=== PATIENT | female | born 1930 | race Caucasian/White ===

== ENCOUNTER 2019-05-22 10:16 | Inpatient (IN) ==
[2019-05-22] MEDS ORDERED: ASPIRIN CHEW 324 MG PO STA (10:26)
[2019-05-22 10:47] LABS: Basophils # (auto) 0.02 K/uL (0-0.2); Basophils % (auto) 0.1 %; Eosinophils # (auto) 0.05 K/uL (0-0.5); Eosinophils % (auto) 0.3 %; Hematocrit (blood only) 25.5 % (37-47); Hemoglobin 8.4 g/dL (12.0-16.0); Immature Granulocytes # (auto) 0.05 K/uL (0.00-0.02); Immature Granulocytes % (auto) 0.3 %; Lymphocytes % (auto) 5.5 %; Mean Corpuscular Hgb Conc 32.9 g/dL (32-36); Mean Corpuscular Volume 91.4 fL (80-100); Mean Platelet Volume 9.5 fL (7.4-10.4); Monocytes # (auto) 0.53 K/uL (0.11-0.59); Monocytes % (auto) 3.2 %; Neutrophils # (auto) 14.92 K/uL (1.4-6.5); Neutrophils % (auto) 90.6 %; Platelet Count 308 K/uL (130-400); RDW Coefficient of Variation 14.9 % (11.5-14.5); RDW Standard Deviation 49.6 fL (36.4-46.3); Red Blood Count 2.79 M/uL (4.2-5.4); White Blood Count 16.47 K/uL (4.8-10.8)
--- NOTE | 2019-05-22 11:05 | XRay Report ---
SINGLE VIEW CHEST CLINICAL HISTORY: Dyspnea. Left-sided chest pain. FINDINGS: An AP, portable, upright chest radiograph is obtained. No prior studies are available for c omparison at the time of dictation. The examination is degraded by portable technique and patient rot ation. The heart is enlarged and there is atherosclerotic calcification of the thoracic aorta. The p ulmonary vasculature is noncongested. Nonspecific interstitial thickening is likely chronic. No airsp [place] consolidation or large pleural effusion is identified. No pneumothorax is seen. The skeletal stru ctures are osteopenic. The bony thorax is grossly intact. Degenerative change and scoliosis are noted in the thoracic spine. Arthritic change is seen in the shoulders. IMPRESSION: Cardiomegaly with no acute cardiopulmonary abnormality. Electronically signed by: Jefe High M.D. 05/22/2019 11:04 AM
[2019-05-22 11:06] LABS: Alanine Aminotransferase 30 U/L (12-78); Albumin Level 2.7 gm/dl (3.4-5.0); Aspartate Aminotransferase 23 U/L (15-37); BUN Creatinine Ratio 31.5 (10-20); Bilirubin Direct 0.1 mg/dl (0-0.2); Blood Urea Nitrogen 23 mg/dl (7-18); Calcium 8.9 mg/dl (8.5-10.1); Carbon Dioxide 24 mmol/L (21-32); Chloride 101 mmol/L (98-107); Creatinine Clr Calc Pharmacy 39.4 ml/min; Est GFR (African American) 84.6; Glucose 121 mg/dl (70-99); Potassium 4.1 mmol/L (3.5-5.1); Sodium 134 mmol/L (136-145)
[2019-05-22 11:10] LABS: Alkaline Phosphatase 104 U/L (45-117); Bilirubin,Total 0.5 mg/dl (0.2-1); Total Protein 6.3 gm/dl (6.4-8.2); Troponin I < 0.015 ng/ml (0-0.045)
[2019-05-22 11:34] LABS: Appearance Urine Clear (Clear); Bacteria Urine Automated Negative (Negative); Bilirubin Urine Negative (Negative); Blood Urine Negative (Negative); Color Urine Dark Yellow; Epithelial Cell Urine Auto >30 /lpf (0-5); Glucose Urine UA Negative (Negative); Ketones Urine Trace (Negative); Leukocyte Esterase Urine 1+ (Negative); Nitrite Urine Negative (Negative); Protein Urine 1+ (Negative); Specific Gravity Urine 1.026 (1.000-1.030); Urobilinogen Urine Negative (Negative)
[2019-05-22] MEDS ORDERED: PANTOprazole 80 MG in DEXTROSE 5% 100 ML IV SCH (11:45)
[2019-05-22] MEDS ORDERED: PANTOprazole 40 MG in DEXTROSE 5% 100 ML IV SCH (12:00)
[2019-05-22 12:25] LABS: INR 1.1 (0.9-1.1); Partial Thromboplastin Ratio 0.9; Partial Thromboplastin Time 25.4 Seconds (21.0-31.0); Prothrombin Time 10.9 Seconds (9.0-12.0)
--- NOTE | 2019-05-22 12:34 | History & Physical Report ---
Date of Service May 22, 2019 Assessment & Plan (1) GI bleed: Undetermined source. No overt melena or hematochezia. No abdominal tenderness or dysphagia. Continue Protonix drip. Clear liquid diet. Serial hemoglobin levels. GI consultation Present on Admission?: Yes (2) Left-sided chest pain: Associated with dyspnea on exertion. No acute EKG changes. Obtain cardiac echo and cardiology consultation. Telemetry. Serial troponins Present on Admission?: Yes (3) Essential hypertension: Continue valsartan and verapamil. Hold hydrochlorothiazide. Hold antihypertensives if hypotension occurs (4) DVT prophylaxis: Avoid heparin and Lovenox. SCDs only (5) DNR (do not resuscitate): Per patient and family request History of Present Illness Chief Complaint: Dyspnea on exertion, left chest pain at rest and with exertion Primary Care Provider: [facility] 89-year-old female with 4 to 5-day history of dyspnea on exertion which resolved at rest. She also had dull left-sided chest pain at rest and with activity but seem to be more associated with exertion. She came to the ED for evaluation. She was noted to be anemic with hemoglobin 8.4 and she had Hemoccult positive stool. There was no melena or hematochezia. No dysphagia. EKG reveals no acute changes. She will need both cardiology and GI evaluation. She has requested a DNR status per advanced directives Allergies Allergy/AdvReac Type Severity Reaction Status Date / Time Sulfa (Sulfonamide AdvReac Unknown Unknown Unverified 05/22/19 11:08 Antibiotics) Home Medications Home Medications Medication Instructions Recorded Confirmed Type acetaminophen [Tylenol] 650 mg PO BID 05/11/19 05/22/19 History aspirin 325 mg PO HS 05/11/19 05/22/19 History atorvastatin 40 mg PO HS 05/11/19 05/22/19 History cetirizine [Zyrtec] 10 mg PO DAILY PRN 05/11/19 05/22/19 History multivitamin 1 tab PO QAM 05/11/19 05/22/19 History omeprazole 20 mg PO QAM 05/11/19 05/22/19 History valsartan-hydrochlorothiazide 1 tab PO QAM 05/11/19 05/22/19 History verapamil 120 mg PO HS 05/11/19 05/22/19 History Past Med/Surg History Medical History Essential hypertension (Chronic) GI bleed (Acute) Left-sided chest pain (Acute) Acute UTI (Acute) Acute hyponatremia (Acute) H/O: hysterectomy Migraines Social History Preferred Language: Togolese marital status: / Current Living Situation: Personal Care Facility current occupational status: retired Feels Safe at Home: Yes Smoking Status: Never smoker Review of Systems Review of Systems: Constitutional-no fever or chills ENT-no blurred vision, no double vision, no epistaxis, no sore throat Respiratory-no cough, no wheezing. Dyspnea on exertion as described above Cardiac-no palpitations, no syncope. Chest pain as described above GI-no nausea, vomiting, diarrhea, melena, hematochezia -no urinary retention, no urinary incontinence, no dysuria, no hematuria Musculoskeletal-no joint pain, no muscle tenderness Skin-no bruising, no rashes, no pruritus Neuro-no isolated weakness, no paresthesia, no weakness Psych-no depression, no anxiety Physical Exam Physical Exam: General-alert and oriented x3, no fevers, no chills HEENT-head atraumatic and normocephalic, TMs intact bilaterally, pupils equal and reactive to light, extraocular muscles intact Neck-no lymphadenopathy or thyromegaly, trachea midline Chest-clear to auscultation percussion. No rales wheezing or rhonchi Cardiac-regular rate and rhythm, normal S1 and S2. Aortic sclerosis/stenosis murmur Abdomen-normal bowel sounds, nontender, no hepatosplenomegaly Extremities-no cyanosis, clubbing, or edema Neuro-cranial nerves II through XII intact, motor and sensory function within normal limits, strength symmetrical 5/5, no focal deficits Psych-normal affect, normal mood Results & Data Vital Signs (Past 12 Hours) Vital Signs Temp Pulse Pulse Resp BP BP Pulse Ox 05/22/19 11:59 67 16 128/42 L 95 05/22/19 10:46 36.9 C 73 16 153/49 H 96 05/22/19 10:21 69 16 96 Laboratory Results 05/22/19 10:32 05/22/19 10:32 PG Care Time/CCT Total # of Minutes Spent Total Time Spent with Patient: Total time spent is greater than 50% in coordination of care (as documented) at patient's floor/unit and/or counseling patient:
[2019-05-22] MEDS ORDERED: CETIRIZINE HCL 10 MG TABLET PO PRN (13:30)
[2019-05-22] MEDS ORDERED: ACETAMINOPHEN 325 MG TAB PO PRN (13:30)
[2019-05-22] MEDS ORDERED: ALUMINUM/MAGNESIUM SUSP 30 ML UDC PO PRN (13:30)
[2019-05-22] MEDS ORDERED: NITROGLYCERIN SL 0.4 MG/TAB TAB SL PRN (13:30)
[2019-05-22] MEDS: SODIUM CHLORIDE 0.9% 1000ML 1,000 ML IV SCH (16:35)
--- NOTE | 2019-05-22 17:51 | Emergency Department Note ---
Entered by Therese Schmid acting as a scribe for ED Provider Note Name: Nighat Greene Age: 89, F Arrives Via: Ambulance Informant: Patient CC: Shortness of breath HPI: The patient is a 89 year old female who arrives for evaluation of her shortness of breath that started 1 hour ago. The patient states that she had had feelings of pressure in her chest intermittently for the past 5 days. The patient states that she has been shivery and shaking latterly, but feels okay now. The patient notes that she has been taking tums to try to ease the pains. Per EMS, the patient had 324mg aspirin prior to arrival. ROS: See above HPI for pertinent positives & negatives. A total of 10 systems reviewed and were otherwise negative. Past Medical History: Acute hyponatremia Past Surgical History: Hysterectomy. Family History: Family history non-contributory. Social History: Living in personal care facility, , never a smoker. Home Medications: See below. Allergies Sulfa. Physical: Vitals: BP 153/49, P 73, RR 16, Temp 36.9 C, O2 sat 96 room air. Exam: GENERAL: Patient is anxious appearing and in mild distress. EYES: No scleral icterus, unremarkable pupils. ENT: Mucous membranes moist, no nasal congestion. NECK: No masses appreciated, no meningismus, trachea is midline. RESPIRATORY: No dyspnea. Clear to auscultation and equal bilaterally. No wheeze, no rhonchi. CARDIOVASCULAR: Regular rate and rhythm. No murmurs, rubs, gallops appreciated. GASTROINTESTINAL: Abdomen soft, non-tender, no peritonitis. Bowel sounds positive. No masses appreciated. RECTAL: Normal perirectal, no tenderness, black heme positive stool. BACK: No midline tenderness, no CVA tenderness EXTREMITIES: Normal motion all extremities, no cyanosis, no edema. NEUROLOGIC: Alert and oriented, no acute motor or sensory deficits, no focal weakness, cranial nerves grossly intact. SKIN: No rash, no jaundice, no diaphoresis. ED Course: Prior Medical Record, Triage/Nursing Notes, Medications, Allergies reviewed by Me Vital Signs: reviewed and remarkable for mild HTN improved. Labs: Reviewed and remarkable for anemia, normal trop Interventions: saline lock, protonix bolus/iv Imaging: Radiology results as stated below per my review and the radiologist's interpretation: SINGLE VIEW CHEST CLINICAL HISTORY: Dyspnea. Left-sided chest pain. FINDINGS: An AP, portable, upright chest radiograph is obtained. No prior studies are available for comparison at the time of dictation. The examination is degraded by portable technique and patient rotation. The heart is enlarged and there is atherosclerotic calcification of the thoracic aorta. The pulmonary vasculature is noncongested. Nonspecific interstitial thickening is likely chronic. No airspace consolidation or large pleural effusion is identified. No pneumothorax is seen. The skeletal structures are osteopenic. The bony thorax is grossly intact. Degenerative change and scoliosis are noted in the thoracic spine. Arthritic change is seen in the shoulders. IMPRESSION: Cardiomegaly with no acute cardiopulmonary abnormality. Electronically signed by: Jefe High M.D. 05/22/2019 11:04 AM EKG: Per My Interpretation: Indication Chest Pain: NSR with PAC 74bpm qtc 412. no ischemia. No previous for comparison Course: 1022: Past medical records reviewed. The patient was evaluated in room A9. A complete history and physical exam was performed. 1132: I reevaluated the patient and she is feeling better. 1136: I spoke with pharmacy and requested IV protonics with bolus and drip. 1138: I discussed the patient's case with Dr. Richardson and he thinks that we should hold on transfusion at this time. 1140: I discussed the patient's case with Dr. Richardson- [facility]. He will evaluate the patient for further management. Blood pressure: Normal. No Referral necessary Disposition: Hospitalization Differentials: Etiologies such as shingles, musculoskeletal pain, pericarditis, myocarditis, cardiac ischemia, pericardial tamponade, pneumonia, pneumothorax, pleural effusion, hemothorax, pleurisy, aortic pathology, pulmonary embolism, intra- abdominal process, as well as others were considered. Medical Decision Makin yr old female with several days of exertional chest pain and MARTINEZ. She notes some periodic epigastric pain thus started on Tums without significant improvement. No history of stomach ulcers though is on omeprazole. Denies history of ACS as well. She is noted to have acute anemia and rectal exam with black heme positive stool. With acute anemia started on protonix gtt, but as she is currently symptom free at rest will hold on transfusion with her current HgB. Already had ASA by EMS. She is stable, breathing comfortably and agreeable to hospitalization. Impression: Upper GI bleed, blood loss anemia, left sided chest pain. The scribe's documentation has been prepared under my direction and personally reviewed by me in its entirety. I confirm that the note above accurately reflects all work, treatment, procedures, and medical decision making performed by me. 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 Beliefs That Will Affect Care: None marital status: / Current Living Situation: Personal Care Facility current occupational status: retired Feels Safe at Home: Yes Safety Concerns: Feels Safe At This Time Smoking Status: Never smoker Hx Alcohol Use: No Hx Substance Use: No Results & Data Vital Signs Vital Signs - 24 hr 05/22/19 10:21 05/22/19 10:44 05/22/19 10:46 Temperature 36.9 C Temperature Source Oral Sepsis Recent Fever Within 48 Hours No Sepsis New/Unexplained Change in Mental Status No Sepsis Action Taken by Nursing No Action Required Pulse Rate 69 73 Pulse Rate [Left] Respiratory Rate 16 16 Respiratory Effort / Characteristics Non-Labored Spontaneous Respiratory Depth Normal Respiratory Pattern Regular Blood Pressure 153/49 H Blood Pressure [Right Arm] Blood Pressure Mean 83 Blood Pressure Mean [Right Arm] Blood Pressure Position Lying Blood Pressure Position [Right Arm] Pulse Oximetry 96 96 Oxygen Delivery Method Room Air Room Air Room Air 05/22/19 11:59 Temperature Temperature Source Sepsis Recent Fever Within 48 Hours Sepsis New/Unexplained Change in Mental Status Sepsis Action Taken by Nursing Pulse Rate Pulse Rate [Left] 67 Respiratory Rate 16 Respiratory Effort / Characteristics Non-Labored Spontaneous Respiratory Depth Normal Respiratory Pattern Blood Pressure Blood Pressure [Right Arm] 128/42 L Blood Pressure Mean Blood Pressure Mean [Right Arm] 70 Blood Pressure Position Blood Pressure Position [Right Arm] Lying Pulse Oximetry 95 Oxygen Delivery Method Room Air Home Medications Current Medication List: was personally reviewed by me Laboratory Data Attestation: I reviewed the patient's lab results. Result diagrams: 05/22/19 16:12 05/22/19 10:32 Lab Results 05/22/19 05/22/19 05/22/19 Range/Units 10:30 10:32 10:32 WBC 16.47 H (4.8-10.8) K/uL RBC 2.79 L (4.2-5.4) M/uL Hgb 8.4 L (12.0-16.0) g/dL Hct 25.5 L (37-47) % MCV 91.4 (80-100) fL MCH 30.1 (25-34) pg MCHC 32.9 (32-36) g/dL RDW Std Deviation 49.6 H (36.4-46.3) fL RDW Coeff of Sean 14.9 H (11.5-14.5) % Plt Count 308 (130-400) K/uL MPV 9.5 (7.4-10.4) fL Immature Gran % (Auto) 0.3 % Neut % (Auto) 90.6 % Lymph % (Auto) 5.5 % Lassen % (Auto) 3.2 % Eos % (Auto) 0.3 % Baso % (Auto) 0.1 % Immature Gran # (Auto) 0.05 H (0.00-0.02) K/uL Neut # (Auto) 14.92 H (1.4-6.5) K/uL Lymph # (Auto) 0.90 L (1.2-3.4) K/uL [place]assen # (Auto) 0.53 (0.11-0.59) K/uL Eos # (Auto) 0.05 (0-0.5) K/uL Baso # (Auto) 0.02 (0-0.2) K/uL PT 10.9 (9.0-12.0) Seconds INR 1.1 (0.9-1.1) APTT 25.4 (21.0-31.0) Seconds PTT Ratio 0.9 Sodium 134 L (136-145) mmol/L Potassium 4.1 (3.5-5.1) mmol/L Chloride 101 (98-107) mmol/L Carbon Dioxide 24 (21-32) mmol/L Anion Gap 9.0 (3-11) BUN 23 H (7-18) mg/dl Creatinine 0.73 (0.6-1.2) mg/dl Est Cr Clr Drug Dosing 39.4 ml/min Est GFR ( Amer) 84.6 Est GFR (Non-Af Amer) 73.0 BUN/Creatinine Ratio 31.5 H (10-20) Glucose 121 H (70-99) mg/dl Calcium 8.9 (8.5-10.1) mg/dl Total Bilirubin 0.5 (0.2-1) mg/dl Direct Bilirubin 0.1 (0-0.2) mg/dl AST 23 (15-37) U/L ALT 30 (12-78) U/L Alkaline Phosphatase 104 (45-117) U/L Troponin I < 0.015 (0-0.045) ng/ml Total Protein 6.3 L (6.4-8.2) gm/dl Albumin 2.7 L (3.4-5.0) gm/dl Lipase 162 (73-393) U/L Urine Color Urine Appearance (Clear) Urine pH (4.5-7.5) Ur Specific [place] (1.000-1.030) Urine Protein (Negative) Urine Glucose (UA) (Negative) Urine Ketones (Negative) Urine Blood (Negative) Urine Nitrite (Negative) Urine Bilirubin (Negative) Urine Urobilinogen (Negative) Ur Leukocyte Esterase (Negative) Urine WBC (Auto) (0-5) /hpf Urine RBC (Auto) (0-4) /hpf U Hyaline Cast (Auto) (0-5) /lpf U Epithel Cells (Auto) (0-5) /lpf Urine Bacteria (Auto) (Negative) Blood Type Antibody Screen 05/22/19 05/22/19 Range/Units 11:17 11:55 WBC (4.8-10.8) K/uL RBC (4.2-5.4) M/uL Hgb (12.0-16.0) g/dL Hct (37-47) % MCV (80-100) fL MCH (25-34) pg MCHC (32-36) g/dL RDW Std Deviation (36.4-46.3) fL RDW Coeff of Sean (11.5-14.5) % Plt Count (130-400) K/uL MPV (7.4-10.4) fL Immature Gran % (Auto) % Neut % (Auto) % Lymph % (Auto) % Lassen % (Auto) % Eos % (Auto) % Baso % (Auto) % Immature Gran # (Auto) (0.00-0.02) K/uL Neut # (Auto) (1.4-6.5) K/uL Lymph # (Auto) (1.2-3.4) K/uL [place] # (Auto) (0.11-0.59) K/uL Eos # (Auto) (0-0.5) K/uL Baso # (Auto) (0-0.2) K/uL PT (9.0-12.0) Seconds INR (0.9-1.1) APTT (21.0-31.0) Seconds PTT Ratio Sodium (136-145) mmol/L Potassium (3.5-5.1) mmol/L Chloride (98-107) mmol/L Carbon Dioxide (21-32) mmol/L Anion Gap (3-11) BUN (7-18) mg/dl Creatinine (0.6-1.2) mg/dl Est Cr Clr Drug Dosing ml/min Est GFR ( Amer) Est GFR (Non-Af Amer) BUN/Creatinine Ratio (10-20) Glucose (70-99) mg/dl Calcium (8.5-10.1) mg/dl Total Bilirubin (0.2-1) mg/dl Direct Bilirubin (0-0.2) mg/dl AST (15-37) U/L ALT (12-78) U/L Alkaline Phosphatase (45-117) U/L Troponin I (0-0.045) ng/ml Total Protein (6.4-8.2) gm/dl Albumin (3.4-5.0) gm/dl Lipase (73-393) U/L Urine Color Dark Yellow Urine Appearance Clear (Clear) Urine pH 5.0 (4.5-7.5) Ur Specific [place] 1.026 (1.000-1.030) Urine Protein 1+ H (Negative) Urine Glucose (UA) Negative (Negative) Urine Ketones Trace H (Negative) Urine Blood Negative (Negative) Urine Nitrite Negative (Negative) Urine Bilirubin Negative (Negative) Urine Urobilinogen Negative (Negative) Ur Leukocyte Esterase 1+ H (Negative) Urine WBC (Auto) 10-30 H (0-5) /hpf Urine RBC (Auto) 5-10 H (0-4) /hpf U Hyaline Cast (Auto) 10-30 H (0-5) /lpf U Epithel Cells (Auto) >30 H (0-5) /lpf Urine Bacteria (Auto) Negative (Negative) Blood Type O Positive Antibody Screen NEGATIVE Administered Medications Sodium Chloride (Nss 1000ml) 1,000 mls @ 60 mls/hr IV .[id number] BAILEY Stop: 06/21/19 13:59 Last Admin: 05/22/19 16:35 Dose: 60 mls/hr Documented by: [id number] Discontinued Medications Aspirin (Aspirin) 324 mg PO NOW STA Stop: 05/22/19 10:27 Last Admin: 05/22/19 10:43 Dose: Not Given Documented by: [id number] Pantoprazole Sodium 80 mg/ (Dextrose) 120 mls @ 480 mls/hr IV 1145 BAILEY Stop: 05/22/19 11:59 Last Infusion: 05/22/19 12:22 Dose: 0 mls/hr Documented by: [id number] Admin: 05/22/19 12:03 Dose: 480 mls/hr Documented by: [id number] Pantoprazole Sodium 40 mg/ (Dextrose) 100 mls @ 20 mls/hr IV Q5H BAILEY Stop: 05/22/19 16:59 Last Admin: 05/22/19 12:22 Dose: 20 mls/hr Documented by: [id number] Imaging Data Radiologist's Impression: Radiology results as stated below per my review and the radiologist's interpretation: SINGLE VIEW CHEST CLINICAL HISTORY: Dyspnea. Left-sided chest pain. FINDINGS: An AP, portable, upright chest radiograph is obtained. No prior studies are available for comparison at the time of dictation. The examination is degraded by portable technique and patient rotation. The heart is enlarged and there is atherosclerotic calcification of the thoracic aorta. The pulmonary vasculature is noncongested. Nonspecific interstitial thickening is likely chronic. No airspace consolidation or large pleural effusion is identified. No pneumothorax is seen. The skeletal structures are osteopenic. The bony thorax is grossly intact. Degenerative change and scoliosis are noted in the thoracic spine. Arthritic change is seen in the shoulders. IMPRESSION: Cardiomegaly with no acute cardiopulmonary abnormality. Electronically signed by: Jefe High M.D. 05/22/2019 11:04 AM Discharge Plan Visit Data *Final* Discharge Date/Time: 05/22/19 13:00 Chief Complaint: Shortness of Breath/Dyspnea ED Provider: Avni Boston Discharge Problem: Upper gastrointestinal bleed, Blood loss anemia, Left-sided chest pain Patient Disposition: Admitted As Inpatient Discharge Instructions Interventions: ED Discharge Assessment Last Done: 05/22/19 13:00 The scribe's documentation has been prepared under my direction and personally reviewed by me in its entirety. I confirm that the note above accurately reflects all work, treatment, procedures, and medical decision making performed by me.
[2019-05-22] MEDS: ATORVASTATIN 40 MG TAB PO SCH (19:58)
[2019-05-22] MEDS: VERAPAMIL HCL 120 MG TABCR PO SCH (19:58)
[2019-05-22] MEDS: SUCRALFATE 1 GM/10 ML UDC PO SCH (22:12)
--- NOTE | 2019-05-23 01:32 | Consultation Report ---
DATE OF CONSULTATION: 05/22/2019 AGE: 89. SEX: Female. RACE: . ATTENDING PHYSICIAN: Dr. Michael Richardson. CONSULTING PHYSICIAN: Dr. Paul Joya. REASON FOR CONSULTATION: GI bleed. HISTORY OF PRESENT ILLNESS: Nighat Greene is an 89-year-old female who presented to the Department of Emergency Medicine earlier today secondary to shortness of breath and chest pressure. She stated that she had been taking Tums prior to her arrival as she had had reflux in the past. She also takes omeprazole 20 mg p.o. q.a.m. and states that she was evaluated in the hospital earlier this month for a UTI. Upon arrival to the Department of Emergency Medicine, her H and H was noted to be 11.0 and 32.1. She was noted to have black heme positive stool in the ER. EKG and troponins were normal in the ER and she did undergo an echocardiogram as well, which showed a left ventricular ejection fraction of 55-60%. Chest x-ray was unremarkable. She was subsequently started on a Protonix drip, admitted. At the time that I saw her, she was feeling slightly improved, though was still continuing to have intermittent chest pain which she described as 4-5/10 in intensity, worse following meals. She described it as a sharp, stabbing pain and does radiate into her left shoulder, though she does state that it feels like heartburn. She denies any hematemesis, melena or hematochezia. She states that she does take aspirin daily, though uses Tylenol for all other pain control. She denies any other NSAID use and denies any blood thinners or antiplatelet therapy other than the aspirin. She denies any further complaints including fevers, chills, lightheadedness, dizziness, palpitations, shortness of breath, cough, dysuria, hematuria, arthralgias, myalgias, numbness or tingling in her extremities or skin rash. PAST MEDICAL HISTORY: Significant for hypertension, GI bleeding, left-sided chest pain, GERD. PAST SURGICAL HISTORY: Includes a hysterectomy. ALLERGIES: SULFA. MEDICATIONS: Include a Protonix drip, Zyrtec 10 mg p.o. daily, Mag-Ox 15 mL p.o. q. 4 p.r.n. constipation, nitroglycerin sublingually 0.4 mg as directed p.r.n. chest pain, Zofran 4 mg IV q. 6 p.r.n., Lipitor 40 mg p.o. at bedtime, verapamil 120 mg p.o. at bedtime, Diovan 320 mg p.o. q.a.m., multivitamin 1 tab p.o. q.a.m. SOCIAL HISTORY: No tobacco, alcohol or illicit drug use. FAMILY HISTORY: Negative for GI malignancy or inflammatory bowel disease. REVIEW OF SYSTEMS: Negative x12 system review other than pertinent positives listed in the HPI. PHYSICAL EXAMINATION: VITAL SIGNS: Temp 36.6, pulse 77, respirations 18, blood pressure 135/65, pulse ox 96% on room air. GENERAL: She is awake, cooperative, no acute distress. HEAD: Normocephalic, atraumatic. EYES: Pupils equal, round. Extraocular muscles are intact. ENT: External evaluation of ears and nose are normal. Oropharynx is clear. NECK: Soft and supple. There is no JVD or lymphadenopathy. CHEST: Clear to auscultation bilaterally. CARDIOVASCULAR SYSTEM: Regular rate and rhythm. ABDOMEN: Soft, nontender, nondistended. Positive bowel sounds. There is no hepatosplenomegaly or stigmata of chronic liver disease. EXTREMITIES: No clubbing, cyanosis, or edema. SKIN: Soft, pink. Good turgor. LABORATORY STUDIES AND RADIOGRAPHIC STUDIES: Were reviewed in the HPI. IMPRESSION: An 89-year-old female presenting with shortness of breath, noted to have acute blood loss anemia with dark tarry heme positive stool in the ER. PLAN: At the present time, I would recommend that the patient receive a clear liquid diet. She will be kept n.p.o. after midnight. I would continue her on a Protonix drip at 8 mg per hour. I would recommend that she undergo transfusions to maintain her H and H above 8 and 24. I would also recommend that she undergo an upper endoscopy tomorrow for further evaluation of her symptoms. I did add Carafate therapy 1 gram p.o. q.i.d. a.c. and at bedtime to her regimen at present and I will make further recommendations following the above noted testing. Once again, thanks for allowing me to participate in the care of this patient. If you have any further questions, please do not hesitate in contacting me.
[2019-05-23] MEDS: VALSARTAN 80 MG TAB PO SCH (08:04)
[2019-05-23] MEDS: SODIUM CHLORIDE 0.9% 1000ML 1,000 ML IV SCH (08:29)
--- NOTE | 2019-05-23 08:54 | History & Physical Bridge Note ---
Date of Service May 23, 2019 History & Physical Bridge Note I have examined the patient, reviewed the History & Physical and in the interval since the performance of the History & Physical I have noted the following changes of clinical significance: no changes noted that would interfere with EGD today. Patient is NPO. Would recommend proceeding with EGD today. Would recommend resuming Protonix Drip. H/H 8.7/25.5. Supervising Physician Co-Signing Physician Notes Agree with ASHU Clifton as above Abd: Soft, NT, ND, +BS Continue current therapy EGD now
--- NOTE | 2019-05-23 08:58 | Anesthesiology Consultation ---
Date of Service May 23, 2019 Assessment & Plan (1) Encounter for pre-operative examination: Chart Review Chart Review: Acceptable Risk for Surgery and Patient NOT seen in Pre Admission Testing Consults Requested none History Surgery Operation Date: 05/23/19 10:15 Proposed Procedures p Esophagogastroduodenoscopy Dr Toan Rivera Case, DO Height/Weight Height: 5 ft 1 in Weight: 50.9 kg Allergies Allergy/AdvReac Type Severity Reaction Status Date / Time Sulfa (Sulfonamide AdvReac Unknown Unknown Unverified 05/22/19 11:08 Antibiotics) Medications Home Medications Medication Instructions Recorded Confirmed Last Taken acetaminophen [Tylenol] 650 mg PO BID 05/11/19 05/22/19 05/22/19 aspirin 325 mg PO HS 05/11/19 05/22/19 05/21/19 atorvastatin 40 mg PO HS 05/11/19 05/22/19 05/21/19 cetirizine [Zyrtec] 10 mg PO DAILY PRN 05/11/19 05/22/19 Unknown multivitamin 1 tab PO QAM 05/11/19 05/22/19 05/22/19 omeprazole 20 mg PO QAM 05/11/19 05/22/19 05/22/19 valsartan-hydrochlorothiazide 1 tab PO QAM 05/11/19 05/22/19 05/22/19 verapamil 120 mg PO HS 05/11/19 05/22/19 05/21/19 Active Medications Generic Name Dose Route Start Last Admin Trade Name Freq PRN Reason Stop Dose Admin Atorvastatin Calcium 40 mg 05/22/19 21:00 05/22/19 19:58 Lipitor PO 06/21/19 20:59 40 mg HS BAILEY Administration Sodium Chloride 1,000 mls @ 60 mls/hr 05/22/19 14:00 05/23/19 08:29 Nss 1000ml IV 06/21/19 13:59 60 mls/hr .[id number] BAILEY Administration Sucralfate 1 gm 05/22/19 21:00 05/22/19 22:12 Carafate PO 06/21/19 20:59 1 gm ACHS BAILEY Administration Valsartan 320 mg 05/23/19 09:00 05/23/19 08:04 Diovan PO 06/22/19 08:59 320 mg QAM BAILEY Administration Verapamil HCl 120 mg 05/22/19 21:00 05/22/19 19:58 Calan Sr PO 06/21/19 20:59 120 mg HS BAILEY Administration Past Medical History Medical History Essential hypertension (Chronic) GI bleed (Acute) Left-sided chest pain (Acute) Acute UTI (Acute) Acute hyponatremia (Acute) Migraines Exercise / Class Metabolic Activity III < 4 Walking/Shop/Light housework Past Family History Family History Other Family history non-contributory Past Surgical History Surgical History H/O: hysterectomy Past Anesthesia History No Hx of Anesthesia Complications and No Family Hx of Anesthesia Complications History of PONV No Hx of PONV and No Hx of Motion Sickness Social History Smoking Status: Never smoker Hx Alcohol Use: No Hx Substance Use: No Physical Exam Vital Signs Last Vital Signs Temp 36.7 C 05/23/19 07:53 Pulse 72 05/23/19 07:53 Resp 17 05/23/19 07:53 BP 148/43 H 05/23/19 07:53 Pulse Ox 96 05/23/19 07:53 Testing Laboratory Results 05/23/19 06:01 05/22/19 10:32 PT 10.9 Seconds (9.0-12.0) 05/22/19 10:30 INR 1.1 (0.9-1.1) 05/22/19 10:30 APTT 25.4 Seconds (21.0-31.0) 05/22/19 10:30 Urine Color Dark Yellow 05/22/19 11:17 Urine Appearance Clear (Clear) 05/22/19 11:17 Urine pH 5.0 (4.5-7.5) 05/22/19 11:17 Ur Specific Preston 1.026 (1.000-1.030) 05/22/19 11:17 Urine Protein 1+ (Negative) H 05/22/19 11:17 Urine Glucose (UA) Negative (Negative) 05/22/19 11:17 Urine Ketones Trace (Negative) H 05/22/19 11:17 Urine Nitrite Negative (Negative) 05/22/19 11:17 Ur Leukocyte Esterase 1+ (Negative) H 05/22/19 11:17 Urine WBC (Auto) 10-30 /hpf (0-5) H 05/22/19 11:17 Urine RBC (Auto) 5-10 /hpf (0-4) H 05/22/19 11:17 U Hyaline Cast (Auto) 10-30 /lpf (0-5) H 05/22/19 11:17 U Epithel Cells (Auto) >30 /lpf (0-5) H 05/22/19 11:17 Urine Bacteria (Auto) Negative (Negative) 05/22/19 11:17 Blood Type O Positive 05/22/19 11:55 Antibody Screen NEGATIVE 05/22/19 11:55 Laboratory Tests 05/22/19 05/22/19 05/23/19 10:32 16:12 00:26 Troponin I < 0.015 < 0.015 < 0.015 05/23/19 06:01 Troponin I 0.019 Electrocardiogram Date: 05/23/19 Findings: + NSR @ (75) 23-MAY-2019 06:21:30 [facility]-PCU ROUTINE RETRIEVAL Sinus rhythm with Premature atrial complexes Otherwise normal ECG When compared with ECG of 22-MAY-2019 10:21, No significant change was found Chest X-Ray Date: 05/22/19 SINGLE VIEW CHEST CLINICAL HISTORY: Dyspnea. Left-sided chest pain. FINDINGS: An AP, portable, upright chest radiograph is obtained. No prior s tudies are available for comparison at the time of dictation. The examination is degraded by portable technique and patient rotation. The heart is enlarged and there is atherosclerotic calcification of the thoracic aorta. The pulmonary vasculature is noncongested. Nonspecific interstitial thickening is likely chronic. No airspace consolidation or large pleural effusion is identified. No pneumothorax is seen. The skeletal structures are osteopenic. The bony thorax is grossly intact. Degenerative change and scoliosis are noted in the thoracic spine. Arthritic change is seen in the shoulders. IMPRESSION: Cardiomegaly with no acute cardiopulmonary abnormality. Echocardiogram Date: 05/22/19 EF: 55-60% LV Function: normal RWMA: + none Other Findings: + LVH Valvular Disease: + (moderate)
[2019-05-23] MEDS ORDERED: PANTOprazole 80 MG in DEXTROSE 5% 100 ML IV ONE (09:15)
[2019-05-23] MEDS ORDERED: PANTOprazole 40 MG in DEXTROSE 5% 100 ML IV SCH (09:30)
[2019-05-23] MEDS ORDERED: PROPOFOL IV EMULSION 10 MG/ML 20 ML VIAL IV ONE (09:48)
[2019-05-23] MEDS ORDERED: LIDOCAINE HCL 2% 2 ML VIAL/AMP(20MG/ML) INFIL ONE (09:48)
[2019-05-23] MEDS ORDERED: ePHEDrine sulfate 50 MG/ML SYR ONE (10:18)
--- NOTE | 2019-05-23 10:26 | GI REPORT ---
Patient Name: Nighat Greene Procedure Date: 05/23/2019 10:00 AM Date of : 1930 Admit Type: Inpatient Age: 89 Gender: Female Attending MD: Paul Joya DO Procedure: Upper GI endoscopy Providers: Paul Joya DO Referring MD: Derick Trammell Md Indications: Acute post hemorrhagic anemia Medicines: Monitored Anesthesia Care Complications: No immediate complications. Estimated Blood Loss: Estimated blood loss: none. Procedure: Pre-Anesthesia Assessment: - Prior to the procedure, a History and Physical was performed, and patient medications and allergies were reviewed. The patient's tolerance of previous anesthesia was also reviewed. The risks and benefits of the procedure and the sedation options and risks were discussed with the patient. All questions were answered, and informed consent was obtained. Prior Anticoagulants: The patient has taken aspirin, last dose was 1 day prior to procedure. ASA Grade Assessment: III - A patient with severe systemic disease. After reviewing the risks and benefits, the patient was deemed in satisfactory condition to undergo the procedure. After obtaining informed consent, the endoscope was passed under direct vision. Throughout the procedure, the patient's blood pressure, pulse, and oxygen saturations were monitored continuously. The Endoscope was introduced through the mouth, and advanced to the second part of duodenum. The upper GI endoscopy was accomplished without difficulty. The patient tolerated the procedure well. Findings: Diffuse, white plaques were found in the entire esophagus. Cells for cytology were obtained by brushing. Localized moderate inflammation characterized by erythema was found in the gastric antrum. The examined duodenum was normal. Impression: - Esophageal plaques were found, consistent with candidiasis. Cells for cytology obtained. - Gastritis. - Normal examined duodenum. Recommendation: - Return patient to [facility] for ongoing care. - Clear liquid diet. - Continue present medications, but stop Protonix gtt. and start Protonix 40 mg IV BID Paul Joya DO 05/23/2019 10:26:19 AM This report has been signed electronically. Note Initiated On: 05/23/2019 10:00 AM Number of Addenda: 0 I attest to the content of the Intraoperative Record and orders documented therein, exceptions below {[id number]}
[2019-05-23] MEDS ORDERED: FLUCONAZOLE 100 MG TAB PO ONE (11:30)
[2019-05-23] MEDS: SUCRALFATE 1 GM/10 ML UDC PO SCH ×4 (12:33→21:57)
[2019-05-23] MEDS: MULTIVITAMIN TAB PO SCH (12:34)
--- NOTE | 2019-05-23 13:00 | Anesthesiology Progress Note ---
Date of Service May 23, 2019 Anesthesia Post Procedure Vital Signs Vital Signs: Temp Pulse Pulse Resp BP BP Pulse Ox 05/23/19 11:35 36.6 C 89 17 172/51 H 90 05/23/19 10:53 72 22 152/44 H 98 05/23/19 10:38 72 24 151/49 H 97 05/23/19 10:23 80 24 155/57 H 95 05/23/19 09:51 36.8 C 75 24 166/64 H 96 05/23/19 07:53 36.7 C 72 17 148/43 H 96 05/23/19 03:12 37.0 C 94 H 30 H 171/62 H 95 05/23/19 00:41 37.4 C 77 18 164/52 H 97 05/23/19 00:12 80 05/22/19 22:23 90 05/22/19 20:09 36.9 C 70 18 161/60 H 93 05/22/19 18:22 77 05/22/19 15:25 36.6 C 65 18 135/65 96 05/22/19 13:31 36.5 C 70 18 160/61 H 95 Transfer of Care Handoff Completed per policy Notes Mental Status: alert / awake / arousable and participated in evaluation Patient Amnestic to Procedure: Yes Nausea / Vomiting: adequately controlled Pain: adequately controlled Airway Patency, RR, SpO2: stable & adequate BP & HR: stable & adequate Hydration State: stable & adequate Anesthetic Complications: no major complications apparent and Pt Satisfied with anesthetic care
[2019-05-23] MEDS: PANTOprazole 40 MG in SYRINGE 0 ML IV SCH ×2 (13:15→22:08)
--- NOTE | 2019-05-23 14:06 | Cardiology Consultation ---
Date of Consultation May 23, 2019 Assessment & Plan (1) MARTINEZ (dyspnea on exertion): Suspect her exertional dyspnea and complaints of a dull exertional chest pain related to her profound anemia in the face of her mild to moderate aortic stenosis. Fortunately, her EKG shows no acute findings, and her troponin levels are all normal. (2) Essential hypertension: Borderline control on her current medical regimen. (3) Aortic stenosis: Aortic valve was difficult to visualize on her echocardiogram. However, 2 dimensional imaging suggests mild to moderate aortic stenosis. (4) Hypercholesterolemia: Continue atorvastatin. History of Present Illness Attending Physician: Derick Trammell MD History of Present Illness Mrs. Greene is an 89-year-old female admitted yesterday with exertional dyspnea, chest discomfort, acute anemia, and black heme-positive stools. This consists was ordered to assist in her cardiac management. She was in her usual state of health approximately 45 days prior to presentation. She began to note significant exertional dyspnea. She also noted an occasional left-sided dull chest discomfort lasting for several minutes when physically active. She presented to the emergency room with the above complaints was found have a hemoglobin of 8.4. Her stools were heme positive and black on evaluation. Hospitalization was recommended for further care. The patient has never known of a cardiac event. She has never experienced exertional chest pain or dyspnea told that described above. She has never experienced syncope, presyncope, PND, orthopnea, palpitations, lower extremity edema, or claudication. Currently, patient resting comfortably better without complaints. She is scheduled for an upper endoscopy later this morning. Past medical and surgical history 1. Hypertension 2. Hypercholesterolemia 3. GERD 4. Left TKR-November 2017 5. Total abdominal hysterectomy 6. DNR Social history x5 years, lives alone, but close to her daughter. [place]. No tobacco or alcohol Family history Noncontributory Review of systems A 10 point review of systems was undertaken and negative except for that described above. Allergies Allergy/AdvReac Type Severity Reaction Status Date / Time Sulfa (Sulfonamide AdvReac Unknown Unknown Unverified 05/22/19 11:08 Antibiotics) Home Medications Home Medications Medication Instructions Recorded Confirmed Type acetaminophen [Tylenol] 650 mg PO BID 05/11/19 05/22/19 History aspirin 325 mg PO HS 05/11/19 05/22/19 History atorvastatin 40 mg PO HS 05/11/19 05/22/19 History cetirizine [Zyrtec] 10 mg PO DAILY PRN 05/11/19 05/22/19 History multivitamin 1 tab PO QAM 05/11/19 05/22/19 History omeprazole 20 mg PO QAM 05/11/19 05/22/19 History valsartan-hydrochlorothiazide 1 tab PO QAM 05/11/19 05/22/19 History verapamil 120 mg PO HS 05/11/19 05/22/19 History Patient History Medical History Essential hypertension (Chronic) GI bleed (Acute) Left-sided chest pain (Acute) Acute UTI (Acute) Acute hyponatremia (Acute) Migraines Surgical History H/O: hysterectomy Family History Other Family history non-contributory Social History Preferred Language: Greenlandic Communication Ability: Effective [employer] Required: Yes Beliefs That Will Affect Care: None marital status: / Current Living Situation: Personal Care Facility current occupational status: retired Feels Safe at Home: Yes Safety Concerns: Feels Safe At This Time Smoking Status: Never smoker Hx Alcohol Use: No Hx Substance Use: No Physical Exam Physical Exam: In general is a well-developed well-nourished white female seated at the bedside without complaints. HEENT exam is negative. Neck is supple with full carotid upstrokes. No carotid bruits. Jugular venous pressure is flat at 90 degrees. There is no thyromegaly. Cardiovascular exam reveals a regular rhythm with a normal S1 and S2 to. A 2/6 crescendo decrescendo systolic murmur is heard loudest at the base. Lungs are clear without rales, rhonchi or wheezes. Abdomen is soft nontender without bruits. Extremities reveal intact radial artery pulses bilaterally. There is no peripheral edema. Results & Data Vital Signs (Past 12 Hours) Vital Signs Temp Pulse Resp BP BP Pulse Ox 05/23/19 11:35 36.6 C 89 17 172/51 H 90 05/23/19 10:53 72 22 152/44 H 98 05/23/19 10:38 72 24 151/49 H 97 05/23/19 10:23 80 24 155/57 H 95 05/23/19 09:51 36.8 C 75 24 166/64 H 96 05/23/19 07:53 36.7 C 72 17 148/43 H 96 05/23/19 03:12 37.0 C 94 H 30 H 171/62 H 95 Laboratory Results CBC notes a hemoglobin of 8.7, hematocrit 25.5, white count 16.4, platelet count of [id number]. Electrolytes note a sodium of 134, potassium 4.1, chloride 101, bicarb 24, BUN 23, creatinine 0.73, and glucose of 121. Three troponin I levels are undetectable less than 0.015. A 4th value is 0.019. Diagnostic Findings EKG notes normal sinus rhythm with occasional PAC. Echocardiogram notes normal left ventricular systolic function ejection fraction 55-60%. There are no wall motion abnormalities. There is mild LVH and mild to moderate aortic stenosis is suggested. Chest x-ray shows cardiomegaly but no acute findings.
--- NOTE | 2019-05-23 15:26 | Hospitalist Progress Note ---
Date of Service May 23, 2019 Assessment & Plan (1) GI bleed: EGD on 05/23 showed esophagitis consistent with candiasis along with gastritis. No overt melena or hematochezia. - GI consulted - Appreciate recs - Consider CT a/p per GI - PPI IV BID - Fluconazole for esophageal candidiasis (2) Left-sided chest pain: Associated with dyspnea on exertion. No acute EKG changes. - Echo on 05/22 showed EF 55-60%. Mild/moderate aortic stenosis. - Appreciate cardiology recs (3) Essential hypertension: BP mildly elevated in the hospital at 170/50. - Continue valsartan and verapamil. - Hold hydrochlorothiazide. - Will not aggressively treat given her aortic stenosis (4) DVT prophylaxis: Avoid heparin and Lovenox. SCDs only. Subjective Still very short of breath with exertion. Review of Systems Review of Systems: All systems reviewed & are unremarkable except as noted in HPI & below Physical Exam Constitutional: WD/WN, vitals as above + acute distress (Breathing hard) Eyes: EOM intact bilaterally; no conjunctival abnormality ENMT: external ear and nose normal, oropharynx normal Neck: trachea midline, no thyromegaly normal visual inspection Respiratory: normal respiratory effort, lungs clear to auscultation no respiratory distress Cardiovascular: RRR, no murmur, no edema Gastrointestinal (Abdomen): Inspection/Auscultation: abdomen normal to inspection; abdomen not distended Musculoskeletal: no cyanosis or clubbing, extremities motor strength 5/5 Skin: no rashes, warm and dry Neurologic: moves all extremities and awake Psychiatric: Orientation: alert, oriented to person and cooperative Results & Data Vital Signs (Past 12 Hours) Vital Signs Temp Pulse Resp BP BP Pulse Ox 05/23/19 11:35 36.6 C 89 17 172/51 H 90 05/23/19 10:53 72 22 152/44 H 98 05/23/19 10:38 72 24 151/49 H 97 05/23/19 10:23 80 24 155/57 H 95 05/23/19 09:51 36.8 C 75 24 166/64 H 96 05/23/19 07:53 36.7 C 72 17 148/43 H 96 PG Care Time/CCT Total # of Minutes Spent Total Time Spent with Patient: Total time spent is greater than 50% in coordination of care (as documented) at patient's floor/unit and/or counseling patient:
[2019-05-23] MEDS ORDERED: HydrALAZINE HCL 20 MG/ML VIAL IV ONE (16:05)
[2019-05-23] MEDS ORDERED: FUROSEMIDE 40 MG/4 ML VIAL IV STA (16:48)
[2019-05-23] MEDS ORDERED: LEVALBUTEROL 1.25MG/0.5ML NEB NEB STA ×2 (16:51→17:03)
[2019-05-23] MEDS ORDERED: IPRATROPIUM BROMIDE NEB SOLN 0.02% 2.5 ML VIAL NEB STA (16:52)
[2019-05-23 16:59] LABS: Basophils # (auto) 0.02 K/uL (0-0.2); Basophils % (auto) 0.1 %; Eosinophils # (auto) 0.06 K/uL (0-0.5); Eosinophils % (auto) 0.3 %; Hematocrit (blood only) 27.8 % (37-47); Hemoglobin 9.2 g/dL (12.0-16.0); Immature Granulocytes # (auto) 0.07 K/uL (0.00-0.02); Immature Granulocytes % (auto) 0.3 %; Lymphocytes # (auto) 0.98 K/uL (1.2-3.4); Lymphocytes % (auto) 4.8 %; Mean Corpuscular Volume 91.1 fL (80-100); Mean Platelet Volume 9.6 fL (7.4-10.4); Monocytes # (auto) 0.97 K/uL (0.11-0.59); Monocytes % (auto) 4.8 %; Neutrophils # (auto) 18.12 K/uL (1.4-6.5); Neutrophils % (auto) 89.7 %; Platelet Count 428 K/uL (130-400); RDW Standard Deviation 50.3 fL (36.4-46.3); Red Blood Count 3.05 M/uL (4.2-5.4); White Blood Count 20.22 K/uL (4.8-10.8)
[2019-05-23 17:01] LABS: Base Excess ABG -3.6 mEq/L (-9-1.8); HCO3 ABG 19 mmol/L (19-24); Oxygen Saturation ABG 96.6 % (90-95); PCO2 ABG 26 mmHg (35-46); PO2 ABG 88 mm/Hg (80-95); pH ABG 7.48 (7.35-7.45)
[2019-05-23 17:02] LABS: Allen Test Pos (Pos)
[2019-05-23] MEDS ORDERED: FUROSEMIDE 40 MG in SYRINGE 0 ML IV ONE (17:15)
--- NOTE | 2019-05-23 17:16 | XRay Report ---
XR chest 1V portable CLINICAL HISTORY: Acute dyspnea COMPARISON STUDY: 05/22/2019 FINDINGS: The heart is enlarged. There is an interstitial pulmonary edema pattern. Small pleural effu sions are suspected.[ IMPRESSION: Interstitial pulmonary edema with suspected small pleural effusions Electronically signed by: Anegl Mei M.D. 05/23/2019 5:15 PM
[2019-05-23] MEDS ORDERED: FUROSEMIDE 40 MG/4 ML VIAL IV ONE (17:24)
[2019-05-23 17:54] LABS: Mean Corpuscular Hgb Conc 33.1 g/dL (32-36)
--- NOTE | 2019-05-23 18:25 | Pulmonary Consultation ---
Date of Consultation May 23, 2019 Assessment & Plan (1) Pulmonary edema cardiac cause: I have reviewed the chest x-ray as well as ABG. The patient is in acute pulmonary edema. We have started on IV Lasix she was given 40 mg of IV Lasix. Also was started on BiPAP 10/5 with 40% FiO2 and she is more comfortable. She is also putting out good urine. Her oxygenation is also improved and she is more comfortable at this time. Initially her blood pressure was 215 systolic that is also coming down. I have discussed with Dr. Trammell and recommended strongly to repeat the dose of Lasix and continue with the BiPAP at this time. Also monitor the urine output. The patient is also getting IV fluids at 60 cc normal saline which was stopped. The patient is maintaining her hemoglobin which is stable at this time and there is no more GI bleed. Had a long discussion with the patient as well as family members and also Dr. Trammell and the nursing staff and also with respiratory therapist. I spent greater than 55 minutes of my clinical time. (2) Aortic stenosis: (3) MARTINEZ (dyspnea on exertion): (4) Essential hypertension: (5) Upper gastrointestinal bleed: History of Present Illness Reason for Consultation: Increasing shortness of breath, acute pulmonary edema. Requesting Physician: Derick Trammell MD Attending Physician: Derick Trammell MD History of Present Illness History of Present Illness Chief Complaint: Dyspnea on exertion, left chest pain at rest and with exertion Primary Care Provider: [facility] 89-year-old female with 4 to 5-day history of dyspnea on exertion which resolved at rest. She also had dull left-sided chest pain at rest and with activity but seem to be more associated with exertion. She came to the ED for evaluation. She was noted to be anemic with hemoglobin 8.4 and she had Hemoccult positive stool. There was no melena or hematochezia. No dysphagia. EKG reveals no acute changes. She will need both cardiology and GI evaluation. She has requested a DNR status per advanced directives. The patient today got worse and her breathing also got worse. She was very tachypneic hypoxemic. At that time the chest x-ray was done which was consistent with acute pulmonary edema. The patient was started on BiPAP and she also received 40 mg of IV Lasix. She started putting out urine and she seems to be comfortable right now on BiPAP. She feels that her breathing is improved. She denies having any chest pain or palpitations. I have also reviewed her ABG which was consistent with the respiratory alkalosis, With pH of 7.48 and PCO2 of 26 and her oxygenation was PO2 of 88 and saturation was 96%. Allergies Allergy/AdvReac Type Severity Reaction Status Date / Time Sulfa (Sulfonamide AdvReac Unknown Unknown Unverified 05/22/19 11:08 Antibiotics) Home Medications Home Medications Medication Instructions Recorded Confirmed Type acetaminophen [Tylenol] 650 mg PO BID 05/11/19 05/22/19 History aspirin 325 mg PO HS 05/11/19 05/22/19 History atorvastatin 40 mg PO HS 05/11/19 05/22/19 History cetirizine [Zyrtec] 10 mg PO DAILY PRN 05/11/19 05/22/19 History multivitamin 1 tab PO QAM 05/11/19 05/22/19 History omeprazole 20 mg PO QAM 05/11/19 05/22/19 History valsartan-hydrochlorothiazide 1 tab PO QAM 05/11/19 05/22/19 History verapamil 120 mg PO HS 05/11/19 05/22/19 History Patient History Medical History Essential hypertension (Chronic) GI bleed (Acute) Left-sided chest pain (Acute) Acute UTI (Acute) Acute hyponatremia (Acute) Migraines Surgical History H/O: hysterectomy Family History Other Family history non-contributory Social History Preferred Language: Ukrainian Communication Ability: Effective 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 The patient denies having any shortness of breath or chest pain. Also denies having any nausea vomiting or abdominal pain. Physical Exam Physical Exam: Elderly female remains in the bed not any acute distress. Curr ently she is on a BiPAP and is breathing comfortably. She is also oxygenating well into high 90s to 100% on 40% FiO2. HEENT: The pupils are reactive to light. Unable to examine oral cavity because she is on a BiPAP at this time. Neck:Supple, No JVD or cervical or supraclavicular adenopathy. Chest: Bilateral coarse breathing with crackles posteriorly care home up the chest. Few scattered wheezing, no rhonchi heard. Heart: S1-S2 heard. Regular rate and rhythm. No murmur or rubs or gallops appreciated. GI: Abdomen is soft nontender, bowel sounds are positive. No mass felt. Extremities: Bilateral trace to 1+ edema. Nontender calf muscles. No clubbing seen. Neuro: The patient is alert, awake and follows simple commands and is moving all her extremities. No neurological deficit at this time. Skin: No rash no lesion. Results & Data Vital Signs (Past 12 Hours) Vital Signs Temp Pulse Resp BP BP Pulse Ox 05/23/19 17:42 118 H 28 H 186/68 H 99 05/23/19 16:37 128 H 30 H 95 05/23/19 16:33 125 H 199/77 H 95 05/23/19 16:09 117 H 230/79 H 90 05/23/19 15:42 36.9 C 89 20 217/71 H 96 05/23/19 11:35 36.6 C 89 17 172/51 H 90 05/23/19 10:53 72 22 152/44 H 98 05/23/19 10:38 72 24 151/49 H 97 05/23/19 10:23 80 24 155/57 H 95 05/23/19 09:51 36.8 C 75 24 166/64 H 96 05/23/19 07:53 36.7 C 72 17 148/43 H 96 Laboratory Results Abnormal lab results 05/23/19 05/23/19 05/23/19 Range/Units 00:26 06:01 16:49 WBC (4.8-10.8) K/uL RBC (4.2-5.4) M/uL Hgb 8.2 L 8.7 L (12.0-16.0) g/dL Hct (37-47) % RDW Std Deviation (36.4-46.3) fL RDW Coeff of Sean (11.5-14.5) % Plt Count (130-400) K/uL Immature Gran # (Auto) (0.00-0.02) K/uL Neut # (Auto) (1.4-6.5) K/uL Lymph # (Auto) (1.2-3.4) K/uL Woodson # (Auto) (0.11-0.59) K/uL ABG pH (7.35-7.45) ABG pCO2 (35-46) mmHg ABG O2 Saturation (90-95) % NT-Pro-B Natriuret Pep 2673 H (0-1800) pg/ml 05/23/19 05/23/19 Range/Units 16:49 16:49 WBC 20.22 H (4.8-10.8) K/uL RBC 3.05 L (4.2-5.4) M/uL Hgb 9.2 L (12.0-16.0) g/dL Hct 27.8 L (37-47) % RDW Std Deviation 50.3 H (36.4-46.3) fL RDW Coeff of Sean 15.0 H (11.5-14.5) % Plt Count 428 H (130-400) K/uL Immature Gran # (Auto) 0.07 H (0.00-0.02) K/uL Neut # (Auto) 18.12 H (1.4-6.5) K/uL Lymph # (Auto) 0.98 L (1.2-3.4) K/uL Woodson # (Auto) 0.97 H (0.11-0.59) K/uL ABG pH 7.48 H (7.35-7.45) ABG pCO2 26 L (35-46) mmHg ABG O2 Saturation 96.6 H (90-95) % NT-Pro-B Natriuret Pep (0-1800) pg/ml Diagnostic Findings XR chest 1V portable CLINICAL HISTORY: Acute dyspnea COMPARISON STUDY: 05/22/2019 FINDINGS: The heart is enlarged. There is an interstitial pulmonary edema pattern. Small pleural effusions are suspected.[ IMPRESSION: Interstitial pulmonary edema with suspected small pleural effusions Electronically signed by: Angel Mei M.D. 05/23/2019 5:15 PM Medications Administered Current Inpatient Medications Acetaminophen (Tylenol) 650 mg PO Q4H PRN PRN Reason: Pain or Fever Stop: 06/21/19 13:29 Al Hydrox/Mg Hydrox/Simethicone (Maalox) 15 ml PO Q4H PRN PRN Reason: Dyspepsia Stop: 06/21/19 13:29 Atorvastatin Calcium (Lipitor) 40 mg PO [facility] Stop: 06/21/19 20:59 Last Admin: 05/22/19 19:58 Dose: 40 mg Documented by: Cetirizine HCl (Zyrtec) 10 mg PO DAILY PRN PRN Reason: Allergy Symptoms Stop: 06/21/19 13:29 Fluconazole (Diflucan) 200 mg PO [facility]; Protocol Stop: 06/12/19 08:59 Pantoprazole Sodium 40 mg/ (Syringe) 10 mls @ 5 mls/min IV BID@0900,2100 [facility] Stop: 06/22/19 10:29 Last Admin: 05/23/19 13:15 Dose: 5 mls/min Documented by: Levalbuterol HCl (Xopenex 0.63 Mg/3 Ml Neb) 0.63 mg NEB Q6R [facility] Stop: 06/22/19 19:59 Multivitamins (Multivitamin Tab) 1 tab PO [facility] Stop: 06/22/19 08:59 Last Admin: 05/23/19 12:34 Dose: 1 tab Documented by: Nitroglycerin (Nitrostat) 0.4 mg SL UD PRN PRN Reason: Chest Pain Stop: 06/21/19 13:29 Ondansetron HCl (Zofran) 4 mg IV Q6H PRN PRN Reason: Nausea Stop: 06/21/19 13:29 Sucralfate (Carafate) 1 gm PO [facility] Stop: 06/21/19 20:59 Last Admin: 05/23/19 16:30 Dose: Not Given Documented by: [facility] (Diovan) [facility] Stop: 06/22/19 08:59 Last Admin: 05/23/19 08:04 Dose: 320 mg Documented by: Verapamil HCl (Calan Sr) 120 mg PO [facility] Stop: 06/21/19 20:59 Last Admin: 05/22/19 19:58 Dose: 120 mg Documented by:
[2019-05-23] MEDS: LEVALBUTEROL HCL 0.63 MG/3 ML NEB NEB SCH (19:12)
[2019-05-23] MEDS: ATORVASTATIN 40 MG TAB PO SCH (21:57)
[2019-05-23] MEDS: VERAPAMIL HCL 120 MG TABCR PO SCH (21:57)
[2019-05-24] MEDS: LEVALBUTEROL HCL 0.63 MG/3 ML NEB NEB SCH ×4 (01:43→18:59)
[2019-05-24 05:54] LABS: Hematocrit (blood only) 24.5 % (37-47); Hemoglobin 8.3 g/dL (12.0-16.0); Mean Corpuscular Hgb Conc 33.9 g/dL (32-36); Mean Corpuscular Volume 89.7 fL (80-100); Mean Platelet Volume 9.2 fL (7.4-10.4); Platelet Count 280 K/uL (130-400); RDW Coefficient of Variation 14.9 % (11.5-14.5); RDW Standard Deviation 48.6 fL (36.4-46.3); Red Blood Count 2.73 M/uL (4.2-5.4); White Blood Count 13.96 K/uL (4.8-10.8)
[2019-05-24 06:21] LABS: BUN Creatinine Ratio 26.3 (10-20); Calcium 8.6 mg/dl (8.5-10.1); Creatinine Clr Calc Pharmacy 31.6 ml/min; Est GFR (African American) 64.8; Est GFR (Non-African American) 55.9; Potassium 4.2 mmol/L (3.5-5.1)
[2019-05-24 06:26] LABS: Ferritin 161.9 ng/ml (8-388)
[2019-05-24] MEDS: ATORVASTATIN 40 MG TAB PO SCH (07:59)
[2019-05-24] MEDS: MULTIVITAMIN TAB PO SCH (07:59)
[2019-05-24] MEDS: VALSARTAN 80 MG TAB PO SCH (08:00)
[2019-05-24] MEDS: PANTOprazole 40 MG in SYRINGE 0 ML IV SCH (08:01)
[2019-05-24] MEDS: SUCRALFATE 1 GM/10 ML UDC PO SCH ×4 (08:02→20:12)
[2019-05-24 08:50] LABS: Folate (Folic Acid) > 24.00 ng/ml (>5.38); Vitamin B12 620 pg/ml (211-911)
[2019-05-24] MEDS ORDERED: FLUCONAZOLE 100 MG TAB PO SCH (09:00)
--- NOTE | 2019-05-24 09:46 | Gastroenterology Progress Note ---
Date of Service May 24, 2019 Assessment & Plan (1) Blood loss anemia: H/H 8.3/24.5. No gross GI bleeding. EGD indicated gastritis & esophageal candidiasis. -Await results of CT scan to rule out significant GI pathology -Further recommendations pending results of testing -Continue Protonix 40 mg BID Present on Admission?: Yes (2) Esophageal candidiasis: -Patient was given loading dose of Diflucan 400 mg yesterday and will proceed with 200 mg daily x 20 more days Thank you for allowing us to participate in the care of this patient. If you have any further questions or concerns, do not hesitate to contact us at extension [phone] or [phone]. Present on Admission?: Yes Supervising Physician Co-Signing Physician Notes Agree with ASHU Clifton as above Abd: Soft, NT, ND, +BS Continue current therapy Consider CT abd/pelvis later today in or AM if she continues to do well from pulmonary status Subjective Patient is an 89 yo female hospitalized with anemia. She underwent an EGD yesterday that indicated esophageal candidiasis and gastritis. Her H/H today is 8.3/24.5. Her WBC count is 13.96. She denies any new complaints since yesterday. Review of Systems Constitutional: no fever and no chills Respiratory: + cough and + dyspnea Cardiovascular: no chest pain Gastrointestinal: no abdominal pain, no early satiety, no nausea, no vomiting, no coffee ground emesis, no dysphagia, no constipation and no blood in stools Physical Exam Constitutional: WD/WN, vitals as above Eyes: PERRL, conjunctivae normal, anicteric sclerae Respiratory: + labored breathing and + cough Cardiovascular: RRR, no murmur, no edema Gastrointestinal (Abdomen): normal bowel sounds, soft, nontender, no hepatosplenomegaly Results & Data Vital Signs (Past 12 Hours) Vital Signs Temp Pulse Pulse Resp BP Pulse Ox 05/24/19 08:00 96 H 05/24/19 06:50 99 H 16 97 05/24/19 04:00 36.2 C L 89 20 133/56 L 98 05/24/19 01:43 93 H 20 100 05/23/19 23:55 36.7 C 103 H 18 109/50 L 97
[2019-05-24] MEDS ORDERED: FUROSEMIDE 40 MG/4 ML VIAL IV STA (09:51)
[2019-05-24] MEDS ORDERED: SODIUM CHLORIDE 0.9% 250 ML IV PRN (09:51)
[2019-05-24] MEDS ORDERED: FUROSEMIDE 40 MG in SYRINGE 0 ML IV ONE (09:55)
--- NOTE | 2019-05-24 10:21 | Anesthesiology Progress Note ---
Date of Service May 24, 2019 Anesthesia Post Procedure Vital Signs Vital Signs: Temp Pulse Pulse Resp BP Pulse Ox 05/24/19 08:00 96 H 05/24/19 06:50 99 H 16 97 05/24/19 04:00 36.2 C L 89 20 133/56 L 98 05/24/19 01:43 93 H 20 100 05/23/19 23:55 36.7 C 103 H 18 109/50 L 97 05/23/19 19:19 36.5 C 116 H 18 150/61 H 97 05/23/19 19:12 111 H 18 100 05/23/19 18:04 116 H 35 H 100 05/23/19 17:42 118 H 28 H 186/68 H 99 05/23/19 16:37 128 H 30 H 95 05/23/19 16:33 125 H 199/77 H 95 05/23/19 16:09 117 H 230/79 H 90 05/23/19 15:42 36.9 C 89 20 217/71 H 96 05/23/19 11:35 36.6 C 89 17 172/51 H 90 05/23/19 10:53 72 22 152/44 H 98 05/23/19 10:38 72 24 151/49 H 97 05/23/19 10:23 80 24 155/57 H 95 Notes Mental Status: alert / awake / arousable and participated in evaluation Nausea / Vomiting: adequately controlled Pain: adequately controlled Airway Patency, RR, SpO2: stable & adequate BP & HR: stable & adequate Hydration State: stable & adequate
--- NOTE | 2019-05-24 12:47 | Hospitalist Progress Note ---
Date of Service May 24, 2019 Assessment & Plan (1) MARTINEZ (dyspnea on exertion): Ddx includes symptomatic anemia vs. primary pulmonary issue vs. atypical angina. - Getting 2 units of PRBCs today - Will give Lasix to prevent further pulmonary edema that occurred on 05/23 - Will get CT chest & PFTs as able - Will pursue stress if all other issues ruled out (2) GI bleed: EGD on 05/23 showed esophagitis consistent with candidiasis along with gastritis. No overt melena or hematochezia. - GI consulted - Appreciate recs - Consider CT a/p per GI - PPI PO BID - Fluconazole for esophageal candidiasis (3) Left-sided chest pain: Associated with dyspnea on exertion. No acute EKG changes. - Echo on 05/22 showed EF 55-60%. Moderate aortic stenosis. - Appreciate cardiology recs - Do not feel her aortic stenosis is causing her presentation (4) Essential hypertension: BP mildly elevated in the hospital at 170/50. - Continue valsartan and verapamil. - Hold hydrochlorothiazide. - Will not aggressively treat given her aortic stenosis (5) DVT prophylaxis: Avoid heparin and Lovenox. SCDs only. Subjective Still feels shortness of breath, but much improved from yesterday. Is able to sit off of O2 temporarily. Still with watery stools. Review of Systems Review of Systems: All systems reviewed & are unremarkable except as noted in HPI & below Physical Exam Constitutional: WD/WN, vitals as above + acute distress (Breathing hard) Eyes: EOM intact bilaterally; no conjunctival abnormality ENMT: external ear and nose normal, oropharynx normal Neck: trachea midline, no thyromegaly normal visual inspection Respiratory: normal respiratory effort, lungs clear to auscultation no respiratory distress Cardiovascular: RRR, no murmur, no edema Gastrointestinal (Abdomen): Inspection/Auscultation: abdomen normal to inspection; abdomen not distended Musculoskeletal: no cyanosis or clubbing, extremities motor strength 5/5 Skin: no rashes, warm and dry Neurologic: moves all extremities and awake Psychiatric: Orientation: alert, oriented to person and cooperative Results & Data Vital Signs (Past 12 Hours) Vital Signs Temp Pulse Pulse Resp BP BP Pulse Ox 05/24/19 12:26 36.6 C 90 18 136/58 L 92 05/24/19 12:14 36.6 C 95 H 18 135/53 L 96 07/24/19 12:10 36.5 C 90 18 153/53 H 95 05/24/19 11:05 36.5 C 87 18 128/60 95 05/24/19 08:00 96 H 05/24/19 06:50 99 H 16 97 05/24/19 04:00 36.2 C L 89 20 133/56 L 98 05/24/19 01:43 93 H 20 100 PG Care Time/CCT Total # of Minutes Spent Total Time Spent with Patient: Total time spent is greater than 50% in coordination of care (as documented) at patient's floor/unit and/or counseling patient:
--- NOTE | 2019-05-24 15:07 | Cardiology Progress Note ---
Date of Service May 24, 2019 Assessment & Plan (1) MARTINEZ (dyspnea on exertion): Suspect her exertional dyspnea and complaints of angina pectoris are related to her profound anemia. Would treat her with a dose of intravenous furosemide this morning. She may benefit from 2 units of packed red blood cells. Discussed with Dr. Trammell. (2) Aortic stenosis: Her aortic valve was re imaged this morning at the bedside. Peak velocity across the aortic valve is 2.5-3.0 suggesting moderate aortic stenosis. Two dimensional imaging also suggest moderate aortic stenosis. Furthermore, her physical examination would also suggest moderate stenosis. (3) Acute on chronic diastolic CHF (congestive heart failure): Suspect the patient's bout of acute pulmonary edema yesterday was related to intravenous hydration. She responded well to BiPAP and intravenous furosemide. As above, she may benefit from a dose of IV furosemide today. (4) Essential hypertension: Borderline control on her current medical regimen. (5) Hypercholesterolemia: Continue atorvastatin. Subjective The patient is resting comfortably in bed without complaints of chest pain or dyspnea. However, after removing her oxygen this morning, she did note dyspnea and discomfort located in the left clavicular region. Those symptoms resolved when her oxygen was reapplied. Physical Exam Physical Exam: In general is a well-developed well-nourished white female seated at the bedside without complaints. HEENT exam is negative. Neck is supple with full carotid upstrokes. A transmitted murmurs noted bilaterally. Jugular venous pressure is flat at 90 degrees. There is no thyromegaly. Cardiovascular exam reveals a regular rhythm with a 2/6 crescendo decrescendo systolic murmur is heard loudest at the base. S2 is audible at the apex. Lungs are clear without rales, rhonchi or wheezes. Abdomen is soft nontender without bruits. Extremities reveal intact radial artery pulses bilaterally. There is no peripheral edema. Results & Data Vital Signs (Past 12 Hours) Vital Signs Temp Pulse Pulse Resp BP BP Pulse Ox 05/24/19 14:11 36.6 C 90 18 150/61 H 05/24/19 13:18 91 H 16 98 05/24/19 13:11 36.6 C 91 H 18 147/63 H 100 05/24/19 12:41 36.6 C 91 H 18 130/60 94 05/24/19 12:26 36.6 C 90 18 136/58 L 92 05/24/19 12:14 36.6 C 95 H 18 135/53 L 96 05/24/19 12:10 36.5 C 90 18 153/53 H 95 05/24/19 11:05 36.5 C 87 18 128/60 95 05/24/19 08:00 96 H 05/24/19 06:50 99 H 16 97 05/24/19 04:00 36.2 C L 89 20 133/56 L 98 Laboratory Results CBC notes hemoglobin 8.3, hematocrit 24.5, white count of 13.96. Electrolytes notice sodium of 133, potassium 4.2, chloride 100, bicarb 24, BUN 24, creatinine 0.91, glucose of 134. Diagnostic Findings court monitor is benign.
[2019-05-24] MEDS ORDERED: FUROSEMIDE 20 MG in SYRINGE 0 ML IV ONE (15:45)
[2019-05-24] MEDS: PANTOprazole 40 MG TAB PO SCH (20:12)
[2019-05-24] MEDS: VERAPAMIL HCL 120 MG TABCR PO SCH (20:12)
[2019-05-24] MEDS ORDERED: IOVERSOL 100ml IV PRN (21:39)
--- NOTE | 2019-05-24 21:53 | CT Scan Report ---
CT abd pelvis oral and IV con CT DOSE: 539.10 mGy.cm HISTORY: Bleeding GI bleed TECHNIQUE: Multiaxial CT images of the abdomen and pelvis were performed following the use of intrave nous and oral contrast. A dose lowering technique was utilized adhering to the principles of ALARA. COMPARISON STUDY: None. FINDINGS: Bilateral pleural effusions. Bibasilar atelectasis. Mild cirrhotic changes of the liver. No significant upper abdominal varices. The kidneys are negative for hydronephrosis. No significant abd ominal or pelvic ascites. Nonobstructive bowel pattern. No evidence for abnormal mass or collection. Benitez catheter within a collapsed bladder. IMPRESSION: 1. Bilateral pleural effusions with bibasilar atelectasis. 2. Findings of early hepatic cirrhosis. 3. Nonobstructive bowel pattern. 4. No acute process of the abdomen or pelvis. The above report was generated using voice recognition software. It may contain grammatical, syntax or spelling errors. Electronically signed by: Akhil Tran M.D. 05/24/2019 9:51 PM
--- NOTE | 2019-05-24 21:56 | CT Scan Report ---
CT chest wo con CT DOSE: HISTORY: Dyspnea Shortness of breath; told she had lung "scarring" TECHNIQUE: Multiaxial CT images of the chest were performed without contrast. A dose lowering techni que was utilized adhering to the principles of ALARA. COMPARISON: None. FINDINGS: Bilateral pleural effusions. Bilateral lower lobe atelectatic change. Mild emphysematous ch colette. No significant parenchymal mass pathology or nodularity. Calcification of the coronary arterial vasculature. Several indeterminate nodes within the mid mediastinum with the largest precarinal node measuring up to 1.7 cm. IMPRESSION: 1. Bilateral Pleural effusions. 2. Bilateral lower lobe atelectasis. 3. Several indeterminate mediastinal nodes. 4. Mild emphysematous change 5. Considerable degenerative change of the thoracic spine with no acute compression deformity. The above report was generated using voice recognition software. It may contain grammatical, syntax or spelling errors. Electronically signed by: Akhil Tran M.D. 05/24/2019 9:55 PM
[2019-05-25] MEDS: LEVALBUTEROL HCL 0.63 MG/3 ML NEB NEB SCH ×4 (01:42→19:32)
[2019-05-25 06:19] LABS: Hematocrit (blood only) 35.2 % (37-47); Mean Corpuscular Hgb Conc 34.1 g/dL (32-36); Mean Corpuscular Volume 87.6 fL (80-100); Mean Platelet Volume 10.1 fL (7.4-10.4); Platelet Count 318 K/uL (130-400); RDW Coefficient of Variation 14.8 % (11.5-14.5); RDW Standard Deviation 47.2 fL (36.4-46.3); Red Blood Count 4.02 M/uL (4.2-5.4); White Blood Count 18.05 K/uL (4.8-10.8)
[2019-05-25 06:55] LABS: BUN Creatinine Ratio 29.7 (10-20); Calcium 8.6 mg/dl (8.5-10.1); Creatinine Clr Calc Pharmacy 35.5 ml/min; Est GFR (African American) 74.6; Est GFR (Non-African American) 64.4; Magnesium 1.9 mg/dl (1.8-2.4); Potassium 3.6 mmol/L (3.5-5.1)
[2019-05-25] MEDS ORDERED: FUROSEMIDE 40 MG/4 ML VIAL IV STA (08:07)
[2019-05-25] MEDS ORDERED: LORazepam 0.5 MG TAB PO STA (08:07)
[2019-05-25] MEDS ORDERED: FUROSEMIDE 40 MG in SYRINGE 0 ML IV ONE (08:30)
[2019-05-25] MEDS: PANTOprazole 40 MG TAB PO SCH ×2 (08:44→20:40)
[2019-05-25] MEDS: FLUCONAZOLE 100 MG TAB PO SCH (08:44)
[2019-05-25] MEDS: MULTIVITAMIN TAB PO SCH (08:44)
[2019-05-25] MEDS: VALSARTAN 80 MG TAB PO SCH (08:44)
[2019-05-25] MEDS: SUCRALFATE 1 GM/10 ML UDC PO SCH ×4 (08:44→20:40)
--- NOTE | 2019-05-25 13:20 | Cardiology Progress Note ---
Date of Service May 25, 2019 Assessment & Plan (1) MARTINEZ (dyspnea on exertion): Suspect her dyspnea is related to iatrogenic CHF. Agree with intravenous furosemide this morning. Could repeated dose this afternoon if necessary. She is at risk because of her known left ventricular hypertrophy and diastolic dysfunction. (2) Aortic stenosis: Her aortic valve was re imaged yesterday and suggested moderate aortic stenosis. Physical examination confirms the same. (3) Acute on chronic diastolic CHF (congestive heart failure): As above, she is likely experiencing iatrogenic CHF. Agree with diuresis. (4) Essential hypertension: Borderline control on her current medical regimen. (5) Hypercholesterolemia: Continue atorvastatin. Subjective The patient did experience anxiety overnight. She currently notes some shortness of breath rest. Denies chest discomfort. Physical Exam Physical Exam: In general is a well-developed well-nourished white female seated at the bedside without complaints. HEENT exam is negative. Neck is supple with full carotid upstrokes. A transmitted murmurs noted bilaterally. Jugular venous pressure is 8 cm of water at 90 degrees. There is no thyromegaly. Cardiovascular exam reveals a regular rhythm with a 2/6 crescendo decrescendo systolic murmur is heard loudest at the base. S2 is audible at the apex. Lungs note by basal rales. Abdomen is soft nontender without bruits. Extremities reveal intact radial artery pulses bilaterally. There is no peripheral edema. Results & Data Vital Signs (Past 12 Hours) Vital Signs Temp Pulse Resp BP Pulse Ox 05/25/19 11:25 36.5 C 96 H 18 159/62 H 96 05/25/19 07:10 36.6 C 100 H 19 165/72 H 95 05/25/19 07:09 100 H 20 95 05/25/19 04:00 36.4 C L 98 H 19 156/66 H 93 05/25/19 01:43 80 21 92 Laboratory Results CBC is hemoglobin 12.0 and hematocrit 35.2. Diagnostic Findings Time to monitor is benign.
--- NOTE | 2019-05-25 14:11 | Hospitalist Progress Note ---
Date of Service May 25, 2019 Assessment & Plan (1) MARTINEZ (dyspnea on exertion): Ddx includes symptomatic anemia vs. primary pulmonary issue vs. atypical angina. CT chest on 05/24 showed mild emphysematous changes. - Got 2 units of PRBCs on 05/24 - Hgb was 12.0 on 05/25 - At baseline - Got Lasix yesterday & another dose today. Possible third dose. Discussed with cardiology today. - Cardiology feels this is iatrogenic edema; not CHF. - Will pursue stress if all other issues ruled out (2) GI bleed: EGD on 05/23 showed esophagitis consistent with candidiasis along with gastritis. No overt melena or hematochezia. CT a/p on 05/24 did not show any mass or concerning findings related to bleeding. - GI consulted - Appreciate recs - PPI PO BID - Fluconazole for esophageal candidiasis (3) Left-sided chest pain: Associated with dyspnea on exertion. No acute EKG changes. - Echo on 05/22 showed EF 55-60%. Moderate aortic stenosis. - Appreciate cardiology recs - Do not feel her aortic stenosis is causing her presentation (4) Essential hypertension: BP mildly elevated in the hospital at 170/50. - Continue valsartan and verapamil. - Hold hydrochlorothiazide. - Will not aggressively treat given her aortic stenosis (5) DVT prophylaxis: Avoid heparin and Lovenox. SCDs only. Subjective More shortness of breath this morning. Hgb is better. Very high anxiety due to her shortness of breath. Review of Systems Review of Systems: All systems reviewed & are unremarkable except as noted in HPI & below Physical Exam Constitutional: WD/WN, vitals as above + acute distress (Breathing hard) Eyes: EOM intact bilaterally; no conjunctival abnormality ENMT: external ear and nose normal, oropharynx normal Neck: trachea midline, no thyromegaly normal visual inspection Respiratory: normal respiratory effort, lungs clear to auscultation no respiratory distress Cardiovascular: RRR, no murmur, no edema Gastrointestinal (Abdomen): Inspection/Auscultation: abdomen normal to inspection; abdomen not distended Musculoskeletal: no cyanosis or clubbing, extremities motor strength 5/5 Skin: no rashes, warm and dry Neurologic: moves all extremities and awake Psychiatric: Orientation: alert, oriented to person and cooperative Results & Data Vital Signs (Past 12 Hours) Vital Signs Temp Pulse Resp BP Pulse Ox 07/25/19 11:25 36.5 C 96 H 18 159/62 H 96 05/25/19 07:10 36.6 C 100 H 19 165/72 H 95 05/25/19 07:09 100 H 20 95 05/25/19 04:00 36.4 C L 98 H 19 156/66 H 93 PG Care Time/CCT Total # of Minutes Spent Total Time Spent with Patient: Total time spent is greater than 50% in coordination of care (as documented) at patient's floor/unit and/or counseling patient:
[2019-05-25] MEDS: ATORVASTATIN 40 MG TAB PO SCH (20:40)
[2019-05-25] MEDS: VERAPAMIL HCL 120 MG TABCR PO SCH (20:40)
[2019-05-26] MEDS: LEVALBUTEROL HCL 0.63 MG/3 ML NEB NEB SCH ×4 (02:41→19:52)
[2019-05-26 06:06] LABS: Hematocrit (blood only) 33.6 % (37-47); Hemoglobin 11.5 g/dL (12.0-16.0); Mean Corpuscular Hgb Conc 34.2 g/dL (32-36); Mean Corpuscular Volume 88.9 fL (80-100); Mean Platelet Volume 10.2 fL (7.4-10.4); Platelet Count 332 K/uL (130-400); Potassium 3.4 mmol/L (3.5-5.1); RDW Coefficient of Variation 14.6 % (11.5-14.5); RDW Standard Deviation 48.1 fL (36.4-46.3); Red Blood Count 3.78 M/uL (4.2-5.4); White Blood Count 16.19 K/uL (4.8-10.8)
[2019-05-26 06:07] LABS: BUN Creatinine Ratio 33.7 (10-20); Calcium 8.1 mg/dl (8.5-10.1); Est GFR (African American) 86.1; Est GFR (Non-African American) 74.3; Magnesium 1.8 mg/dl (1.8-2.4)
--- NOTE | 2019-05-26 09:03 | XRay Report ---
XR chest 2V routine HISTORY: Elevated procalcitonin; shortness of breath COMPARISON: Chest CT 05/24/2019. FINDINGS: No pneumothorax. Small bilateral pleural effusions and bibasilar densities persist. The pul monary edema has almost completely resolved. The heart remains mildly enlarged. Emphysema. IMPRESSION: 1. Near-complete resolution of the pulmonary edema. 2. Small bilateral pleural effusions and bibasilar densities persist. Electronically signed by: Tarun Hinojosa M.D. 05/26/2019 9:01 AM
[2019-05-26] MEDS ORDERED: FUROSEMIDE 40 MG/4 ML VIAL IV STA (09:25)
[2019-05-26] MEDS: SUCRALFATE 1 GM/10 ML UDC PO SCH ×4 (09:46→19:50)
[2019-05-26] MEDS: VALSARTAN 80 MG TAB PO SCH (09:52)
[2019-05-26] MEDS: MULTIVITAMIN TAB PO SCH (09:53)
[2019-05-26] MEDS: FLUCONAZOLE 100 MG TAB PO SCH (09:53)
[2019-05-26] MEDS: PANTOprazole 40 MG TAB PO SCH ×2 (09:53→19:50)
--- NOTE | 2019-05-26 11:44 | Cardiology Progress Note ---
Date of Service May 26, 2019 Assessment & Plan (1) MARTINEZ (dyspnea on exertion): Dyspnea likely secondary to iatrogenic CHF. Agree with intravenous furosemide this morning. She is at due to her left ventricular hypertrophy and diastolic dysfunction. (2) Aortic stenosis: Her aortic valve stenosis is moderate in degree. We will perform yearly surveillance echocardiograms. (3) Acute on chronic diastolic CHF (congestive heart failure): She is likely experiencing iatrogenic CHF. Agree with diuresis. (4) Essential hypertension: Adequate control on her current medical regimen. (5) Hypercholesterolemia: Continue atorvastatin. Subjective She currently notes some mild shortness of breath at rest and anxiety on in her chest. Denies chest discomfort. Physical Exam Physical Exam: In general is a well-developed well-nourished white female seated at the bedside without complaints. HEENT exam is negative. Neck is supple with full carotid upstrokes. A transmitted murmur is noted bilaterally. Jugular venous pressure is 8 cm of water at 90 degrees. There is no thyromegaly. Cardiovascular exam reveals a regular rhythm with a 2/6 crescendo decrescendo systolic murmur is heard loudest at the base. S2 is audible at the apex. Lungs are clear without rales, rhonchi, wheezes. Abdomen is soft nontender without bruits. Extremities reveal intact radial artery pulses b ilaterally. There is no peripheral edema. Results & Data Vital Signs (Past 12 Hours) Vital Signs Temp Pulse Pulse Resp BP BP Pulse Ox 05/26/19 11:24 36.7 C 61 18 95/64 L 93 05/26/19 11:20 05/26/19 11:00 36.7 C 86 20 127/50 L 94 05/26/19 09:30 78 05/26/19 07:59 36.7 C 78 18 119/65 96 05/26/19 07:17 77 18 98 05/26/19 03:34 37.5 C 107 H 23 150/61 H 91 05/26/19 02:41 87 16 95 Pulse Ox 05/26/19 11:24 05/26/19 11:20 93 05/26/19 11:00 05/26/19 09:30 05/26/19 07:59 05/26/19 07:17 05/26/19 03:34 05/26/19 02:41 Laboratory Results CBC notes hemoglobin of 11.5, hematocrit of 33.6, white count 16.1, platelet count of [id number]. Electrolytes notice sodium of 129, potassium 3.4, chloride 95, bicarb 25, BUN 24, creatinine 0.72, glucose of 118. Diagnostic Findings dog barber is benign.
--- NOTE | 2019-05-26 16:42 | Hospitalist Progress Note ---
Date of Service May 26, 2019 Assessment & Plan (1) MARTINEZ (dyspnea on exertion): Ddx includes symptomatic anemia vs. primary pulmonary issue vs. atypical angina. CT chest on 05/24 showed mild emphysematous changes. - Got 2 units of PRBCs on 05/24 - Hgb was 12.0 on 05/25 - At baseline - Got Lasix on 05/24, , and . Discussed with cardiology today. - Cardiology feels this is iatrogenic edema; not CHF. - Will pursue stress if all other issues ruled out (2) GI bleed: EGD on 05/23 showed esophagitis consistent with candidiasis along with gastritis. No overt melena or hematochezia. CT a/p on 05/24 did not show any mass or concerning findings related to bleeding. - GI consulted - Appreciate recs - PPI PO BID - Fluconazole for esophageal candidiasis (3) Left-sided chest pain: Associated with dyspnea on exertion. No acute EKG changes. - Echo on 05/22 showed EF 55-60%. Moderate aortic stenosis. - Appreciate cardiology recs - Do not feel her aortic stenosis is causing her presentation (4) Essential hypertension: BP mildly elevated in the hospital at 170/50. - Continue valsartan and verapamil. - Hold hydrochlorothiazide. - Will not aggressively treat given her aortic stenosis (5) DVT prophylaxis: Avoid heparin and Lovenox. SCDs only. Subjective Now with a cough. Somewhat better than when she arrived from a shortness of breath standpoint. Review of Systems Review of Systems: All systems reviewed & are unremarkable except as noted in HPI & below Physical Exam Constitutional: WD/WN, vitals as above + acute distress (Breathing hard) Eyes: EOM intact bilaterally; no conjunctival abnormality ENMT: external ear and nose normal, oropharynx normal Neck: trachea midline, no thyromegaly normal visual inspection Respiratory: normal respiratory effort, lungs clear to auscultation no respiratory distress Cardiovascular: RRR, no murmur, no edema Gastrointestinal (Abdomen): Inspection/Auscultation: abdomen normal to inspection; abdomen not distended Musculoskeletal: no cyanosis or clubbing, extremities motor strength 5/5 Skin: no rashes, warm and dry Neurologic: moves all extremities and awake Psychiatric: Orientation: alert, oriented to person and cooperative Results & Data Vital Signs (Past 12 Hours) Vital Signs Temp Pulse Pulse Resp BP BP Pulse Ox 05/26/19 15:21 97 05/26/19 15:06 36.8 C 102 H 18 134/69 96 05/26/19 15:00 88 05/26/19 13:56 108 H 18 95 05/26/19 11:24 36.7 C 61 18 95/64 L 93 05/26/19 11:20 05/26/19 11:00 36.7 C 86 20 127/50 L 94 05/26/19 09:30 78 05/26/19 07:59 36.7 C 78 18 119/65 96 05/26/19 07:17 77 18 98 Pulse Ox 05/26/19 15:21 05/26/19 15:06 05/26/19 15:00 05/26/19 13:56 05/26/19 11:24 05/26/19 11:20 93 05/26/19 11:00 05/26/19 09:30 05/26/19 07:59 05/26/19 07:17 PG Care Time/CCT Total # of Minutes Spent Total Time Spent with Patient: Total time spent is greater than 50% in coordination of care (as documented) at patient's floor/unit and/or counseling patient:
--- NOTE | 2019-05-26 16:53 | Pulmonology Progress Note ---
Date of Service May 26, 2019 Assessment & Plan (1) Acute on chronic diastolic CHF (congestive heart failure): The patient has improved significantly. Currently she is on no oxygen and is oxygenating in mid to high 90s. She has been diuresing well with the Lasix which was prescribed. Overall she is doing much better. (2) Esophageal candidiasis: Currently she is on Diflucan which will be continued. (3) Pulmonary edema cardiac cause: The patient is being diuresed with Lasix which will be also continued. (4) Aortic stenosis: Overall remains stable. (5) DNR (do not resuscitate): The patient is DNR. Subjective Son is by the bedside The patient was seen and examined by me. Currently she is resting comfortably she is sitting in the bed not in any acute distress. She is on room air and oxygenating in mid to high 90s. She has got a dry cough. The patient denies having any shortness of breath wheezing orthopnea paroxysmal nocturnal dyspnea. She has cough which is all dry. Denies having any chest pain or palpitations. Also denies having any fever chills or hemoptysis. Does not have any abdominal pain no nausea no vomiting. The patient also denies having any diarrhea or painful micturition or blood in the stool or urine. Review of Systems Review of Systems: Total 12 systems reviewed and they are negative except mentioned as above in history. Physical Exam Physical Exam: Elderly female remains in the bed not any acute distress. Currently she is on room air and oxygenating in mid to high 90s and not in any acute distress. HEENT: The pupils are reactive to light. Unable to examine oral cavity because she is on a BiPAP at this time. Neck:Supple, No JVD or cervical or supraclavicular adenopathy. Chest: Bilaterally coarse breathing, much improved breath sounds no wheezing no rhonchi heard. She has got some crackles at the bases posteriorly. Heart: S1-S2 heard. Regular rate and rhythm. No murmur or rubs or gallops appreciated. GI: Abdomen is soft nontender, bowel sounds are positive. No mass felt. Extremities: Bilateral no edema. Nontender calf muscles. No clubbing seen. Neuro: The patient is alert, awake and follows simple commands and is moving all her extremities. No neurological deficit at this time. Skin: No rash no lesion. Results & Data Vital Signs (Past 12 Hours) Vital Signs Temp Pulse Pulse Resp BP BP Pulse Ox 05/26/19 15:21 97 05/26/19 15:06 36.8 C 102 H 18 134/69 96 05/26/19 15:00 88 05/26/19 13:56 108 H 18 95 05/26/19 11:24 36.7 C 61 18 95/64 L 93 05/26/19 11:20 05/26/19 11:00 36.7 C 86 20 127/50 L 94 05/26/19 09:30 78 05/26/19 07:59 36.7 C 78 18 119/65 96 05/26/19 07:17 77 18 98 Pulse Ox 05/26/19 15:21 05/26/19 15:06 05/26/19 15:00 05/26/19 13:56 05/26/19 11:24 05/26/19 11:20 93 05/26/19 11:00 05/26/19 09:30 05/26/19 07:59 05/26/19 07:17 Laboratory Results 05/26/19 05:24 05/26/19 05:24 Diagnostic Findings XR chest 2V routine HISTORY: Elevated procalcitonin; shortness of breath COMPARISON: Chest CT 05/24/2019. FINDINGS: No pneumothorax. Small bilateral pleural effusions and bibasilar densities persist. The pulmonary edema has almost completely resolved. The heart remains mildly enlarged. Emphysema. IMPRESSION: 1. Near-complete resolution of the pulmonary edema. 2. Small bilateral pleural effusions and bibasilar densities persist. Electronically signed by: Tarun Hinojosa M.D. 05/26/2019 9:01 AM Medications Administered Current Inpatient Medications Acetaminophen (Tylenol) 650 mg PO Q4H PRN PRN Reason: Pain or Fever Stop: 06/21/19 13:29 Al Hydrox/Mg Hydrox/Simethicone (Maalox) 15 ml PO Q4H PRN PRN Reason: Dyspepsia Stop: 06/21/19 13:29 Atorvastatin Calcium (Lipitor) 40 mg PO HS [facility] Stop: 06/21/19 20:59 Last Admin: 05/25/19 20:40 Dose: 40 mg Documented by: Benzonatate (Tessalon Perle) 100 mg PO TID PRN PRN Reason: Cough Stop: 06/25/19 16:37 Cetirizine HCl (Zyrtec) 10 mg PO DAILY PRN PRN Reason: Allergy Symptoms Stop: 06/21/19 13:29 Diphenhydramine HCl (Benadryl Capsule) 25 mg PO HSZ PRN PRN Reason: Anxiety/Insomnia Stop: 06/24/19 02:15 Last Admin: 05/25/19 02:24 Dose: 25 mg Documented by: Fluconazole (Diflucan) 100 mg PO [facility]; Protocol Stop: 06/12/19 08:59 Last Admin: 05/26/19 09:53 Dose: 100 mg Documented by: Guaifenesin (Robitussin Sugar Free Syrup) 100 mg PO Q6H PRN PRN Reason: Cough Stop: 06/25/19 16:37 Ioversol (Optiray 320 100ml) 90 ml IV ONCE PRN PRN Reason: Interaction Checking Stop: 05/28/19 21:38 Last Admin: 05/24/19 21:40 Dose: 90 ml Documented by: Levalbuterol HCl (Xopenex 0.63 Mg/3 Ml Neb) 0.63 mg NEB Q6R [facility] Stop: 06/22/19 19:59 Last Admin: 05/26/19 13:55 Dose: 0.63 mg Documented by: Multivitamins (Multivitamin Tab) 1 tab PO [facility] Stop: 06/22/19 08:59 Last Admin: 05/26/19 09:53 Dose: 1 tab Documented by: Nitroglycerin (Nitrostat) 0.4 mg SL UD PRN PRN Reason: Chest Pain Stop: 06/21/19 13:29 Ondansetron HCl (Zofran) 4 mg IV Q6H PRN PRN Reason: Nausea Stop: 06/21/19 13:29 Pantoprazole Sodium (Protonix) 40 mg PO BID [facility] Stop: 06/23/19 20:59 Last Admin: 05/26/19 09:53 Dose: 40 mg Documented by: Sucralfate (Carafate) 1 gm PO [facility] Stop: 06/21/19 20:59 Last Admin: 05/26/19 16:38 Dose: 1 gm Documented by: Valsartan (Diovan) 320 mg PO [facility] Stop: 06/22/19 08:59 Last Admin: 05/26/19 09:52 Dose: 320 mg Documented by: Verapamil HCl (Calan Sr) 120 mg PO HS [facility] Stop: 06/21/19 20:59 Last Admin: 05/25/19 20:40 Dose: 120 mg Documented by: PG Care Time/CCT Total # of Minutes Spent Total Time Spent with Patient: Total time spent is greater than 50% in coordination of care (as documented) at patient's floor/unit and/or counseling patient:
[2019-05-26] MEDS: BENZONATATE 100 MG CAPSULE PO PRN ×2 (17:36→19:54)
[2019-05-26 18:36] LABS: D Dimer 3280 ug/L FEU (0-500)
[2019-05-26] MEDS: ATORVASTATIN 40 MG TAB PO SCH (19:50)
[2019-05-26] MEDS: VERAPAMIL HCL 120 MG TABCR PO SCH (19:51)
[2019-05-27] MEDS ORDERED: LORazepam 0.5 MG TAB PO PRN (01:26)
[2019-05-27] MEDS: LEVALBUTEROL HCL 0.63 MG/3 ML NEB NEB SCH ×4 (02:02→19:08)
[2019-05-27 06:25] LABS: Hematocrit (blood only) 35.3 % (37-47); Hemoglobin 12.1 g/dL (12.0-16.0); Mean Corpuscular Hgb Conc 34.3 g/dL (32-36); Mean Corpuscular Volume 89.4 fL (80-100); Platelet Count 319 K/uL (130-400); RDW Coefficient of Variation 14.5 % (11.5-14.5); Red Blood Count 3.95 M/uL (4.2-5.4); White Blood Count 15.53 K/uL (4.8-10.8)
[2019-05-27 06:53] LABS: BUN Creatinine Ratio 32.8 (10-20); Calcium 8.6 mg/dl (8.5-10.1); Creatinine Clr Calc Pharmacy 35.5 ml/min; Est GFR (African American) 74.6; Est GFR (Non-African American) 64.4; Magnesium 1.9 mg/dl (1.8-2.4); Potassium 3.8 mmol/L (3.5-5.1)
[2019-05-27] MEDS: FLUCONAZOLE 100 MG TAB PO SCH (07:47)
[2019-05-27] MEDS: MULTIVITAMIN TAB PO SCH (07:47)
[2019-05-27] MEDS: PANTOprazole 40 MG TAB PO SCH ×2 (07:47→21:37)
[2019-05-27] MEDS: SUCRALFATE 1 GM/10 ML UDC PO SCH ×4 (07:47→21:37)
[2019-05-27] MEDS: VALSARTAN 80 MG TAB PO SCH (07:47)
[2019-05-27] MEDS: guaiFENesin SUGAR FREE 100 MG/5 ML UDC PO PRN (07:49)
[2019-05-27] MEDS: ONDANSETRON INJ 2 MG/ML 2 ML VIAL IV PRN (10:42)
[2019-05-27] MEDS ORDERED: OPTIRAY 320 125ml IV PRN (10:53)
--- NOTE | 2019-05-27 11:18 | CT Scan Report ---
CT ANGIOGRAM OF THE CHEST CLINICAL HISTORY: Dyspnea. COMPARISON STUDY: Chest x-ray dated 05/26/2019. Chest CT dated 05/24/2019. TECHNIQUE: Following the IV administration of 119 cc of Optiray 320, CT angiogram of the chest was pe rformed from the upper abdomen to the thoracic inlet utilizing the pulmonary embolus protocol. Images are reviewed in the axial, sagittal, and coronal planes. 3-D MIPS images are created and assessed. I V contrast was administered without complication. A dose lowering technique was utilized adhering to the principles of ALARA. CT DOSE: 216.72 mGy.cm FINDINGS: Thyroid: Imaged portions of the thyroid gland are normal in size and heterogeneous in attenuation. Thoracic aorta: There is advanced atherosclerotic calcification of the thoracic aorta, which is pedrito l in caliber and demonstrates standard 3-vessel arch anatomy. The thoracic aorta is not well opacifie d. Pulmonary vasculature: The main pulmonary arteries are dilated suggesting pulmonary artery hypertensi on. There are no filling defects identified in main, lobar, or segmental pulmonary branches to sugges t pulmonary embolus. Heart: The heart is enlarged and without pericardial effusion. The coronary arteries are densely calc ified. Lungs and pleural spaces: Evaluation of the lung parenchyma is degraded by motion artifact. Diffuse i ntralobular septal thickening with associated peribronchial thickening is consistent with congestive failure. There are moderate pleural effusions with associated atelectasis. There is an unchanged 4 mm right apical pulmonary nodule seen on image #207. The trachea and central airways are clear. Mediastinum: There are numerous mildly enlarged mediastinal lymph nodes. A precarinal node measures 1 2 mm short axis. An enlarged subcarinal node measures 4.5 x 2.4 cm. Arianna: There are prominent hilar nodes. Axillae: There is no axillary lymphadenopathy. Upper abdomen: Partially visualized upper abdominal viscera is grossly unremarkable. Skeletal structures: The skeletal structures are osteopenic. Advanced degenerative change and hyperky phosis are noted throughout the thoracic spine. Advanced arthritic change is also noted in the should ers. No lytic or blastic bony lesions are seen. IMPRESSION: 1. Motion degraded examination. 2. There is no evidence of pulmonary embolus in the main, lobar, or segmental pulmonary arteries. 3. Cardiomegaly with evidence of congestive failure. 4. There are moderate pleural effusions with associated atelectasis. 5. Mildly enlarged mediastinal lymph nodes are nonspecific. 6. Additional findings as above. Electronically signed by: Jefe High M.D. 05/27/2019 11:16 AM
--- NOTE | 2019-05-27 11:28 | Ultrasound Report ---
ULTRASOUND BILATERAL LOWER EXTREMITY VENOUS CLINICAL HISTORY: Elevated D dimer. COMPARISON STUDY: No priors. TECHNIQUE: Real-time, grayscale, and color Doppler sonography of the deep veins of the right and left lower extremity was performed from the inguinal crease to the calf. Compression and augmentation wer e utilized. FINDINGS: There is no sonographic evidence of deep venous thrombosis identified in the right or left lower extremity. The common femoral, superficial femoral, and popliteal veins are patent and normally compressible bilaterally. The greater saphenous vein and the profunda femoris vein at the junction w ith the common femoral vein are clear in both legs. The visualized calf veins are patent bilaterally. IMPRESSION: There is no sonographic evidence of deep venous thrombosis identified in the right or lef t lower extremity. Electronically signed by: Jefe High M.D. 05/27/2019 11:27 AM
[2019-05-27] MEDS ORDERED: FUROSEMIDE 40 MG/4 ML VIAL IV STA (11:35)
[2019-05-27] MEDS ORDERED: LORazepam 0.5 MG TAB PO STA (14:03)
--- NOTE | 2019-05-27 17:09 | Hospitalist Progress Note ---
Date of Service May 27, 2019 Assessment & Plan (1) MARTINEZ (dyspnea on exertion): Ddx includes symptomatic anemia vs. primary pulmonary issue vs. atypical angina. CT chest on 05/24 showed mild emphysematous changes. Repeat CTA on 05/27 showed volume overload. - Got 2 units of PRBCs on 05/24 - Hgb was 12.0 on 05/25 - At baseline - Got Lasix on 05/24 - 05/27. Discussed with cardiology today. - Concern for CHF as she is mostly volume even at this point during admission, and her symptoms usually kick in with lying flat. Some concern for atypical angina as well given that when she has stress, she immediately has more shortness of breath. - Elevated troponin on 05/27 in the setting of worsening shortness of breath and tachypnea & tachycardia. - Plan for nuclear stress on Wednesday. (2) GI bleed: EGD on 05/23 showed esophagitis consistent with candidiasis along with gastritis. No overt melena or hematochezia. CT a/p on 05/24 did not show any mass or concerning findings related to bleeding. - GI consulted - Appreciate recs - PPI PO BID - Fluconazole for esophageal candidiasis (3) Left-sided chest pain: Associated with dyspnea on exertion. No acute EKG changes. - Echo on 05/22 showed EF 55-60%. Moderate aortic stenosis. - Appreciate cardiology recs - Do not feel her aortic stenosis is causing her presentation (4) Essential hypertension: BP mildly elevated in the hospital at 170/50. - Continue valsartan and verapamil. - Hold hydrochlorothiazide while giving Lasix (5) DVT prophylaxis: Avoid heparin and Lovenox. SCDs only. Subjective Initial visit this morning she was mildly short of breath. On repeat visit, she was more-so, but had improved after a third visit on biPap. Review of Systems Review of Systems: All systems reviewed & are unremarkable except as noted in HPI & below Physical Exam Constitutional: WD/WN, vitals as above + acute distress (Breathing hard) Eyes: EOM intact bilaterally; no conjunctival abnormality ENMT: external ear and nose normal, oropharynx normal Neck: trachea midline, no thyromegaly normal visual inspection Respiratory: normal respiratory effort, lungs clear to auscultation no respiratory distress Cardiovascular: RRR, no murmur, no edema Gastrointestinal (Abdomen): Inspection/Auscultation: abdomen normal to inspection; abdomen not distended Musculoskeletal: no cyanosis or clubbing, extremities motor strength 5/5 Skin: no rashes, warm and dry Neurologic: moves all extremities and awake Psychiatric: Orientation: alert, oriented to person and cooperative Results & Data Vital Signs (Past 12 Hours) Vital Signs Temp Pulse Pulse Resp BP Pulse Ox 05/27/19 15:03 37.0 C 89 22 128/63 100 05/27/19 14:30 81 20 94 05/27/19 14:04 76 16 95 05/27/19 11:58 106 H 32 H 97 05/27/19 07:49 80 05/27/19 07:28 74 16 97 05/27/19 07:23 36.5 C 94 H 20 147/71 H 94 PG Care Time/CCT Total # of Minutes Spent Total Time Spent with Patient: Total time spent is greater than 50% in coordination of care (as documented) at patient's floor/unit and/or counseling patient: 40
--- NOTE | 2019-05-27 17:15 | Pulmonology Progress Note ---
Date of Service May 27, 2019 Assessment & Plan (1) Acute on chronic diastolic CHF (congestive heart failure): The patient was on BiPAP throughout the day. She also received Lasix and she is putting out good urine. Currently she is comfortable and breathing on oxygen mask. The patient has acute on chronic respiratory failure secondary to congestive heart failure. (2) Pulmonary edema cardiac cause: She has been given Lasix and she was also on BiPAP and seems to be doing better. (3) Aortic stenosis: Overall remains stable. (4) DNR (do not resuscitate): The patient is DNR. (5) Essential hypertension: We are going to continue with current blood pressure medications. (6) Upper gastrointestinal bleed: There is no more GI bleed. She was also transfused before but it has been stabilized. Subjective The patient was seen and examined by me. This morning the patient deteriorated further, was very short of breath and also hypoxemic and she was started on BiPAP with significant improvement. Currently she is on oxygen mask and she denies having any shortness of breath or chest pain or tightness in her chest. She is also oxygenating around 94 to 96% on current O2 via the oxygen mask. She was just taken off from the BiPAP and she seems to be comfortable and denies any distress. Also denies having any chest pain. Also denies having any abdominal pain, nausea, vomiting. She feels very weak. The patient also has some dry cough. Review of Systems Review of Systems: Total 12 systems reviewed and they are negative except mentioned as above in history. Physical Exam 2 Physical Exam: Elderly female remains in the bed not any acute distress. Currently she is oxygen mask and oxygenating around 94 to 95%. She was on BiPAP in the morning and during the day. HEENT: The pupils are reactive to light. Oral cavity is little bit dry but no lesions. Neck:Supple, No JVD or cervical or supraclavicular adenopathy. Chest: Bilaterally coarse breathing, much improved breath sounds no wheezing no rhonchi heard. She has got some crackles at the bases posteriorly. Heart: S1-S2 heard. Regular rate and rhythm. No murmur or rubs or gallops appreciated. GI: Abdomen is soft nontender, bowel sounds are positive. No mass felt. Extremities: Bilateral no edema. Nontender calf muscles. No clubbing seen. Neuro: The patient is alert, awake and follows simple commands and is moving all her extremities. No neurological deficit at this time. Skin: No rash no lesion. Results & Data Vital Signs (Past 12 Hours) Vital Signs Temp Pulse Pulse Resp BP Pulse Ox 05/27/19 15:03 37.0 C 89 22 128/63 100 05/27/19 14:30 81 20 94 05/27/19 14:04 76 16 95 05/27/19 11:58 106 H 32 H 97 05/27/19 07:49 80 05/27/19 07:28 74 16 97 05/27/19 07:23 36.5 C 94 H 20 147/71 H 94 Laboratory Results 05/27/19 05:52 05/27/19 05:52 proBNP is 17,211 which is come down from yesterday which was 26,019. Her magnesium is 1.9 today Diagnostic Findings ULTRASOUND BILATERAL LOWER EXTREMITY VENOUS CLINICAL HISTORY: Elevated D dimer. COMPARISON STUDY: No priors. TECHNIQUE: Real-time, grayscale, and color Doppler sonography of the deep veins of the right and left lower extremity was performed from the inguinal crease to the calf. Compression and augmentation were utilized. FINDINGS: There is no sonographic evidence of deep venous thrombosis identified in the right or left lower extremity. The common femoral, superficial femoral, and popliteal veins are patent and normally compressible bilaterally. The greater saphenous vein and the profunda femoris vein at the junction with the common femoral vein are clear in both legs. The visualized calf veins are patent bilaterally. IMPRESSION: There is no sonographic evidence of deep venous thrombosis identified in the right or left lower extremity. Electronically signed by: Jefe High M.D. 05/27/2019 11:[address] angiogram of the chest.IMPRESSION: 1. Motion degraded examination. 2. There is no evidence of pulmonary embolus in the main, lobar, or segmental pulmonary arteries. 3. Cardiomegaly with evidence of congestive failure. 4. There are moderate pleural effusions with associated atelectasis. 5. Mildly enlarged mediastinal lymph nodes are nonspecific. 6. Additional findings as above. Electronically signed by: Jefe Hihg M.D. 05/27/2019 11:16 AM PG Care Time/CCT Total # of Minutes Spent Total Time Spent with Patient: Total time spent is greater than 50% in coordination of care (as documented) at patient's floor/unit and/or counseling patient:
[2019-05-27] MEDS ORDERED: FUROSEMIDE 40 MG in SYRINGE 0 ML IV ONE (17:30)
[2019-05-27] MEDS ORDERED: NITROGLYCERIN 0.3 MG/HR PATCH TD SCH (19:15)
[2019-05-27] MEDS ORDERED: NITROGLYCERIN 0.1 MG/HR PATCH TD SCH ×2 (20:00)
[2019-05-27] MEDS: VERAPAMIL HCL 120 MG TABCR PO SCH (21:37)
[2019-05-27] MEDS: ATORVASTATIN 40 MG TAB PO SCH (21:37)
[2019-05-27] MEDS: NITROGLYCERIN 0.2 MG/HR PATCH TD SCH (21:38)
[2019-05-28] MEDS: LEVALBUTEROL HCL 0.63 MG/3 ML NEB NEB SCH ×4 (01:53→19:11)
[2019-05-28 03:47] LABS: Hematocrit (blood only) 33.4 % (37-47); Hemoglobin 11.1 g/dL (12.0-16.0); Mean Corpuscular Hgb Conc 33.2 g/dL (32-36); Mean Platelet Volume 9.6 fL (7.4-10.4); Platelet Count 285 K/uL (130-400); RDW Coefficient of Variation 14.5 % (11.5-14.5); RDW Standard Deviation 48.2 fL (36.4-46.3); Red Blood Count 3.71 M/uL (4.2-5.4); White Blood Count 15.13 K/uL (4.8-10.8)
[2019-05-28 04:04] LABS: BUN Creatinine Ratio 25.4 (10-20); Calcium 8.2 mg/dl (8.5-10.1); Est GFR (African American) 46.4; Magnesium 1.9 mg/dl (1.8-2.4); Potassium 3.8 mmol/L (3.5-5.1)
[2019-05-28] MEDS: PANTOprazole 40 MG TAB PO SCH ×2 (08:03→20:23)
[2019-05-28] MEDS: VALSARTAN 80 MG TAB PO SCH (08:04)
[2019-05-28] MEDS: MULTIVITAMIN TAB PO SCH (08:04)
[2019-05-28] MEDS: SUCRALFATE 1 GM/10 ML UDC PO SCH ×4 (08:04→20:23)
[2019-05-28] MEDS: FLUCONAZOLE 100 MG TAB PO SCH (08:04)
[2019-05-28] MEDS: guaiFENesin SUGAR FREE 100 MG/5 ML UDC PO PRN (08:10)
[2019-05-28] MEDS: ONDANSETRON INJ 2 MG/ML 2 ML VIAL IV PRN ×2 (11:54→19:49)
[2019-05-28] MEDS ORDERED: Nursing to Pharmacy Communication ONE (14:57)
[2019-05-28] MEDS ORDERED: LORazepam 0.5 MG TAB PO PRN (15:24)
--- NOTE | 2019-05-28 15:28 | Hospitalist Progress Note ---
Date of Service May 28, 2019 Assessment & Plan (1) MARTINEZ (dyspnea on exertion): Ddx includes symptomatic anemia vs. primary pulmonary issue vs. atypical angina. CT chest on 05/24 showed mild emphysematous changes. Repeat CTA on 05/27 showed volume overload. - Got 2 units of PRBCs on 05/24 - Hgb was 12.0 on 05/25 - At baseline - Got Lasix on 05/24 - 05/27. Discussed with cardiology today. - Concern for CHF as she is mostly volume even at this point during admission, and her symptoms usually kick in with lying flat. Some concern for atypical angina as well given that when she has stress, she immediately has more shortness of breath. - Elevated troponin on 05/27 in the setting of worsening shortness of breath and tachypnea & tachycardia. Stable; non-ischemic pattern. - Plan for nuclear stress on Wednesday. - Trialing nitroglycerin patch today per cardiology rec. - Got cultures and ESR on 05/28 for concern for endocarditis. (2) ZAC (acute kidney injury): Baseline Cr is 0.8. - On 05/28, Cr bumped to 1.2 with Lasix diuresis. - Holding further diuresis today. Given her volume overload, I am very reluctant to give IVFs. Will hold both fluids and diuresis today and monitor UOP and Cr. (3) GI bleed: EGD on 05/23 showed esophagitis consistent with candidiasis along with gastritis. No overt melena or hematochezia. CT a/p on 05/24 did not show any mass or concerning findings related to bleeding. - GI consulted - Appreciate recs - PPI PO BID - Fluconazole for esophageal candidiasis (4) Essential hypertension: BP mildly elevated in the hospital at 170/50. - Continue valsartan and verapamil. - Hold hydrochlorothiazide while giving Lasix (5) DVT prophylaxis: Avoid heparin and Lovenox. SCDs only. Subjective Still short of breath. Honestly, no better than prior days, possibly worse. With some nausea now. Review of Systems Review of Systems: All systems reviewed & are unremarkable except as noted in HPI & below Physical Exam Constitutional: WD/WN, vitals as above + acute distress (Breathing hard) Eyes: EOM intact bilaterally; no conjunctival abnormality ENMT: external ear and nose normal, oropharynx normal Neck: trachea midline, no thyromegaly normal visual inspection Respiratory: normal respiratory effort, lungs clear to auscultation no respiratory distress Cardiovascular: RRR, no murmur, no edema Gastrointestinal (Abdomen): Inspection/Auscultation: abdomen normal to inspection; abdomen not distended Musculoskeletal: no cyanosis or clubbing, extremities motor strength 5/5 Skin: no rashes, warm and dry Neurologic: moves all extremities and awake Psychiatric: Orientation: alert, oriented to person and cooperative Results & Data Vital Signs (Past 12 Hours) Vital Signs Temp Pulse Resp BP BP Pulse Ox 05/28/19 14:21 96 H 26 H 97 05/28/19 12:02 36.5 C 81 22 125/69 93 05/28/19 08:01 36.6 C 78 24 123/55 L 89 L 05/28/19 07:05 62 18 96 05/28/19 03:52 36.5 C 72 22 94/53 L 94 PG Care Time/CCT Total # of Minutes Spent Total Time Spent with Patient: Total time spent is greater than 50% in coordination of care (as documented) at patient's floor/unit and/or counseling patient:
[2019-05-28] MEDS: VERAPAMIL HCL 120 MG TABCR PO SCH (20:22)
[2019-05-28] MEDS: ATORVASTATIN 40 MG TAB PO SCH (20:23)
[2019-05-28] MEDS ORDERED: LORazepam 0.5 MG TAB PO SCH (21:00)
[2019-05-29] MEDS: LEVALBUTEROL HCL 0.63 MG/3 ML NEB NEB SCH ×4 (01:31→19:41)
[2019-05-29] MEDS ORDERED: FUROSEMIDE 40 MG/4 ML VIAL IV STA (02:15)
[2019-05-29] MEDS ORDERED: FUROSEMIDE 40 MG/4 ML VIAL IV ONE (02:18)
[2019-05-29] MEDS ORDERED: FUROSEMIDE 40 MG in SYRINGE 0 ML IV ONE (02:30)
[2019-05-29 06:27] LABS: Hematocrit (blood only) 33.3 % (37-47); Hemoglobin 11.2 g/dL (12.0-16.0); Mean Corpuscular Hgb Conc 33.6 g/dL (32-36); Mean Corpuscular Volume 89.3 fL (80-100); Mean Platelet Volume 9.9 fL (7.4-10.4); Platelet Count 304 K/uL (130-400); RDW Coefficient of Variation 14.2 % (11.5-14.5); Red Blood Count 3.73 M/uL (4.2-5.4); White Blood Count 18.75 K/uL (4.8-10.8)
--- NOTE | 2019-05-29 06:32 | XRay Report ---
XR chest 1V portable HISTORY: 89 years-old Female SOB acute shortness of breath COMPARISON: CTA chest 05/27/2019, chest radiograph 04/26/2019 TECHNIQUE: Portable AP view of the chest FINDINGS: Cardiac silhouette is enlarged. Calcified plaque the thoracic aortic arch. No pneumothorax. Small to moderate bilateral pleural effusions with bibasilar opacities. Pulmonary edema pattern of disease wit h pulmonary vascular congestion and interstitial coarsening is new from comparison. Degenerative delacruz ges of the shoulders and spine. IMPRESSION: 1. Cardiomegaly with pulmonary edema, new from comparison. 2. Bilateral pleural effusions with bibasilar opacities suggestive of probable atelectasis. The above report was generated using voice recognition software. It may contain grammatical, syntax o r spelling errors. Electronically signed by: Ronnie Howell M.D. 05/29/2019 6:31 AM
[2019-05-29] MEDS ORDERED: FUROSEMIDE 20 MG in SYRINGE 0 ML IV ONE (06:46)
[2019-05-29 07:03] LABS: BUN Creatinine Ratio 19.9 (10-20); Calcium 8.7 mg/dl (8.5-10.1); Creatinine Clr Calc Pharmacy 13.1 ml/min; Est GFR (African American) 22.4; Est GFR (Non-African American) 19.3
[2019-05-29] MEDS: VALSARTAN 80 MG TAB PO SCH (07:40)
[2019-05-29] MEDS: FLUCONAZOLE 100 MG TAB PO SCH (07:40)
[2019-05-29] MEDS: MULTIVITAMIN TAB PO SCH (07:41)
[2019-05-29] MEDS: PANTOprazole 40 MG TAB PO SCH ×2 (07:41→20:28)
[2019-05-29] MEDS ORDERED: VANCOMYCIN CONSULT ACTIVE PRN (07:42)
[2019-05-29] MEDS ORDERED: VANCOMYCIN HCL 1,000 MG in SODIUM CHLORIDE 0.9% 250 ML IV SCH (07:45)
[2019-05-29] MEDS: SUCRALFATE 1 GM/10 ML UDC PO SCH ×4 (07:55→20:28)
[2019-05-29] MEDS ORDERED: VANCOMYCIN HCL 1,250 MG in SODIUM CHLORIDE 0.9% 250 ML IV ONE (08:00)
--- NOTE | 2019-05-29 09:57 | Pharmacy Report ---
Pharmacy Abx Dose Short Note - Date of Service May 29, 2019 - Assessment & Plan A/P 89 yo F growing GPC in 2/2 blood bottles. She has been hospitalized >48hrs, certainly reasonable to cover MRSA. She is currently experiencing an ZAC: baseline SCr:0.8. Today's Scr 2.2. BUN/Scr >20:1, Hypotensive with occasional hypertension. Nil muddy brown casts in UA. Unknown FENa %. Leading me to believe this is likely a pre-renal/functional ZAC rather than an intrinsic ZAC. Pt's population p'kinetics: t1/2=45, ke=0.0152. Waiting on ECHO. Vancomycin: 1250mg IV (24mg/kg) x1 Will check random lvl 05/30/19 @0444 Goal trough: 15-20mcg/mL Pharmacy will continue to follow and will adjust dose/frequency as necessary. Thank you.
--- NOTE | 2019-05-29 10:21 | Infectious Disease Consult ---
Date of Consultation May 29, 2019 Assessment & Plan (1) Gram positive sepsis: will repeat blood cultures and change to dapto pending additional micro data. Will need echo to r/o IE. Unclear source, GI, oral, no signs of skin/soft tissue infection. Will repeat blood cultures x 2 and follow results. Final abx plan will depend on ID/sensitivity, echo findings, etc. Discussed with pt and family, will follow. History of Present Illness Attending Physician: Emerald Carias MD pt admitted on 05/22 with MARTINEZ, also found to have +heme stool, hgb 8. Was evaluated by GI, EGD done, gastritis and esophageal candiadisis found, treated with fluconazole and ppi. Continued with sob and MARTIENZ, had ct abd, negative, ct chest and then CTA on 05/27 - no PE but found to have CHF and effusions. Being followed by Cardio and Pulm, undergoing diuresis. She has been afebrile since admission with exception of an isolated low grade fever of 37.6 on 05/25. Family at bedside and provide majority of history, state she does not usually have fever, even with infection. Her wbc has been elevated since admission, as high as 30 on 05/23, 18.7 today. ESR elevated at 66 and procalcitonin mildly elevated at 0.5. Her creat was normal on admission, 0.7 but has increased today to 2.1. She has underwood in place, nephro following. CXR this am again showing pulm edema. She does admit to sob at rest, O2 mask in place, denies cp, no cough, no n/v/d, no abd pain, poor po intake, was to have stress test, family states cancelled. has h/o . She had blood cultures done yesterday, no fever documented, now 4/4 bottles growing gpc, final pending. ID asked to eval for bsi and ? IE. She was placed on vanco this am, tolerating well. Allergies Allergy/AdvReac Type Severity Reaction Status Date / Time Sulfa (Sulfonamide AdvReac Unknown Unknown Unverified 05/22/19 11:08 Antibiotics) Home Medications Home Medications Medication Instructions Recorded Confirmed Type acetaminophen [Tylenol] 650 mg PO BID 05/11/19 05/22/19 History aspirin 325 mg PO HS 05/11/19 05/22/19 History atorvastatin 40 mg PO HS 05/11/19 05/22/19 History cetirizine [Zyrtec] 10 mg PO DAILY PRN 05/11/19 05/22/19 History multivitamin 1 tab PO QAM 05/11/19 05/22/19 History omeprazole 20 mg PO QAM 05/11/19 05/22/19 History valsartan-hydrochlorothiazide 1 tab PO QAM 05/11/19 05/22/19 History verapamil 120 mg PO HS 05/11/19 05/22/19 History Patient History Medical History Essential hypertension (Chronic) GI bleed (Acute) Acute UTI (Inactive) Acute hyponatremia (Inactive) Migraines Surgical History H/O: hysterectomy Family History Other Family history non-contributory Social History Preferred Language: Marshallese Communication Ability: Effective Scraper Hand Required: Yes Beliefs That Will Affect Care: None marital status: / Current Living Situation: Personal Care Facility current occupational status: retired Feels Safe at Home: Yes Safety Concerns: Feels Safe At This Time Smoking Status: Never smoker Hx Alcohol Use: No Hx Substance Use: No Review of Systems Review of Systems: All systems reviewed & are unremarkable except as noted in HPI & below Physical Exam Constitutional: WD/WN, vitals as above + ill appearing and + cachectic Eyes: PERRL, conjunctivae normal, anicteric sclerae ENMT: external ear and nose normal, oropharynx normal dry mm Neck: normal visual inspection Respiratory: normal respiratory effort, lungs clear to auscultation Auscultation: + diminished lung sounds Cardiovascular: RRR, no murmur, no edema Extremities: no pedal edema Gastrointestinal (Abdomen): normal bowel sounds, soft, nontender, no hepatosplenomegaly Musculoskeletal: no cyanosis or clubbing, extremities motor strength 5/5 Skin: no rashes, warm and dry Psychiatric: A+Ox3, euthymic affect Results & Data Vital Signs (Past 12 Hours) Vital Signs Temp Pulse Pulse Resp BP Pulse Ox 05/29/19 08:00 81 05/29/19 07:19 37.0 C 88 20 115/60 96 05/29/19 06:53 87 20 94 05/29/19 03:40 36.7 C 79 22 106/55 L 99 05/29/19 01:34 88 26 H 89 L 05/28/19 23:16 36.4 C L 93 H 22 120/63 98 Laboratory Results Microbiology 05/28/19 13:57 Blood Aerobic Blood Culture - Preliminary Gram positive cocci 05/28/19 13:57 Blood Anaerobic Blood Culture - Preliminary Gram positive cocci 05/28/19 14:05 Blood Aerobic Blood Culture - Preliminary Gram positive cocci 05/28/19 14:05 Blood Anaerobic Blood Culture - Preliminary Gram positive cocci 05/23/19 10:15 Throat Fungal Smear - Final 05/23/19 10:15 Throat Fungal Culture - Final Cate albicans 05/22/19 11:17 Urine,Clean Catch Urine Culture - Final More than three types of organisms present, all high counts mixed probable skin natalie - No further identifications or sensitivities to follow.
[2019-05-29] MEDS ORDERED: DAPTOmycin 275 MG in SYRINGE 0 ML IV SCH (10:30)
[2019-05-29] MEDS: NITROGLYCERIN 0.2 MG/HR PATCH TD SCH (10:45)
[2019-05-29] MEDS: DAPTOmycin 400 MG in SYRINGE 0 ML IV SCH (11:11)
[2019-05-29 11:29] LABS: Appearance Urine Turbid (Clear); Bacteria Urine Automated Negative (Negative); Bilirubin Urine Negative (Negative); Blood Urine 2+ (Negative); Color Urine Dark Yellow; Glucose Urine UA Negative (Negative); Ketones Urine Negative (Negative); Leukocyte Esterase Urine 3+ (Negative); Nitrite Urine Negative (Negative); Protein Urine Trace (Negative); Specific Gravity Urine 1.023 (1.000-1.030); Urobilinogen Urine Negative (Negative); WBC Urine Automated >30 /hpf (0-5)
[2019-05-29 11:40] LABS: BUN Creatinine Ratio 20.7 (10-20); Est GFR (African American) 22.2; Est GFR (Non-African American) 19.1
[2019-05-29 11:47] LABS: RBC Urine Automated >30 /hpf (0-4)
--- NOTE | 2019-05-29 11:52 | Hospitalist Progress Note ---
Date of Service May 29, 2019 Assessment & Plan (1) Septicemia: Presented with progressive fatigue and dyspnea since the end of March, but no reports of fevers. 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 -Started IV vancomycin but then infectious disease switched her to IV daptomycin given renal failure -Consult infectious disease-appreciate recommendations -Is not able to withstand a LILIAN at this time due to severe respiratory distress as below-discussed with cardiology -Would likely just treat empirically with 4 to 6 weeks of IV antibiotics -Follow blood cultures until sterile (2) Acute respiratory failure with hypoxia: Secondary to acute on chronic diastolic CHF, with bilateral pleural effusions and pulmonary edema worsening on chest x-ray on 05/29 Continues to be in significant respiratory distress-placed back on BiPAP again today -Attempts at diuresis have not been good and now with renal failure as below -Transfer to ICU in case of need for intubation and for possible thoracentesis evaluation -Follow chest x-ray in the morning (3) Acute on chronic diastolic CHF (congestive heart failure): Has had progressive dyspnea on exertion over the last 2 months, much worse in the last week, and then significantly worse since receiving PRBC transfusion for anemia Echocardiogram with moderate aortic stenosis with preserved EF Question if this is been exacerbated by her septicemia and perhaps by suspected infective endocarditis Has had multiple doses of IV Lasix and still requiring BiPAP as above Now with acute kidney injury and urine output trending downward -Giving IV albumin x1 as per motor and generator brush maker -Diuresis with loop diuretics intermittently -Follow I's and O's, daily weights -Appreciate cardiology consultation (4) ZAC (acute kidney injury): Baseline Cr is 0.8. - On 05/28, Cr bumped to 1.2 with Lasix diuresis. On 05/29, creatinine increased again to 2.19 and BUN up to 44, did receive IV diuretics but fractional excretion of sodium calculated to be prerenal, no granular casts on UA Because of her severe respiratory distress and worsening pulmonary edema, she was given total of 60 mg of IV Lasix on the morning of 05/29 with not a brisk response of urine output Repeat BMP later in the day showed creatinine trending down to 2.0 -Giving IV albumin as above -Appreciate nephrology consultation -Loop diuretics intermittently to encourage negative fluid balance -Follow BMP in the morning (5) MARTINEZ (dyspnea on exertion): Progressively worsening over the last 2 months, most likely secondary to acute on chronic diastolic CHF, symptomatic anemia, and pleural effusions CT chest on 05/24 showed mild emphysematous changes. Repeat CTA on 05/27 showed volume overload. - Got 2 units of PRBCs on 05/24 - Elevated troponin on 05/27 in the setting of worsening shortness of breath and tachypnea & tachycardia. Stable; non-ischemic pattern. -Canceled nuclear stress as originally planned. -Continue nitroglycerin patch per cardiology rec. (6) GI bleed: Presented with anemia with hemoglobin of 8, now improved to 10.6 after PRBC transfusion on 05/24 EGD on 05/23 showed esophagitis consistent with candidiasis along with gastritis. No overt melena or hematochezia. CT a/p on 05/24 did not show any mass or concerning findings related to bleeding. - GI consulted - Appreciate recs -Continue PPI PO BID and Carafate -Continue fluconazole for esophageal candidiasis x21-day course -Follow CBC (7) Essential hypertension: BP is controlled -Hold valsartan due to ZAC and hold verapamil due to possibility of causing worsening renal function as per discussion with pharmacy -Continue to hold hydrochlorothiazide (8) Esophageal candidiasis: As above -Treating with Diflucan x21-day course with last day being approximately 06/14/2019 (9) Hyponatremia: Sodium has been in the mid 120s throughout her entire stay and is likely due to volume overload and CHF -Attempts at diuresis as above -Nephrology following -Follow BMP (10) Elevated troponin: Mildly elevated at 0.5 and stable x3 in the setting of acute CHF as above and respiratory distress No ischemic pattern Echocardiogram on 05/22 without wall motion abnormalities Nuclear stress test canceled for today due to severe respiratory distress -Appreciate cardiology consultation (11) Aortic stenosis: Moderate, noted on echocardiogram -Should be followed routinely as an outpatient (12) Carotid artery stenosis: Known to have bilateral SHITAL 50-69%, followed as an outpatient -Holding home aspirin due to recent GI bleed -Continue atorvastatin 40 mg p.o. nightly (13) DVT prophylaxis: Avoid heparin and Lovenox due to GI bleeding. SCDs only. Disposition-transfer to intensive care unit today for worsening respiratory distress in case of impending worsening respiratory failure and need for intubation as well as possible thoracentesis Subjective Pt had a rough night overnight, was very SOB and required placement back on BiPAP. Repeat CXR showed worsening pulmonary edema. When I saw her this morning, she was still very short of breath and was on an oxygen mask, very tachypneic. Her daughter and son were at the bedside. Discussed the case with pulmonology and the motor and generator brush maker. I placed her back on BiPAP and decided to transfer her down to the ICU to be evaluated for thoracentesis and in case of need for intubation of which the patient is agreeable. She has worsening renal failure and her urine output has been low in the last 12 hours despite receiving Lasix 2 doses earlier this morning. She remains afebrile but her blood cultures turned up positive today for gram- positive cocci in all 4 bottles. I also discussed the case with infectious disease. Telemetry with normal sinus rhythm with PACs with rates in the 80s to 90s Review of Systems Review of Systems: All systems reviewed & are unremarkable except as noted in HPI & below Denies diarrhea or abdominal pain, has an intermittent mild headache but not currently. Denies chest pain. Physical Exam Constitutional: + acute distress, average body habitus, + frail appearing and + lethargic Eyes: + anicteric sclerae ENMT: external ear and nose normal, oropharynx normal Neck: trachea midline, no thyromegaly Respiratory: + labored breathing, + uses accessory muscles and + tachypneic Auscultation: + diminished lung sounds (At the bases bilaterally) and + crackles (In the middle lung whittaker bilaterally); no rhonchi and no wheezes Cardiovascular: RRR, no murmur, no edema Gastrointestinal (Abdomen): normal bowel sounds, soft, nontender, no hepatosplenomegaly Musculoskeletal: Extremities: extremities normal to inspection; no cyanosis and no clubbing Skin: no rashes, warm and dry Neurologic: moves all extremities and awake; no focal motor deficits Psychiatric: A+Ox3, euthymic affect Results & Data Vital Signs (Past 12 Hours) Vital Signs Temp Pulse Pulse Resp BP Pulse Ox 05/29/19 08:00 81 05/29/19 07:19 37.0 C 88 20 115/60 96 05/29/19 06:53 87 20 94 05/29/19 03:40 36.7 C 79 22 106/55 L 99 05/29/19 01:34 88 26 H 89 L Laboratory Results 05/29/19 05/29/19 05/29/19 Range/Units 15:39 12:25 11:07 WBC (4.8-10.8) K/uL RBC (4.2-5.4) M/uL Hgb (12.0-16.0) g/dL Hct (37-47) % MCV (80-100) fL MCH (25-34) pg MCHC (32-36) g/dL RDW Std Deviation (36.4-46.3) fL RDW Coeff of Sean (11.5-14.5) % Plt Count (130-400) K/uL MPV (7.4-10.4) fL Sodium 125 L (136-145) mmol/L Potassium 3.9 (3.5-5.1) mmol/L Chloride 91 L (98-107) mmol/L Carbon Dioxide 23 (21-32) mmol/L Anion Gap 11.0 (3-11) BUN 49 H (7-18) mg/dl Creatinine 2.08 H (0.6-1.2) mg/dl Est Cr Clr Drug Dosing 13.8 ml/min Est GFR ( Amer) 23.9 Est GFR (Non-Af Amer) 20.6 BUN/Creatinine Ratio 23.5 H (10-20) Glucose 103 H (70-99) mg/dl Calcium 8.5 (8.5-10.1) mg/dl Magnesium (1.8-2.4) mg/dl Total Creatine Kinase (26-192) U/L Urine Color Dark Yellow Urine Appearance Turbid A (Clear) Urine pH 5.0 (4.5-7.5) Ur Specific [place] 1.023 (1.000-1.030) Urine Protein Trace H (Negative) Urine Glucose (UA) Negative (Negative) Urine Ketones Negative (Negative) Urine Blood 2+ H (Negative) Urine Nitrite Negative (Negative) Urine Bilirubin Negative (Negative) Urine Urobilinogen Negative (Negative) Ur Leukocyte Esterase 3+ H (Negative) Urine WBC (Auto) >30 H (0-5) /hpf Urine RBC (Auto) >30 H (0-4) /hpf U Hyaline Cast (Auto) 10-30 H (0-5) /lpf U Epithel Cells (Auto) 10-20 H (0-5) /lpf Urine Bacteria (Auto) Negative (Negative) Urine Yeast Not Reportable Ur Random Creatinine mg/dl Ur Random Sodium mmol/L Nasal Screen MRSA (PCR) Positive A (Negative) 05/29/19 05/29/19 05/29/19 Range/Units 11:07 11:07 10:53 WBC (4.8-10.8) K/uL RBC (4.2-5.4) M/uL Hgb (12.0-16.0) g/dL Hct (37-47) % MCV (80-100) fL MCH (25-34) pg MCHC (32-36) g/dL RDW Std Deviation (36.4-46.3) fL RDW Coeff of Sean (11.5-14.5) % Plt Count (130-400) K/uL MPV (7.4-10.4) fL Sodium 126 L (136-145) mmol/L Potassium 4.0 (3.5-5.1) mmol/L Chloride 89 L (98-107) mmol/L Carbon Dioxide 25 (21-32) mmol/L Anion Gap 12.0 H (3-11) BUN 46 H (7-18) mg/dl Creatinine 2.21 H (0.6-1.2) mg/dl Est Cr Clr Drug Dosing 13.0 ml/min Est GFR ( Amer) 22.2 Est GFR (Non-Af Amer) 19.1 BUN/Creatinine Ratio 20.7 H (10-20) Glucose 112 H (70-99) mg/dl Calcium 9.0 (8.5-10.1) mg/dl Magnesium (1.8-2.4) mg/dl Total Creatine Kinase 39 (26-192) U/L Urine Color Urine Appearance (Clear) Urine pH (4.5-7.5) Ur Specific [place] (1.000-1.030) Urine Protein (Negative) Urine Glucose (UA) (Negative) Urine Ketones (Negative) Urine Blood (Negative) Urine Nitrite (Negative) Urine Bilirubin (Negative) Urine Urobilinogen (Negative) Ur Leukocyte Esterase (Negative) Urine WBC (Auto) (0-5) /hpf Urine RBC (Auto) (0-4) /hpf U Hyaline Cast (Auto) (0-5) /lpf U Epithel Cells (Auto) (0-5) /lpf Urine Bacteria (Auto) (Negative) Urine Yeast Ur Random Creatinine 104.0 mg/dl Ur Random Sodium Cancelled 21 mmol/L Nasal Screen MRSA (PCR) (Negative) 05/29/19 05/29/19 Range/Units 06:07 06:07 WBC 18.75 H (4.8-10.8) K/uL RBC 3.73 L (4.2-5.4) M/uL Hgb 11.2 L (12.0-16.0) g/dL Hct 33.3 L (37-47) % MCV 89.3 (80-100) fL MCH 30.0 (25-34) pg MCHC 33.6 (32-36) g/dL RDW Std Deviation 47.0 H (36.4-46.3) fL RDW Coeff of Sean 14.2 (11.5-14.5) % Plt Count 304 (130-400) K/uL MPV 9.9 (7.4-10.4) fL Sodium 126 L (136-145) mmol/L Potassium 4.0 (3.5-5.1) mmol/L Chloride 90 L (98-107) mmol/L Carbon Dioxide 25 (21-32) mmol/L Anion Gap 11.0 (3-11) BUN 44 H (7-18) mg/dl Creatinine 2.19 H D (0.6-1.2) mg/dl Est Cr Clr Drug Dosing 13.1 ml/min Est GFR ( Amer) 22.4 Est GFR (Non-Af Amer) 19.3 BUN/Creatinine Ratio 19.9 (10-20) Glucose 111 H (70-99) mg/dl Calcium 8.7 (8.5-10.1) mg/dl Magnesium 2.0 (1.8-2.4) mg/dl Total Creatine Kinase (26-192) U/L Urine Color Urine Appearance (Clear) Urine pH (4.5-7.5) Ur Specific [place] (1.000-1.030) Urine Protein (Negative) Urine Glucose (UA) (Negative) Urine Ketones (Negative) Urine Blood (Negative) Urine Nitrite (Negative) Urine Bilirubin (Negative) Urine Urobilinogen (Negative) Ur Leukocyte Esterase (Negative) Urine WBC (Auto) (0-5) /hpf Urine RBC (Auto) (0-4) /hpf U Hyaline Cast (Auto) (0-5) /lpf U Epithel Cells (Auto) (0-5) /lpf Urine Bacteria (Auto) (Negative) Urine Yeast Ur Random Creatinine mg/dl Ur Random Sodium mmol/L Nasal Screen MRSA (PCR) (Negative) Diagnostic Findings Chest x-ray image personally reviewed by me and agree with the following report: XR chest 1V portable HISTORY: 89 years-old Female SOB acute shortness of breath COMPARISON: CTA chest 05/27/2019, chest radiograph 04/26/2019 TECHNIQUE: Portable AP view of the chest FINDINGS: Cardiac silhouette is enlarged. Calcified plaque the thoracic aortic arch. No pneumothorax. Small to moderate bilateral pleural effusions with bibasilar opacities. Pulmonary edema pattern of disease with pulmonary vascular congestion and interstitial coarsening is new from comparison. Degenerative changes of the shoulders and spine. IMPRESSION: 1. Cardiomegaly with pulmonary edema, new from comparison. 2. Bilateral pleural effusions with bibasilar opacities suggestive of probable atelectasis. PG Care Time/CCT Total # of Minutes Spent Total Time Spent with Patient: Total time spent is greater than 50% in coordination of care (as documented) at patient's floor/unit and/or counseling patient:
[2019-05-29] MEDS ORDERED: ICU PROTOCOL FOR HYPERGLYCEMIA PRN (12:24)
--- NOTE | 2019-05-29 12:45 | Nephrology Consultation ---
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 This is an ongoing conversation. (2) MARTINEZ (dyspnea on exertion): -- Continue furosemide to encourage net negative fluid balance (3) GI bleed: -- EGD on 05/23 showed esophagitis consistent with candidiasis along with gastritis -- PPI PO BID -- Fluconazole for esophageal candidiasis (4) Essential hypertension: -- Hold HCTZ and valsartan History of Present Illness Attending Physician: Emerald Carias MD History of Present Illness Nighat Greene is an 89-year-old female who presented to the ER at [facility] from [facility] on 05/22 for evaluation of dyspnea and chest discomfort. The patient had been evaluated by her PCP prior to admission. She had recently completed a course of ciprofloxacin for a urinary tract infection. On presentation, she was found to have notable anemia and heme + stool. EGD done, gastritis and esophageal candiadisis. Treatment has included fluconazole and PPI therapy. 2 units of PRBC transfusion support were provided. Hemoglobin has been stable but WBC elevated. Nighat has continued to struggle with dyspnea and hypoxia. Imaging has included chest CT, CTA, and CXR demonstrating pulmonary edema, pulomonary vascular congestion, and bilateral pleural effusions. CT of the abdomen demonstrated normal appearing kidneys. The patient is being fo llowed by cardiology and pulmonology. ID consultation was providd this morning regarding positive blood cultures for GPC. Creatinine has risen from < 1 mg/dL to >2 mg/dL in the past 48 hours. Nighat remains non-oliguric. She received furosemide 40 mg at 2:00 AM and an additional 20 mg at 7 AM. Benitez is draining cloudy yellow urine. The patient was seen and evaluated with her son (Akhil) and daughter (Malena) at the bedside. Allergies Allergy/AdvReac Type Severity Reaction Status Date / Time Sulfa (Sulfonamide AdvReac Unknown Unknown Unverified 05/22/19 11:08 Antibiotics) Home Medications Home Medications Medication Instructions Recorded Confirmed Type acetaminophen [Tylenol] 650 mg PO BID 05/11/19 05/22/19 History aspirin 325 mg PO HS 05/11/19 05/22/19 History atorvastatin 40 mg PO HS 05/11/19 05/22/19 History cetirizine [Zyrtec] 10 mg PO DAILY PRN 05/11/19 05/22/19 History multivitamin 1 tab PO QAM 05/11/19 05/22/19 History omeprazole 20 mg PO QAM 05/11/19 05/22/19 History valsartan-hydrochlorothiazide 1 tab PO QAM 05/11/19 05/22/19 History verapamil 120 mg PO HS 05/11/19 05/22/19 History Patient History Medical History Essential hypertension (Chronic) GI bleed (Acute) Acute UTI (Inactive) Acute hyponatremia (Inactive) Migraines Surgical History H/O: hysterectomy Family History Other Family history non-contributory Social History Preferred Language: Bur[place]ian Communication Ability: Effective 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 Beliefs That Will Affect Care: None marital status: / Current Living Situation: Personal Care Facility current occupational status: retired Feels Safe at Home: Yes Safety Concerns: Feels Safe At This Time Smoking Status: Never smoker Hx Alcohol Use: No Hx Substance Use: No Review of Systems Review of Systems: All systems reviewed & are unremarkable except as noted in HPI & below Physical Exam Constitutional: + frail appearing; no acute distress Eyes: no scleral abnormality and no corneal abnormality ENMT: Mouth: no oral mucosal abnormality and oral mucous membranes not dry Neck: normal visual inspection and trachea midline Respiratory: + labored breathing Auscultation: + diminished lung sounds and + rales Cardiovascular: Rate/Rhythm: regular rate and regular rhythm Heart Sounds: normal S1 and normal S2 Vessels: + JVD Extremities: no edema Gastrointestinal (Abdomen): Percussion/Palpation: abdomen soft; abdomen nontender Musculoskeletal: Extremities: no cyanosis and no clubbing Skin: + turgor decreased; no rashes Neurologic: Motor/Sensory: no tremor and no asterixis Psychiatric: Orientation: alert Affect: euthymic affect Results & Data Vital Signs (Past 12 Hours) Vital Signs Temp Pulse Pulse Resp BP Pulse Ox 05/29/19 12:08 36.5 C 86 18 113/69 99 05/29/19 08:00 81 05/29/19 07: 37.0 C 88 20 115/60 96 05/29/19 06:53 87 20 94 05/29/19 03:40 36.7 C 79 22 106/55 L 99 05/29/19 01:34 88 26 H 89 L Laboratory Results Laboratory Results - last 24 hr 05/28/19 05/29/19 05/29/19 13:57 06:07 06:07 WBC 18.75 H RBC 3.73 L Hgb 11.2 L Hct 33.3 L MCV 89.3 MCH 30.0 MCHC 33.6 RDW Std Deviation 47.0 H RDW Coeff of Sean 14.2 Plt Count 304 MPV 9.9 ESR 66 H Sodium 126 L Potassium 4.0 Chloride 90 L Carbon Dioxide 25 Anion Gap 11.0 BUN 44 H Creatinine 2.19 H D Est Cr Clr Drug Dosing 13.1 Est GFR ( Amer) 22.4 Est GFR (Non-Af Amer) 19.3 BUN/Creatinine Ratio 19.9 Glucose 111 H Calcium 8.7 Magnesium 2.0 Total Creatine Kinase Urine Color Urine Appearance Urine pH Ur Specific [place] Urine Protein Urine Glucose (UA) Urine Ketones Urine Blood Urine Nitrite Urine Bilirubin Urine Urobilinogen Ur Leukocyte Esterase Urine WBC (Auto) Urine RBC (Auto) U Hyaline Cast (Auto) U Epithel Cells (Auto) Urine Bacteria (Auto) Urine Yeast Ur Random Creatinine Ur Random Sodium Nasal Screen MRSA (PCR) 05/29/19 05/29/19 05/29/19 10:53 11:07 11:07 WBC RBC Hgb Hct MCV MCH MCHC RDW Std Deviation RDW Coeff of Sean Plt Count MPV ESR Sodium 126 L Potassium 4.0 Chloride 89 L Carbon Dioxide 25 Anion Gap 12.0 H BUN 46 H Creatinine 2.21 H Est Cr Clr Drug Dosing 13.0 Est GFR ( Amer) 22.2 Est GFR (Non-Af Amer) 19.1 BUN/Creatinine Ratio 20.7 H Glucose 112 H Calcium 9.0 Magnesium Total Creatine Kinase 39 Urine Color Urine Appearance Urine pH Ur Specific [place] Urine Protein Urine Glucose (UA) Urine Ketones Urine Blood Urine Nitrite Urine Bilirubin Urine Urobilinogen Ur Leukocyte Esterase Urine WBC (Auto) Urine RBC (Auto) U Hyaline Cast (Auto) U Epithel Cells (Auto) Urine Bacteria (Auto) Urine Yeast Ur Random Creatinine 104.0 Ur Random Sodium 21 Cancelled Nasal Screen MRSA (PCR) 05/29/19 05/29/19 11:07 12:25 WBC RBC Hgb Hct MCV MCH MCHC RDW Std Deviation RDW Coeff of Sean Plt Count MPV ESR Sodium Potassium Chloride Carbon Dioxide Anion Gap BUN Creatinine Est Cr Clr Drug Dosing Est GFR ( Amer) Est GFR (Non-Af Amer) BUN/Creatinine Ratio Glucose Calcium Magnesium Total Creatine Kinase Urine Color Dark Yellow Urine Appearance Turbid A Urine pH 5.0 Ur Specific [place] 1.023 Urine Protein Trace H Urine Glucose (UA) Negative Urine Ketones Negative Urine Blood 2+ H Urine Nitrite Negative Urine Bilirubin Negative Urine Urobilinogen Negative Ur Leukocyte Esterase 3+ H Urine WBC (Auto) >30 H Urine RBC (Auto) >30 H U Hyaline Cast (Auto) 10-30 H U Epithel Cells (Auto) 10-20 H Urine Bacteria (Auto) Negative Urine Yeast Not Reportable Ur Random Creatinine Ur Random Sodium Nasal Screen MRSA (PCR) Pending
--- NOTE | 2019-05-29 12:56 | Cardiology Progress Note ---
Date of Service May 29, 2019 Assessment & Plan (1) MARTINEZ (dyspnea on exertion): Dyspnea likely secondary to iatrogenic CHF. She is at risk due to her left ventricular hypertrophy and diastolic dysfunction. (2) Aortic stenosis: Her aortic valve stenosis is moderate in degree. We will perform yearly surveillance echocardiograms. (3) Acute on chronic diastolic CHF (congestive heart failure): Better compensated at this time. (4) Essential hypertension: Adequate control on her current medical regimen. (5) Hypercholesterolemia: Continue atorvastatin. (6) Gram positive sepsis: Unfortunately, with her aortic valve stenosis, we should continue antibiotics for 4-6 weeks. Subjective The patient is awake but some this morning. She has required 2 doses of intravenous Lasix over the last 24 hours. We have discussed her new diagnosis of gram positive sepsis. Physical Exam Physical Exam: In general is a well-developed well-nourished white female seated at the bedside without complaints. HEENT exam is negative. Neck is supple with full carotid upstrokes. A transmitted murmur is noted bilaterally. Jugular venous pressure is flat at 90 degrees. There is no thyromegaly. Cardiovascular exam reveals a regular rhythm with a 2/6 crescendo decrescendo systolic murmur is heard loudest at the base. S2 is audible at the apex. Lungs are clear without rales, rhonchi, wheezes. Abdomen is soft nontender without bruits. Extremities reveal intact radial artery pulses bilaterally. There is no peripheral edema. Results & Data Vital Signs (Past 12 Hours) Vital Signs Temp Pulse Pulse Resp BP BP Pulse Ox 05/29/19 12:18 36.5 C 93 H 34 H 157/86 H 05/29/19 12:08 36.5 C 86 18 113/69 99 05/29/19 08:00 81 05/29/19 07:19 37.0 C 88 20 115/60 96 05/29/19 06:53 87 20 94 05/29/19 03:40 36.7 C 79 22 106/55 L 99 05/29/19 01:34 88 26 H 89 L Diagnostic Findings school lunch monitor is benign. Two sets of blood cultures from yesterday are growing gram-positive cocci.
--- NOTE | 2019-05-29 15:14 | Critical Care Consultation ---
Date of Consultation May 29, 2019 Assessment & Plan (1) Admitted to intensive care unit: Nighat Greene is a 89 y/o female who presents to ICU for worsening respiratory status from pulmonary edema in setting of acute kidney injury and oliguria, with possible need for thoracentesis intervention. Neuro: CAM negative - Tylenol 650mg q4h PRN for pain/fever - Lorazepam 0.5mg q6h PRN for anxiety Cardiac/Vascular: PMHx: HTN, HLD - currently stable hemodynamics. - NTG patch qAM for chest discomfort - hold home anti-HTNs - Echocardiogram performed showed LV normal systolic function; no regional wall abnormalities; mild concentric LVH; EF 55-60%; moderate aortic stenosis Pulm: - continue with non-invasive BiPAP - bedside US performed for considerations for thoracentesis, but appears transudative - Xopenex 0.63mg neb q6h GI: PPx - Protonix 40mgBID; sucralfate 1gm qACHS Zofran for nausea continue with home multivitamin okay Renal/lytes: - elevated creatinine over the past 48 hours from <1 to 1.20 (05/28) to 2.21 in setting of diuresis to improve pulmonary edema - nephro consulted : underwood cath strict I/Os Endo: No hx of DM or thyroid disease Heme: - Leukocytosis of 18.75 on transfer to ICU, presented with value approx 15 that peaked to 20. - Hgb stable - Platelets WNL ID: - positive blood cultures for Gram + bacilli, pending ID and sensitivities - continue with daptomycin IV Also treated for esophageal candidiasis with Diflucan 100mg qAM DVT ppx:SCDs Resuscitation status: Full Code Supervising Physician Co-Signing Physician Notes Dr. Noland was resident physician during care of patient. I separately evaluated patient for perdomo portions of the history and the exam. I was present during the critical portion of medical decision making, and I discussed the case with the resident. I generally agree with the findings and plan. Acute hypoxic respiratory failure in the setting of decompensated CHF and acute kidney injury with worsening creatinine. Performed a bedside limited ultrasound which revealed diffuse B type profile consistent with pulmonary edema. Aggressive diuresis. I have personally spent 50 minutes of critical care time in the direct management of this patient. This is a life/limb threatening event. This includes time spent evaluating patient, direct bedside care, chart review, placing orders, interpretation of diagnostic studies, discussion with consultants, patient, and/or family members regarding treatment decisions, as well as other required patient management activities. This time is exclusive of all separately billable procedures, and teaching time and separate from and in addition to any other critical care service time. History of Present Illness Reason for Consultation: Pulmonary edema Attending Physician: Emerald Carias MD History of Present Illness Nighat Greene is a 89 y/o female who presented to [facility] ED from outside SNF on 05/22 for dyspnea. She was anemic with heme positive stool and required 2 units of pRBC. In addition, she had leukocytosis on presentation of 16.47 which peaked on 05/23 to 20., currently 18.75 (05/29 AM). She had workup including EGD which showed gastritis and esophageal candidiasis with treatment including fluconazole and PPI medication. Of note, prior to admission she completed a course of cipro for a UTI. Her hemoglobin has stabilized but still continued to have leukocytosis. Her respiratory status continued to have dyspnea and hypoxia. Imaging studies were obtained which showed pulmonary edema, pulmonary vascular congestion, and bilateral pleural effusions. She had positive blood cultures result for gram+ cocci. ID consulted and currently on Daptomycin IV. She is also being followed by cardiology and pulmonology. Her creatinine recently became elevated, up until yesterday her values have been <1, then increased to 1.2; today (05/29) AM value was 2.19 and then repeat performed approx 4 hours later was 2.21. She has been on Lasix for diuresis of pulmonary edema. She was noted to be non-oliguric. She was transferred to ICU for preparation for evaluation for thoracentesis to remove fluid from lungs and also managing of patient's decompensation with worsening renal function. Allergies Allergy/AdvReac Type Severity Reaction Status Date / Time Sulfa (Sulfonamide AdvReac Unknown Unknown Unverified 05/22/19 11:08 Antibiotics) Home Medications Home Medications Medication Instructions Recorded Confirmed Type acetaminophen [Tylenol] 650 mg PO BID 05/11/19 05/22/19 History aspirin 325 mg PO HS 05/11/19 05/22/19 History atorvastatin 40 mg PO HS 05/11/19 05/22/19 History cetirizine [Zyrtec] 10 mg PO DAILY PRN 05/11/19 05/22/19 History multivitamin 1 tab PO QAM 05/11/19 05/22/19 History omeprazole 20 mg PO QAM 05/11/19 05/22/19 History valsartan-hydrochlorothiazide 1 tab PO QAM 05/11/19 05/22/19 History verapamil 120 mg PO HS 05/11/19 05/22/19 History Patient History Medical History Essential hypertension (Chronic) GI bleed (Acute) Acute UTI (Inactive) Acute hyponatremia (Inactive) Migraines Surgical History H/O: hysterectomy Family History Other Family history non-contributory Social History Preferred Language: Italian Communication Ability: Effective Kelp Gatherer Required: Yes Beliefs That Will Affect Care: None marital status: / Current Living Situation: Personal Care Facility current occupational status: retired Feels Safe at Home: Yes Safety Concerns: Feels Safe At This Time Smoking Status: Never smoker Hx Alcohol Use: No Hx Substance Use: No Review of Systems Review of Systems: All systems reviewed & are unremarkable except as noted in HPI & below Physical Exam Constitutional: + ill appearing and comfortable Eyes: EOM intact bilaterally Neck: trachea midline Respiratory: no respiratory distress Auscultation: + diminished lung sounds (at bases bilaterally) and + crackles (at bases bilaterally) Cardiovascular: Rate/Rhythm: regular rate and regular rhythm Extremities: no edema Musculoskeletal: Head/Neck/Chest: normocephalic and head atraumatic Skin: no rashes, warm and dry Neurologic: moves all extremities and awake Psychiatric: Orientation: alert and oriented x 3 Results & Data Vital Signs (Past 12 Hours) Vital Signs Temp Pulse Pulse Resp BP BP Pulse Ox 05/29/19 14:00 81 22 140/59 L 99 05/29/19 13:00 83 22 139/59 L 100 05/29/19 12:18 36.5 C 93 H 34 H 157/86 H 05/29/19 12:08 36.5 C 86 18 113/69 99 05/29/19 08:00 81 05/29/19 07:19 37.0 C 88 20 115/60 96 05/29/19 06:53 87 20 94 05/29/19 03:40 36.7 C 79 22 106/55 L 99 Laboratory Results Laboratory Results - last 24 hr 05/29/19 05/29/19 05/29/19 06:07 06:07 10:53 WBC 18.75 H RBC 3.73 L Hgb 11.2 L Hct 33.3 L MCV 89.3 MCH 30.0 MCHC 33.6 RDW Std Deviation 47.0 H RDW Coeff of Sean 14.2 Plt Count 304 MPV 9.9 Sodium 126 L 126 L Potassium 4.0 4.0 Chloride 90 L 89 L Carbon Dioxide 25 25 Anion Gap 11.0 12.0 H BUN 44 H 46 H Creatinine 2.19 H D 2.21 H Est Cr Clr Drug Dosing 13.1 13.0 Est GFR ( Amer) 22.4 22.2 Est GFR (Non-Af Amer) 19.3 19.1 BUN/Creatinine Ratio 19.9 20.7 H Glucose 111 H 112 H Calcium 8.7 9.0 Magnesium 2.0 Total Creatine Kinase 39 Urine Color Urine Appearance Urine pH Ur Specific [place] Urine Protein Urine Glucose (UA) Urine Ketones Urine Blood Urine Nitrite Urine Bilirubin Urine Urobilinogen Ur Leukocyte Esterase Urine WBC (Auto) Urine RBC (Auto) U Hyaline Cast (Auto) U Epithel Cells (Auto) Urine Bacteria (Auto) Urine Yeast Ur Random Creatinine Ur Random Sodium Nasal Screen MRSA (PCR) 05/29/19 05/29/19 05/29/19 11:07 11:07 11:07 WBC RBC Hgb Hct MCV MCH MCHC RDW Std Deviation RDW Coeff of Sean Plt Count MPV Sodium Potassium Chloride Carbon Dioxide Anion Gap BUN Creatinine Est Cr Clr Drug Dosing Est GFR ( Amer) Est GFR (Non-Af Amer) BUN/Creatinine Ratio Glucose Calcium Magnesium Total Creatine Kinase Urine Color Dark Yellow Urine Appearance Turbid A Urine pH 5.0 Ur Specific [place] 1.023 Urine Protein Trace H Urine Glucose (UA) Negative Urine Ketones Negative Urine Blood 2+ H Urine Nitrite Negative Urine Bilirubin Negative Urine Urobilinogen Negative Ur Leukocyte Esterase 3+ H Urine WBC (Auto) >30 H Urine RBC (Auto) >30 H U Hyaline Cast (Auto) 10-30 H U Epithel Cells (Auto) 10-20 H Urine Bacteria (Auto) Negative Urine Yeast Not Reportable Ur Random Creatinine 104.0 Ur Random Sodium 21 Cancelled Nasal Screen MRSA (PCR) 05/29/19 12:25 WBC RBC Hgb Hct MCV MCH MCHC RDW Std Deviation RDW Coeff of Sean Plt Count MPV Sodium Potassium Chloride Carbon Dioxide Anion Gap BUN Creatinine Est Cr Clr Drug Dosing Est GFR ( Amer) Est GFR (Non-Af Amer) BUN/Creatinine Ratio Glucose Calcium Magnesium Total Creatine Kinase Urine Color Urine Appearance Urine pH Ur Specific [place] Urine Protein Urine Glucose (UA) Urine Ketones Urine Blood Urine Nitrite Urine Bilirubin Urine Urobilinogen Ur Leukocyte Esterase Urine WBC (Auto) Urine RBC (Auto) U Hyaline Cast (Auto) U Epithel Cells (Auto) Urine Bacteria (Auto) Urine Yeast Ur Random Creatinine Ur Random Sodium Nasal Screen MRSA (PCR) Positive A Medications Administered Atorvastatin Calcium (Lipitor) 40 mg PO [facility] Stop: 06/21/19 20:59 Last Admin: 05/28/19 20:23 Dose: 40 mg Documented by: [id number] Admin: 05/27/19 21:37 Dose: 40 mg Documented by: [id number] Admin: 05/26/19 19:50 Dose: 40 mg Documented by: [id number] Admin: 05/25/19 20:40 Dose: 40 mg Documented by: [id number] Admin: 05/24/19 07:59 Dose: 40 mg Documented by: [id number] Admin: 05/23/19 21:57 Dose: Not Given Documented by: [id number] Admin: 05/22/19 19:58 Dose: 40 mg Documented by: [id number] [facility] [place] Protocol Stop: 06/12/19 08:59 Last Admin: 05/29/19 07:40 Dose: 100 mg Documented by: [id number] Admin: 05/28/19 08:04 Dose: 100 mg Documented by: [id number] Admin: 05/27/19 07:47 Dose: 100 mg Documented by: [id number] Admin: 05/26/19 09:53 Dose: 100 mg Documented by: [id number] Admin: 05/25/19 08:44 Dose: 100 mg Documented by: [id number] Daptomycin 400 mg/ Syringe 8 mls @ 0 mls/min IV Q48H [facility]; Protocol Stop: 06/12/19 11:59 Last Admin: 05/29/19 11:11 Dose: 4 mls/min Documented by: [id number] Levalbuterol HCl (Xopenex 0.63 Mg/3 Ml Neb) 0.63 mg NEB Q6R [facility] Stop: 06/22/19 19:59 Last Admin: 05/29/19 06:53 Dose: 0.63 mg Documented by: [id number] Admin: 05/29/19 01:31 Dose: 0.63 mg Documented by: [id number] Admin: 05/28/19 19:11 Dose: 0.63 mg Documented by: [id number] Admin: 05/28/19 14:11 Dose: 0.63 mg Documented by: [id number] Admin: 05/28/19 07:04 Dose: 0.63 mg Documented by: [id number] Admin: 05/28/19 01:53 Dose: 0.63 mg Documented by: [id number] Admin: 05/27/19 19:08 Dose: 0.63 mg Documented by: [id number] Admin: 05/27/19 14:02 Dose: 0.63 mg Documented by: [id number] Admin: 05/27/19 07:26 Dose: 0.63 mg Documented by: [id number] Admin: 05/27/19 02:02 Dose: Not Given Documented by: [id number] Admin: 05/26/19 19:52 Dose: 0.63 mg Documented by: [id number] Admin: 05/26/19 13:55 Dose: 0.63 mg Documented by: [id number] Admin: 05/26/19 07:15 Dose: 0.63 mg Documented by: [id number] Admin: 05/26/19 02:41 Dose: 0.63 mg Documented by: [id number] Admin: 05/25/19 19:32 Dose: 0.63 mg Documented by: [id number] Admin: 05/25/19 14:18 Dose: 0.63 mg Documented by: [id number] Admin: 05/25/19 07:06 Dose: 0.63 mg Documented by: [id number] Admin: 05/25/19 01:42 Dose: 0.63 mg Documented by: [id number] Admin: 05/24/19 18:59 Dose: 0.63 mg Documented by: [id number] Admin: 05/24/19 13:16 Dose: 0.63 mg Documented by: [id number] Admin: 05/24/19 06:50 Dose: 0.63 mg Documented by: [id number] Admin: 05/24/19 01:43 Dose: 0.63 mg Documented by: [id number] Admin: 05/23/19 19:12 Dose: 0.63 mg Documented by: [id number] Lorazepam (Ativan) 0.5 mg PO Q6H PRN PRN Reason: Anxiety Stop: 06/27/19 15:23 Last Admin: 05/28/19 16:23 Dose: 0.5 mg Documented by: [id number] Miscellaneous (Remove Nitro-Dur Patch) 1 ea N/A DAILY@2100 [facility] Stop: 06/26/19 20:59 Last Admin: 05/28/19 20:16 Dose: Not Given Documented by: [id number] Admin: 05/27/19 21:50 Dose: Not Given Documented by: [id number] Multivitamins (Multivitamin Tab) 1 tab PO [facility] Stop: 06/22/19 08:59 Last Admin: 05/29/19 07:41 Dose: 1 tab Documented by: [id number] Admin: 05/28/19 08:04 Dose: 1 tab Documented by: [id number] Admin: 05/27/19 07:47 Dose: 1 tab Documented by: [id number] Admin: 05/26/19 09:53 Dose: 1 tab Documented by: [id number] Admin: 05/25/19 08:44 Dose: 1 tab Documented by: [id number] Admin: 05/24/19 07:59 Dose: 1 tab Documented by: [id number] Admin: 05/23/19 12:34 Dose: 1 tab Documented by: [id number] Nitroglycerin ([place] 0.2mg/Hr) 1 patch TD [facility]; Protocol Stop: 06/26/19 19:59 Last Admin: 05/29/19 10:45 Dose: 1 patch Documented by: [id number] Admin: 05/27/19 21:38 Dose: 1 patch Documented by: [id number] Ondansetron HCl (Zofran) 4 mg IV Q6H PRN PRN Reason: Nausea Stop: 06/21/19 13:29 Last Admin: 05/28/19 19:49 Dose: 4 mg Documented by: [id number] Admin: 05/28/19 11:54 Dose: 4 mg Documented by: [id number] Admin: 05/27/19 10:42 Dose: 4 mg Documented by: [id number] Pantoprazole Sodium (Protonix) 40 mg PO BID [facility] Stop: 06/23/19 20:59 Last Admin: 05/29/19 07:41 Dose: 40 mg Documented by: [id number] Admin: 05/28/19 20:23 Dose: 40 mg Documented by: [id number] Admin: 05/28/19 08:03 Dose: 40 mg Documented by: [id number] Admin: 05/27/19 21:37 Dose: 40 mg Documented by: [id number] Admin: 05/27/19 07:47 Dose: 40 mg Documented by: [id number] Admin: 05/26/19 19:50 Dose: 40 mg Documented by: [id number] Admin: 05/26/19 09:53 Dose: 40 mg Documented by: [id number] Admin: 05/25/19 20:40 Dose: 40 mg Documented by: [id number] Admin: 05/25/19 08:44 Dose: 40 mg Documented by: [id number] Admin: 05/24/19 20:12 Dose: 40 mg Documented by: [id number] Sucralfate (Carafate) 1 gm PO ACHS [facility] Stop: 06/21/19 20:59 Last Admin: 05/29/19 11:10 Dose: 1 gm Documented by: [id number] Admin: 05/29/19 07:55 Dose: Not Given Documented by: [id number] Admin: 05/28/19 20:23 Dose: 1 gm Documented by: [id number] Admin: 05/28/19 16:23 Dose: 1 gm Documented by: [id number] Admin: 05/28/19 11:54 Dose: 1 gm Documented by: [id number] Admin: 05/28/19 08:04 Dose: 1 gm Documented by: [id number] Admin: 05/27/19 21:37 Dose: 1 gm Documented by: [id number] Admin: 05/27/19 18:13 Dose: 1 gm Documented by: [id number] Admin: 05/27/19 11:54 Dose: Not Given Documented by: [id number] Admin: 05/27/19 07:47 Dose: 1 gm Documented by: [id number] Admin: 05/26/19 19:50 Dose: 1 gm Documented by: [id number] Admin: 05/26/19 16:38 Dose: 1 gm Documented by: [id number] Admin: 05/26/19 12:31 Dose: 1 gm Documented by: [id number] Admin: 05/26/19 09:46 Dose: 1 gm Documented by: [id number] Admin: 05/25/19 20:40 Dose: 1 gm Documented by: [id number] Admin: 05/25/19 17:42 Dose: 1 gm Documented by: [id number] Admin: 05/25/19 12:37 Dose: 1 gm Documented by: [id number] Admin: 05/25/19 08:44 Dose: 1 gm Documented by: [id number] Admin: 05/24/19 20:12 Dose: 1 gm Documented by: [id number] Admin: 05/24/19 16:07 Dose: 1 gm Documented by: [id number] Admin: 05/24/19 11:13 Dose: 1 gm Documented by: [id number] Admin: 05/24/19 08:02 Dose: 1 gm Documented by: [id number] Admin: 05/23/19 21:57 Dose: Not Given Documented by: [id number] Admin: 05/23/19 16:30 Dose: Not Given Documented by: [id number] Admin: 05/23/19 12:35 Dose: 1 gm Documented by: [id number] Admin: 05/23/19 12:33 Dose: Not Given Documented by: [id number] Admin: 05/22/19 22:12 Dose: 1 gm Documented by: [id number] Valsartan (Diovan) 320 mg PO QAM [facility] Stop: 06/22/19 08:59 Last Admin: 05/29/19 07:40 Dose: 320 mg Documented by: [id number] Admin: 05/28/19 08:04 Dose: 320 mg Documented by: [id number] Admin: 05/27/19 07:47 Dose: 320 mg Documented by: [id number] Admin: 05/26/19 09:52 Dose: 320 mg Documented by: [id number] Admin: 05/25/19 08:44 Dose: 320 mg Documented by: [id number] Admin: 05/24/19 08:00 Dose: 320 mg Documented by: [id number] Admin: 05/23/19 08:04 Dose: 320 mg Documented by: [id number] Verapamil HCl (Calan Sr) 120 mg PO HS [facility] Stop: 06/21/19 20:59 Last Admin: 05/28/19 20:22 Dose: 120 mg Documented by: [id number] Admin: 05/27/19 21:37 Dose: 120 mg Documented by: [id number] Admin: 05/26/19 19:51 Dose: 120 mg Documented by: [id number] Admin: 05/25/19 20:40 Dose: 120 mg Documented by: [id number] Admin: 05/24/19 20:12 Dose: 120 mg Documented by: [id number] Admin: 05/23/19 21:57 Dose: Not Given Documented by: [id number] Admin: 05/22/19 19:58 Dose: 120 mg Documented by: [id number] PG Care Time/CCT Total # of Minutes Spent Total Time Spent with Patient: Total time spent is greater than 50% in coordination of care (as documented) at patient's floor/unit and/or counseling patient: Critical Care Time: Yes Total Critical Care Time: 50 Resident Activity Tracking Resident Involvement: Resident Care Provided Care Provided: Adult Hospital Medicine (ICU)
[2019-05-29 16:13] LABS: BUN Creatinine Ratio 23.5 (10-20); Calcium 8.5 mg/dl (8.5-10.1); Creatinine Clr Calc Pharmacy 13.8 ml/min; Est GFR (African American) 23.9; Est GFR (Non-African American) 20.6; Potassium 3.9 mmol/L (3.5-5.1)
--- NOTE | 2019-05-29 18:24 | Procedure Note ---
Procedure Note Date of Service May 29, 2019 Procedure Date: Noted above Critical Care Medicine Point of Care Bedside Ultrasound Procedure: Limited Bedside Lung Ultrasound Indication: Hypoxic respiratory failure, bilateral pleural effusions Attending: Anahi Colvin DO Resident/Physician Security And Compliance Analyst: Not applicable Organs Examined: Lung BLUE point (upper), BLUE point (lower), Phrenic Point (axillary), PLAPS point (posterior) A lines visualized: Absent, Hemithorax: Bilateral B lines visualized: Absent, Hemithorax: Bilateral all points Lung Sliding: Present, Hemithorax: Bilateral Tissue-like Sign: Present, Hemithorax: Posterior right lung field Shred Sign: Absent, Hemithorax: Bilateral Quad Sign: Present, Hemithorax: Bilateral posterior lung whittaker Sinusoid Sign: Absent, Hemithorax: Bilateral posterior lung whittaker Type of effusions: Simple, Hemithorax: Bilateral Interpleural distance: 1.5 cm Impression: Global type B lung ultrasound with bilateral simple appearing pleural effusions with maximum interpleural distance of 1.5 cm Images obtained are saved for permanent record Coding CPT Codes Pulmonary/Thoracic - Pulmonary and Thoracic: US, Chest, real time with imaging documentation ([id number])
[2019-05-29] MEDS ORDERED: LORazepam 0.5 MG/1 ML VIAL IV PRN (19:40)
[2019-05-29] MEDS ORDERED: ALBUMIN 25% 50 ML IV ONE (19:44)
[2019-05-29] MEDS ORDERED: BUMETANIDE 1 MG in SYRINGE 0 ML IV ONE (20:00)
[2019-05-29] MEDS ORDERED: ALBUMIN 25% 50 ML with FUROSEMIDE 40 MG IV ONE (20:00)
[2019-05-29] MEDS: ATORVASTATIN 40 MG TAB PO SCH (20:28)
--- NOTE | 2019-05-30 00:25 | Consultation Report ---
DATE OF CONSULTATION: 05/29/2019 REASON FOR CONSULTATION: Bilateral pleural effusions/respiratory distress. HISTORY OF PRESENT ILLNESS: An 89-year-old white female who was admitted through the Emergency Room on 05/22/2019 onto the hospitalist service. The patient [place] independently [place] well as summer and fall. This past July of 2018, family had her moved to [facility] anticipating that at some point in the near future she would not be able to live independently. Apparently since March, she has had problems with acute and chronic urinary tract infection secondary to E.coli. That has been addressed, but on the , she became extremely dyspneic within a few hours of being transported to the ER. She has had pressure sensation in her chest for the 5 days prior to admission. She was seen by Dr. Avni Boston in the ER. Chest x-ray showed cardiomegaly with no acute cardiopulmonary abnormality. There was an epigastric discomfort noted and she had heme positive black stools. She was started on a Protonix drip and initially not transfused. Her H&H was 8.4 and 25.5 at that time. She was admitted onto the hospitalist service by Dr. Michael Richardson and GI consultation was obtained. EKG at that time showed no acute changes. Echocardiogram showed LVEF of 60% and moderate aortic stenosis was noted. Dr. Williamson saw patient in consultation. Apparently, her initial H&H was 11 and 32.1. The patient was placed on a clear liquid diet and kept n.p.o. and transfused to maintain an H&H above 8 and 24. An upper endoscopy was carried out on the . On referring to that notation, there were whitish plaques found along the entire esophagus and brushings were obtained. The patient was seen by Dr. Oconnor on the . 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 She suffers from hypertension and dyslipidemia. The care was taken over by Dr. Derick Trammell. The patient complained of shortness of breath on the and patient was also seen by Dr. Hinds. She was placed on a short trial of BiPAP, which is helpful and seen by Dr. Hinds on the . IV Lasix was administered along with BiPAP and 40% FiO2. She was hypertensive, but that seemed to control it. Interstitial pulmonary edema with suspected small bilateral pleural effusions was noted the following day from admission. The patient was also treated for esophageal candidiasis with Diflucan. She was felt to have symptoms of angina pectoris, moderate aortic stenosis was diagnosed. It was felt that she develops CHF from vigorous hydration along with transfusion. She remained dyspneic, despite aggressive diuresis. The patient had significantly improved by the according to Dr. Hinds's note. The patient was then seen by infectious disease on with blood cultures obtained this weekend were gram positive cocci. The patient was initially started on IV vancomycin and then switched at recommendation by Dr. Lai to IV daptomycin. The patient had a low grade fever. Sed rate was 66 and procalcitonin was mildly elevated. Dr. Carias has taken over the care of this patient and nephrology was asked to see patient in consultation who felt that her clinical presentation was consistent with ATN associated with acute on chronic CHF, medications and iodinated contrast. She was nonoliguric, no sign of obstruction. Endocarditis was entertained given the positive blood cultures for fever and history of aortic stenosis. I was asked to see patient in consultation. At bedside, patient's daughter and son. The CTA done on the showed no evidence of pulmonary thromboembolic disease, cardiomegaly with evidence of CHF, moderate pleural effusions bilaterally with associated atelectasis and mildly enlarged mediastinal lymph nodes were nonspecific but present. Venous Doppler study showed no evidence of DVT and chest x-ray today continues to show pulmonary edema and bilateral pleural effusions again or at least moderate in nature. LABORATORY DATA: White count on admission has been anywhere from 20,000 to currently 18,750 cells. Posttransfusion, her H&H came up to 12 and 35 and is now 11.2 and 33. ABGs on 8 liters on admission pH 7.48, pCO2 of 26, pO2 of 88, BUN 46, creatinine 2.21, MRSA screen positive today and 2 sets blood cultures positive for gram positive cocci. PHYSICAL EXAMINATION: GENERAL: Reveals an elderly tachypneic and dyspneic white female in moderate respiratory distress, using accessory muscles of respiration. VITAL SIGNS: Blood pressure 157/86, pulse 93 and regular, respiratory rate 34, temperature 36.5, O2 sat 99% on BIPAP/50% FIO2. SKIN: Without lesion. HEENT: Atraumatic, normocephalic, PERRLA, EOMI. Conjunctivae pale. Sclerae nonicteric. Fundi poorly visualized. NECK: Neck veins are distended at 3 cm above the jugular notch at 45 degrees. No carotid bruits. LUNGS: Decreased breath sounds with dullness one-thirds to two-thirds way up bilaterally with rales audible. CARDIAC: Regular rate and rhythm. I do not appreciate a gallop. Grade 2/6 systolic murmur heard in the aortic area, left lower sternal border. ABDOMEN: Soft, protuberant. No evidence of hepatosplenomegaly. EXTREMITIES: Trace pedal edema. No clubbing. Peripheral cyanosis. NEUROLOGICAL: Intact. No lateralizing signs. LAB DATA: As noted. See HPI. OVERALL ASSESSMENT: An 89-year-old presents with marked anemia. Transfused presumably with the drop in H&H from esophageal candidiasis and although cannot rule out other etiology with limited workup at this point in time. 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 Suspect an element of renal failure secondary to the contrast given during the CTA. The patient is on appropriate antibiotics. I have asked that she be transferred to the unit under the care of the flex o writer operator, Dr. Eric Colvin as she may very well require intubation and mechanical ventilator assistance. In addition, a diagnostic and therapeutic thoracentesis may need to be carried out to alleviate some of her dyspnea. I have spoken at length with the family who feels as I do after discussing their mother's care and clinical course, then an aggressive approach should be followed given that she was fairly independent less than a year from this admission and fairly independent while residing at [facility].
[2019-05-30] MEDS: LEVALBUTEROL HCL 0.63 MG/3 ML NEB NEB SCH ×4 (01:57→19:09)
[2019-05-30] MEDS ORDERED: ALBUMIN 25% 50 ML IV ONE (02:53)
[2019-05-30] MEDS ORDERED: BUMETANIDE 1 MG in SYRINGE 0 ML IV ONE (03:00)
[2019-05-30] MEDS ORDERED: MoRPHine SULFATE 2 MG/ML CARP IV STA (04:12)
--- NOTE | 2019-05-30 04:32 | Critical Care Progress Note ---
Date of Service May 30, 2019 Subjective At approximately 0400, patient noted to have increasing work of breathing. On assessment, the patient is having poor tidal volumes on BiPAP. Settings were increased. While this did help with oxygenation somewhat, the patient still has increasing work of breathing and I am generally concerned for risk of respiratory arrest. Orders are placed for repeat labs to be performed emergently. Repeat ABG was ordered. Review of ABG demonstrates no significant findings, however patient is worsened with her respiratory status with respiratory rate in the 40s and increasing sensory muscle use. Because of this, and window of opportunity for safely performing intubation with a favorable hemodynamics at this time, decision was made to proceed with emergent endotracheal intubation. 0428: Called Daughter, Malena ([phone]) and updated with current situation. She is comfortable with proceeding with emergent intubation in the setting of worsening respiratory failure. Results & Data Vital Signs (Past 12 Hours) Vital Signs Temp Pulse Pulse Resp BP BP BP 05/30/19 04:00 109 H 27 H 181/77 H 181/77 H 05/30/19 03:00 102 H 31 H 163/68 H 163/68 H 05/30/19 02:20 97 H 35 H 05/30/19 02:00 97 H 25 H 154/80 H 154/80 H 05/30/19 01:00 95 H 33 H 152/66 H 152/66 H 05/30/19 00:00 36.9 C 103 H 36 H 139/60 139/60 05/29/19 23:00 93 H 25 H 143/71 H 143/71 H 05/29/19 22:00 91 H 25 H 147/64 H 147/64 H 05/29/19 21:00 75 21 136/55 L 136/55 L 05/29/19 20:00 36.9 C 83 20 133/69 133/69 05/29/19 19:45 83 18 05/29/19 19:42 83 18 05/29/19 19:00 36.6 C 87 26 H 139/61 139/61 05/29/19 18:00 89 26 H 153/67 H 05/29/19 17:00 86 24 144/58 H Pulse Ox 05/30/19 04:00 91 05/30/19 03:00 96 05/30/19 02:20 98 05/30/19 02:00 96 05/30/19 01:00 97 05/30/19 00:00 91 05/29/19 23:00 95 05/29/19 22:00 98 05/29/19 21:00 97 05/29/19 20:00 98 05/29/19 19:45 97 05/29/19 19:42 97 05/29/19 19:00 99 05/29/19 18:00 98 05/29/19 17:00 100 PG Care Time/CCT Total # of Minutes Spent Total Time Spent with Patient: Total time spent is greater than 50% in coordination of care (as documented) at patient's floor/unit and/or counseling patient: Critical Care Time: Yes Total Critical Care Time: 60
[2019-05-30] MEDS ORDERED: RAPID SEQUENCE INDUCTION BAG ONE (04:35)
[2019-05-30 04:37] LABS: iSTAT Allen Test Pass; iSTAT Art Bld Gas pCO2 Correct 50 mmHg (35-46); iSTAT Art Bld Gas pH Corrected 7.296 (7.35-7.45); iSTAT Arterial Blood Gas HCO3 25 meg/L (19-24); iSTAT Arterial Blood Gas pCO2 51 mmHg (35-46); iSTAT Arterial Blood Gas pH 7.29 (7.35-7.45); iSTAT Carbon Dioxide 26 mEq/l (24-31); iSTAT FiO2 16 %; iSTAT Site R Radial
[2019-05-30] MEDS ORDERED: MIDAZOLAM HCL 1 MG/ML 2ML VIAL ONE (04:40)
[2019-05-30 04:52] LABS: Hematocrit (blood only) 34.4 % (37-47); Hemoglobin 11.8 g/dL (12.0-16.0); Mean Corpuscular Volume 87.8 fL (80-100); Platelet Count 341 K/uL (130-400); RDW Coefficient of Variation 14.1 % (11.5-14.5); RDW Standard Deviation 44.9 fL (36.4-46.3); Red Blood Count 3.92 M/uL (4.2-5.4); White Blood Count 18.15 K/uL (4.8-10.8)
--- NOTE | 2019-05-30 05:00 | Procedure Note ---
Procedure Note Date of Service May 30, 2019 APC: Shen Cabrera PA-C. Attending: Dr. Colvin A time-out was completed verifying correct patient, procedure, site, positioning. Patient was evaluated and required intubation for respiratory failure with increasing oxygen requirement and work of breathing with impending respiratory collapse. Sedative agent used: Etomidate Paralysis agent used: None Emergent consent was implied given patients rapidly declining clinical status and need for airway protection. Upon reevaluation, the patient is having progressive work of breathing and requiring increasing FiO2 as well as positive pressure support. Patient is in CHF with worsening respiratory failure. Patient is progressing towards respiratory collapse and requires emergent intubation. Emergent consent implied. Did speak with patient's daughter, Malena, prior to performing intubation. She is in agreement. The patient was prepared in the appropriate fashion. Sedation was achieved utilizing Etomidate, per Dr. Boston administration. The patient was easily ventilated using [id number] to achieve adequate oxygenation. A 7.5 Guinean endotracheal tube was placed using the GlideScope to 23 cm at the lip. The stylette was removed and balloon was inflated with 10mL of air. Appropriate Colorimetric change was appreciated. Bilateral breath sounds were heard without air sounds in the abdomen. SaO2 remained above 95% throughout entire procedure. Dr. Boston was present for the entire procedure. Post Intubation Chest X-ray confirms placement without pneumothorax. Appropriate tube positioning observed. Patient tolerated the procedure well and there were no immediate complications. Coding CPT Codes Resuscitation - Resuscitation: Endotracheal Intubation, emergency ([id number])
[2019-05-30 05:08] LABS: BUN Creatinine Ratio 26.7 (10-20); Calcium 8.7 mg/dl (8.5-10.1); Creatinine Clr Calc Pharmacy 14.5 ml/min; Est GFR (African American) 25.3; Est GFR (Non-African American) 21.9; Magnesium 2.2 mg/dl (1.8-2.4); Mean Corpuscular Hgb Conc 34.3 g/dL (32-36)
[2019-05-30 05:11] LABS: Phosphorus 5.9 mg/dl (2.5-4.9)
--- NOTE | 2019-05-30 05:15 | Emergency Department Note ---
ED Visit Note ED Night Physician Supervising CCM Procedure Note: Called to ICU to assist in intubation of 89 yr old female with worsening respiratory status from CHF. She is on bipap and not tolerating well. Plan for intubation and his seems reasonable. Family apparently aware and on board. Shen Cabrera PA-C at bedside with intubation equipment. Patient already received some ativan prior to my arrival. Per my direction, Etomidate 10mg IV given. Patient then intubated without difficulty by Rick HARLEY. Breath sounds bilateral and sats OK. Patient given further fentanyl 50mcg IV and Versed 2mg IV for post intubation sedation. Avni Boston MD
[2019-05-30 05:26] LABS: Phosphorus 5.8 mg/dl (2.5-4.9); Troponin I 0.293 ng/ml (0-0.045)
--- NOTE | 2019-05-30 05:56 | Procedure Note ---
Procedure Note Date of Service May 30, 2019 Procedure: Arterial Line Placement Attending: Dr. Colvin APC: Shen Cabrera PA-C Indication: Monitoring on Pressors Anesthesia: None Emergent consent implied in the setting of respiratory failure and need for frequent ABGs, recurrent labs, and close monitoring from a hemodynamic standpoint. A time-out was completed verifying correct patient, procedure, site, positioning, and implant(s) or special equipment if applicable. Allens test was performed to ensure adequate perfusion. Patients RIGHT wrist was prepped and draped in the usual sterile fashion. Patient had a bounding radial pulse on palpation. A 20g Arrow arterial line was introduced into the RIGHT radial artery. Catheter was threaded, and the needle was removed with appropriate blood return. Good waveform was observed. The patient tolerated the procedure well. Blood Loss: Minimal Complications: None Procedural Ultrasound Guidance: Procedure Date: 05/30/2019 Indication: ABGs, Lab Draws, Pressors Attending: Dr. Colvin APC: Shen Cabrera PA-C Coding CPT Codes Tubes, Drains, and Vasc Access - Tubes, Drains, and Vasc Access: Place Catheter In Artery ([id number])
[2019-05-30] MEDS: BUMETANIDE 10 MG in DEXTROSE 5% 10 ML IV SCH ×2 (06:25→15:49)
--- NOTE | 2019-05-30 06:38 | XRay Report ---
XR chest 1V portable HISTORY: 89 years-old Female S/P ETT OGT acute respiratory distress COMPARISON: Chest radiograph 05/29/2019 TECHNIQUE: Portable AP view of the chest FINDINGS: Cardiac silhouette is enlarged, unchanged. Calcification of the thoracic aortic arch. No pneumothorax . Unchanged bilateral pleural effusions with bibasilar opacities. Pulmonary vascular congestion with pulmonary edema pattern of disease redemonstrated. Slightly improved aeration of the right greater th an left lung bases. Degenerative changes of the shoulders and spine. Endotracheal tube has been place d, terminating 3.9 cm superior to the bobo. An enteric tube is noted coursing below the diaphragm o utside the [id number]. IMPRESSION: 1. Cardiomegaly with persistent pulmonary edema. There is slightly improved aeration of the lung base s. 2. Bilateral pleural effusions with bibasilar opacities redemonstrated. 3. Endotracheal tube terminates 3.9 cm superior to the bobo. The above report was generated using voice recognition software. It may contain grammatical, syntax o r spelling errors. Electronically signed by: Ronnie Howell M.D. 05/30/2019 6:36 AM
[2019-05-30] MEDS: fentaNYL citrate 100 MCG/2 ML VIAL IV PRN ×5 (07:19→22:57)
[2019-05-30] MEDS ORDERED: TOLVAPTAN 15 MG TABLET PO SCH (07:40)
--- NOTE | 2019-05-30 08:02 | Critical Care Progress Note ---
Date of Service May 30, 2019 Assessment & Plan (1) Admitted to intensive care unit: Nighat Greene is a 89 y/o female who presents to ICU for worsening respiratory status from pulmonary edema in setting of acute kidney injury and oliguria, with possible need for thoracentesis intervention. Neuro: CAM negative - Tylenol 650mg q4h PRN for pain/fever - Lorazepam 0.5mg q6h PRN for anxiety Cardiac/Vascular: PMHx: HTN, HLD - currently stable hemodynamics. - NTG patch for chest discomfort - hold home anti-HTNs - Echocardiogram performed showed LV normal systolic function; no regional wall abnormalities; mild concentric LVH; EF 55-60%; moderate aortic stenosis Pulm: - continue with non-invasive BiPAP - bedside US performed for considerations for thoracentesis, but appears transudative - Xopenex 0.63mg neb q6h GI: PPx - Protonix 40mg BID; sucralfate 1gm qACHS Zofran for nausea continue with home multivitamin okay Renal/lytes: - elevated creatinine <1 to 1.20 (05/28) to 2.21 in setting of diuresis to improve pulmonary edema, trended down to 1.98 (05/30) - nephro consulted : underwood cath strict I/Os Endo: No hx of DM or thyroid disease Heme: - Leukocytosis of 18.75 on transfer to ICU, presented with value approx 15 that peaked to 20. No sigificant improvement in value 18.15. - Hgb stable - Platelets WNL ID: - positive blood cultures on 05/28 for alpha strep (not enterococcus); 05/29 blood cultures positive for gram positive cocci in chains, 05/29 staph aureus. Repeat blood cultures ordered for AM - continue with daptomycin IV Also treated for esophageal candidiasis with Diflucan 100mg qAM with completion of 7 day course today that would be completed tomorrow - ID consult placed DVT ppx:SCDs Resuscitation status: Full Code Supervising Physician Co-Signing Physician Notes Dr. Noland was resident physician during care of patient. I separately evaluated patient for perdomo portions of the history and the exam. I was present during the critical portion of medical decision making, and I discussed the case with the resident. I generally agree with the findings and plan. Worsening hypoxic respiratory failure, I discussed the case with Dr. rasheed of nephrology as well as Dr. Oconnor. Had extensive discussion with the patient's daughter and they will repeat the discussion with the patient's son, as we continue to aggressively diurese for now having blood pressure issues and what appears to be low preload state. Despite this she is still third spacing fluid into the lungs, And I believe this is directly attributable to hypoalbuminemia and poor nutritional status with Sarcopenia. I have personally spent 50 minutes of critical care time in the direct management of this patient. This is a life/limb threatening event. This includes time spent evaluating patient, direct bedside care, chart review, placing orders, interpretation of diagnostic studies, discussion with consultants, patient, and/or family members regarding treatment decisions, as well as other required patient management activities. This time is exclusive of all separately billable procedures, and teaching time and separate from and in addition to any other critical care service time. Subjective Caveat: History limited by sedation and on ventilator. Per overnight report, patient's respiratory status worsened requiring intubation. No signs of bleeding. She was placed on Bumex drip. Review of Systems Review of Systems: Unobtainable due to endotracheal tube Physical Exam Constitutional: + ill appearing Neck: trachea midline Respiratory: no respiratory distress Auscultation: + diminished lung sounds (at bases bilaterally) and + crackles (at bases bilaterally) Cardiovascular: Rate/Rhythm: regular rate and regular rhythm Extremities: no edema Musculoskeletal: Head/Neck/Chest: normocephalic and head atraumatic Skin: no rashes, warm and dry Results & Data Vital Signs (Past 12 Hours) Vital Signs Temp Pulse Pulse Resp BP BP Pulse Ox 05/30/19 06:00 77 16 106/43 L 123/21 L 99 05/30/19 05:00 36.8 C 91 H 28 H 133/58 L 133/43 L 92 05/30/19 04:40 81 17 100 05/30/19 04:00 109 H 27 H 181/77 H 181/77 H 91 05/30/19 03:00 102 H 31 H 163/68 H 163/68 H 96 05/30/19 02:20 97 H 35 H 98 05/30/19 02:00 97 H 25 H 154/80 H 154/80 H 96 05/30/19 01:00 95 H 33 H 152/66 H 152/66 H 97 05/30/19 00:00 36.9 C 103 H 36 H 139/60 139/60 91 05/29/19 23:00 93 H 25 H 143/71 H 143/71 H 95 05/29/19 22:00 91 H 25 H 147/64 H 147/64 H 98 05/29/19 21:00 75 21 136/55 L 136/55 L 97 PG Care Time/CCT Total # of Minutes Spent Total Time Spent with Patient: Total time spent is greater than 50% in coordination of care (as documented) at patient's floor/unit and/or counseling patient: Critical Care Time: Yes Total Critical Care Time: 50
[2019-05-30] MEDS: SUCRALFATE 1 GM/10 ML UDC PO SCH ×4 (09:21→20:35)
[2019-05-30] MEDS: MIDAZOLAM HCL 1 MG/ML 2ML VIAL IV PRN ×2 (09:21→11:36)
[2019-05-30] MEDS: NOREPINEPHRINE BIT INJ 8 MG in DEXTROSE 5% 500 ML IV SCH (09:46)
[2019-05-30] MEDS: NITROGLYCERIN 0.2 MG/HR PATCH TD SCH (09:47)
[2019-05-30] MEDS ORDERED: FLUCONAZOLE 100 MG TAB PO SCH (10:00)
[2019-05-30] MEDS ORDERED: CHLOROTHIAZIDE SODIUM 500 MG in DEXTROSE 5% 50 ML IV ONE (10:15)
--- NOTE | 2019-05-30 11:20 | Cardiology Progress Note ---
Date of Service May 30, 2019 Assessment & Plan (1) Acute respiratory failure with hypoxia: Patient now sedated and intubated in the intensive care unit. Decompensation likely related to CHF. Currently on IV Bumex drip. (2) Acute on chronic diastolic CHF (congestive heart failure): Decompensated at this time. Diuretic management per Dr. Gaviria. (3) Aortic stenosis: Her aortic valve stenosis is moderate in degree. (4) Gram positive sepsis: Unfortunately, with her aortic valve stenosis, we should presumed the patient has endocarditis. Would recommend a longer course of antibiotics. LILIAN may be difficult and would not alter our course of therapy. (5) Essential hypertension: Normal intensive at this time. (6) Hypercholesterolemia: Continue atorvastatin. Subjective The patient is sedated and intubated in the intensive care unit. Her daughter is at the bedside. All of the daughter's questions were answered. Physical Exam Physical Exam: In general is a well-developed well-nourished white female seated at the bedside without complaints. HEENT exam is notes an ET tube in place. Neck is supple with full carotid upstrokes. A transmitted murmur is noted bilaterally. Jugular venous pressure is difficult to assess. There is no thyromegaly. Cardiovascular exam reveals a regular rhythm with a 2/6 crescendo decrescendo systolic murmur is heard loudest at the base. S2 is audible at the apex. Lungs are clear without rales, rhonchi, wheezes. Abdomen is soft nontender without bruits. Extremities reveal intact radial artery pulses bilaterally. There is no peripheral edema. Results & Data Vital Signs (Past 12 Hours) Vital Signs Temp Pulse Pulse Resp BP BP BP 05/30/19 10:39 79 17 05/30/19 09:00 75 128/48 L 05/30/19 08:01 79 16 05/30/19 08:00 36.9 C 76 118/42 L 05/30/19 07:00 79 120/53 L 05/30/19 06:00 77 16 106/43 L 123/21 L 05/30/19 05:00 36.8 C 91 H 28 H 133/58 L 133/43 L 05/30/19 04:40 81 17 05/30/19 04:00 109 H 27 H 181/77 H 181/77 H 05/30/19 03:00 102 H 31 H 163/68 H 163/68 H 05/30/19 02:20 97 H 35 H 05/30/19 02:00 97 H 25 H 154/80 H 154/80 H 05/30/19 01:00 95 H 33 H 152/66 H 152/66 H 05/30/19 00:00 36.9 C 103 H 36 H 139/60 139/60 Pulse Ox 05/30/19 10:39 99 05/30/19 09:00 100 05/30/19 08:01 98 05/30/19 08:00 100 05/30/19 07:00 100 05/30/19 06:00 99 05/30/19 05:00 92 05/30/19 04:40 100 05/30/19 04:00 91 05/30/19 03:00 96 05/30/19 02:20 98 05/30/19 02:00 96 05/30/19 01:00 97 05/30/19 00:00 91 Diagnostic Findings metal moulder notes occasional PACs and PVCs.
[2019-05-30] MEDS ORDERED: FLUCONAZOLE 100 MG/50 ML BAG IV ONE (12:00)
[2019-05-30] MEDS: MULTIVITAMIN TAB PO SCH (12:05)
[2019-05-30] MEDS: PANTOprazole 40 MG TAB PO SCH (12:05)
--- NOTE | 2019-05-30 13:40 | Infectious Disease Progress Nt ---
Date of Service May 30, 2019 Assessment & Plan (1) Gram positive sepsis: will repeat blood cultures again today and continue dapto pending additional micro data. If today's cultures + as well would suggest repeat echo to r/o IE, agree she would be poor candidate for LILIAN. follow culture results. Agree she will need prolonged course of IV abx for suspected IE and . Unclear source, GI, oral, no signs of skin/soft tissue infection. Will repeat blood cultures x 2 and follow results. Final abx plan will depend on ID/sensitivity, echo findings, etc. will follow. Subjective pt was transferred to ICU yesterday and intubated due to fluid overload/CHF. Afebrile overnight. Remains on Dapto, creat improved to 1.9. wbc 18. UA >30 wbc, no bacteria noted. CXR today with b/l effusions.05/28 blood cultures growing alpha strep, not Enterococcus. Repeat blood cultures from 05/29 - 11/04 bottles gpc in chains. No pressors. Sedated on vent during my exam, unable to obtain ros. tolerating abx. had TTE on admission, no veg noted. Review of Systems Review of Systems: Unobtainable due to endotracheal tube Physical Exam Constitutional: WD/WN, vitals as above + ill appearing and + cachectic Eyes: PERRL, conjunctivae normal, anicteric sclerae ENMT: external ear and nose normal, oropharynx normal Neck: normal visual inspection Respiratory: normal respiratory effort, lungs clear to auscultation Auscultation: + diminished lung sounds Cardiovascular: RRR, no murmur, no edema Extremities: no pedal edema Gastrointestinal (Abdomen): normal bowel sounds, soft, nontender, no hepatosplenomegaly Musculoskeletal: no cyanosis or clubbing, extremities motor strength 5/5 Skin: no rashes, warm and dry Psychiatric: A+Ox3, euthymic affect Results & Data Vital Signs (Past 12 Hours) Vital Signs Temp Pulse Pulse Resp BP BP BP 05/30/19 13:00 73 123/59 L 05/30/19 12:00 37.4 C 78 121/54 L 05/30/19 11:00 73 124/48 L 05/30/19 10:39 79 17 05/30/19 10:00 77 130/51 L 05/30/19 09:00 75 128/48 L 05/30/19 08:01 79 16 05/30/19 08:00 36.9 C 76 118/42 L 05/30/19 07:00 79 120/53 L 05/30/19 06:00 77 16 106/43 L 123/21 L 05/30/19 05:00 36.8 C 91 H 28 H 133/58 L 133/43 L 05/30/19 04:40 81 17 05/30/19 04:00 109 H 27 H 181/77 H 181/77 H 05/30/19 03:00 102 H 31 H 163/68 H 163/68 H 05/30/19 02:20 97 H 35 H 05/30/19 02:00 97 H 25 H 154/80 H 154/80 H Pulse Ox 05/30/19 13:00 98 05/30/19 12:00 98 05/30/19 11:00 98 05/30/19 10:39 99 05/30/19 10:00 100 05/30/19 09:00 100 05/30/19 08:01 98 05/30/19 08:00 100 05/30/19 07:00 100 05/30/19 06:00 99 05/30/19 05:00 92 05/30/19 04:40 100 05/30/19 04:00 91 05/30/19 03:00 96 05/30/19 02:20 98 05/30/19 02:00 96 Laboratory Results Microbiology 05/29/19 10:53 Blood Aerobic Blood Culture - Preliminary Gram positive cocci in chains 05/29/19 10:53 Blood Anaerobic Blood Culture - Preliminary No growth in Anaerobic bottle after 24 hours. 05/29/19 11:00 Blood Aerobic Blood Culture - Preliminary Gram positive cocci in chains 05/29/19 11:00 Blood Anaerobic Blood Culture - Preliminary No growth in Anaerobic bottle after 24 hours. 05/29/19 11:07 Urine,Indwelling Cath Urine Culture - Preliminary Staphylococcus aureus 05/28/19 14:05 Blood Aerobic Blood Culture - Preliminary Alpha strep. not enterococcus 05/28/19 14:05 Blood Anaerobic Blood Culture - Preliminary Alpha strep. not enterococcus 05/28/19 13:57 Blood Aerobic Blood Culture - Preliminary Alpha strep. not enterococcus 05/28/19 13:57 Blood Anaerobic Blood Culture - Preliminary Alpha strep. not enterococcus 05/23/19 10:15 Throat Fungal Smear - Final 05/23/19 10:15 Throat Fungal Culture - Final Cate albicans 05/22/19 11:17 Urine,Clean Catch Urine Culture - Final More than three types of organisms present, all high counts mixed probable skin natalie - No further identifications or sensitivities to follow.
[2019-05-30] MEDS: LORazepam 1 MG/2 ML VIAL IV PRN ×2 (14:48→19:58)
--- NOTE | 2019-05-30 15:05 | Nephrology Progress Note ---
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 This is an ongoing conversation. (2) MARTINEZ (dyspnea on exertion): -- Continue diuretics -- Remains on bumex gtt -- IV diuril provided this morning (3) GI bleed: -- EGD on 05/23 showed esophagitis consistent with candidiasis along with gastritis -- PPI PO BID -- Fluconazole for esophageal candidiasis (4) Essential hypertension: -- Hold HCTZ and valsartan Subjective Intubated overnight. Seen and evaluated in the ICU this morning with her son and daughter at the bedside. Plan of care discussed with Dr. Colvin and Dr. Oconnor this morning. Review of Systems Review of Systems: Unobtainable due to endotracheal tube Physical Exam Constitutional: + frail appearing; no acute distress intubated Eyes: no scleral abnormality and no corneal abnormality ENMT: ETT Neck: normal visual inspection and trachea midline Respiratory: Auscultation: + diminished lung sounds, + rales and + rhonchi apical sounds are clear with basilar rales and rhonchi in the right base, wheezing noted predominately in the bases Cardiovascular: Rate/Rhythm: regular rate and regular rhythm Heart Sounds: normal S1 and normal S2 Vessels: + JVD Extremities: no edema Gastrointestinal (Abdomen): Percussion/Palpation: abdomen soft; abdomen nontender Musculoskeletal: Extremities: no cyanosis and no clubbing Skin: + turgor decreased; no rashes Neurologic: Motor/Sensory: no tremor and no asterixis Psychiatric: sedated Genitourinary: Benitez draining yellow urine Results & Data Vital Signs (Past 12 Hours) Vital Signs Temp Pulse Pulse Resp BP BP BP 05/30/19 14:38 73 16 05/30/19 14:00 72 05/30/19 13:00 73 123/59 L 05/30/19 12:00 37.4 C 78 121/54 L 05/30/19 11:00 73 124/48 L 05/30/19 10:39 79 17 05/30/19 10:00 77 130/51 L 05/30/19 09:00 75 128/48 L 05/30/19 08:01 79 16 05/30/19 08:00 36.9 C 76 118/42 L 05/30/19 07:00 79 120/53 L 05/30/19 06:00 77 16 106/43 L 123/21 L 05/30/19 05:00 36.8 C 91 H 28 H 133/58 L 133/43 L 05/30/19 04:40 81 17 05/30/19 04:00 109 H 27 H 181/77 H 181/77 H Pulse Ox 05/30/19 14:38 98 05/30/19 14:00 98 05/30/19 13:00 98 05/30/19 12:00 98 05/30/19 11:00 98 05/30/19 10:39 99 05/30/19 10:00 100 05/30/19 09:00 100 05/30/19 08:01 98 05/30/19 08:00 100 05/30/19 07:00 100 05/30/19 06:00 99 05/30/19 05:00 92 05/30/19 04:40 100 05/30/19 04:00 91 Laboratory Results Laboratory Results - last 24 hr 05/29/19 05/30/19 05/30/19 15:39 04:23 04:33 WBC RBC Hgb Hct MCV MCH MCHC RDW Std Deviation RDW Coeff of Sean Plt Count MPV Sample Site R Radial POC pH 7.29 L POC pCO2 51 H POC pO2 78 L POC HCO3 25 H POC Total CO2 26 POC Base Excess -2.0 ABG pH (Temp Correct) 7.296 L ABG pCO2 (Temp Corrct 50 H POC ABG pO2 at Pt Temp 75 POC ABG O2 Sat 94.0 Dieudonne Test Pass O2 Delivery Device BIPAP POC O2 Rate 16 POC FiO2 16 IPAP 5 Sodium 125 L 125 L Potassium 3.9 4.0 Chloride 91 L 89 L Carbon Dioxide 23 23 Anion Gap 11.0 13.0 H BUN 49 H 53 H Creatinine 2.08 H 1.98 H Est Cr Clr Drug Dosing 13.8 14.5 Est GFR ( Amer) 23.9 25.3 Est GFR (Non-Af Amer) 20.6 21.9 BUN/Creatinine Ratio 23.5 H 26.7 H Glucose 103 H 137 H POC Glucose Calcium 8.5 8.7 Phosphorus 5.9 H Magnesium 2.2 Total Creatine Kinase 46 Troponin I Albumin 3.0 L Procalcitonin Random Vancomycin 05/30/19 05/30/19 05/30/19 04:33 04:33 04:33 WBC 18.15 H RBC 3.92 L Hgb 11.8 L Hct 34.4 L MCV 87.8 MCH 30.1 MCHC 34.3 RDW Std Deviation 44.9 RDW Coeff of Sean 14.1 Plt Count 341 MPV 10.0 Sample Site POC pH POC pCO2 POC pO2 POC HCO3 POC Total CO2 POC Base Excess ABG pH (Temp Correct) ABG pCO2 (Temp Corrct POC ABG pO2 at Pt Temp POC ABG O2 Sat Dieudonne Test O2 Delivery Device POC O2 Rate POC FiO2 IPAP Sodium Potassium Chloride Carbon Dioxide Anion Gap BUN Creatinine Est Cr Clr Drug Dosing Est GFR ( Amer) Est GFR (Non-Af Amer) BUN/Creatinine Ratio Glucose POC Glucose Calcium Phosphorus 5.8 H Magnesium Total Creatine Kinase Troponin I 0.293 H* Albumin Procalcitonin Random Vancomycin 9.7 05/30/19 05/30/19 05/30/19 04:33 04:33 12:22 WBC RBC Hgb Hct MCV MCH MCHC RDW Std Deviation RDW Coeff of Sean Plt Count MPV Sample Site POC pH POC pCO2 POC pO2 POC HCO3 POC Total CO2 POC Base Excess ABG pH (Temp Correct) ABG pCO2 (Temp Corrct POC ABG pO2 at Pt Temp POC ABG O2 Sat Dieudonne Test O2 Delivery Device POC O2 Rate POC FiO2 IPAP Sodium Potassium Chloride Carbon Dioxide Anion Gap BUN Creatinine Est Cr Clr Drug Dosing Est GFR ( Amer) Est GFR (Non-Af Amer) BUN/Creatinine Ratio Glucose POC Glucose 95 Calcium Phosphorus Magnesium Total Creatine Kinase Troponin I Cancelled Albumin Procalcitonin 0.45 Random Vancomycin
[2019-05-30] MEDS ORDERED: MIDAZOLAM HCL 5 MG/ML 1 ML VIAL IV ONE (15:34)
[2019-05-30] MEDS ORDERED: ETOMIDATE 2 MG/ML 20 ML VIAL IV ONE (15:34)
[2019-05-30] MEDS ORDERED: fentaNYL citrate 100 MCG/2 ML CARP IV ONE (15:34)
[2019-05-30 16:28] LABS: Albumin Level 2.4 gm/dl (3.4-5.0); BUN Creatinine Ratio 31.3 (10-20); Bilirubin Direct 0.2 mg/dl (0-0.2); Bilirubin,Total 0.5 mg/dl (0.2-1); Calcium 8.4 mg/dl (8.5-10.1); Creatinine Clr Calc Pharmacy 15.2 ml/min; Est GFR (African American) 26.8; Est GFR (Non-African American) 23.1; Potassium 3.4 mmol/L (3.5-5.1); Total Protein 5.5 gm/dl (6.4-8.2)
[2019-05-30] MEDS ORDERED: POTASSIUM CHLORIDE PWD 20 MEQ PACK PO STA (16:40)
[2019-05-30] MEDS ORDERED: CHLOROTHIAZIDE SODIUM 500 MG in DEXTROSE 5% 50 ML IV STA (16:41)
--- NOTE | 2019-05-30 19:31 | Hospitalist Progress Note ---
Date of Service May 30, 2019 Assessment & Plan (1) Septicemia: Presented with progressive fatigue and dyspnea since the end of March, but no reports of fevers. 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 -Started IV vancomycin but then infectious disease switched her to IV daptomycin given renal failure -Consult infectious disease-appreciate recommendations -Is not able to withstand a LILIAN at this time due to severe respiratory distress requiring intubation as below-discussed with cardiology -Would likely just treat empirically with 4 to 6 weeks of IV antibiotics -Follow blood cultures until sterile (2) Acute respiratory failure with hypoxia: Secondary to acute on chronic diastolic CHF, with bilateral pleural effusions and pulmonary edema worsening on chest x-ray on 05/29 On the morning of 05/30, she continued to be in significant respiratory distress and developed worsening acute hypercapnic and hypoxic respiratory failure despite being on BiPAP-was intubated and mechanically ventilated Chest x-ray is slightly improved with less pulmonary edema today -Continue diuresis now with Bumex drip and Diuril -Continued stay in the ICU-appreciate critical care management -Follow chest x-ray in the morning (3) Acute on chronic diastolic CHF (congestive heart failure): Has had progressive dyspnea on exertion over the last 2 months, much worse in the last week prior to admission, and then significantly worse since receiving PRBC transfusion for anemia Echocardiogram with moderate aortic stenosis with preserved EF Question if this is been exacerbated by her septicemia and perhaps by suspected infective endocarditis She had multiple doses of IV Lasix and was still requiring BiPAP and eventually mechanical ventilation as above Continues with acute kidney injury and oliguria although this is improving today -Received 1 dose of IV albumin x1 as per dance artist on 05/29 -Continue Bumex drip, intermittent diarrheal -Follow I's and O's, daily weights -Appreciate cardiology consultation and critical care management (4) ZAC (acute kidney injury): Baseline Cr is 0.8. - On 05/28, Cr bumped to 1.2 with Lasix diuresis. On 05/29, creatinine increased again to 2.19 and BUN up to 44, did receive IV diuretics but fractional excretion of sodium calculated to be prerenal, no granular casts on UA Because of her severe respiratory distress and worsening pulmonary edema, she was given total of 60 mg of IV Lasix on the morning of 05/29 with not a brisk response of urine output Repeat BMP later in the day showed creatinine trending down to 2.0 Continues to improve today -Received 1 dose of IV albumin as above and now on Bumex drip as above -Appreciate nephrology consultation -Loop diuretics intermittently to encourage negative fluid balance -Follow BMP in the morning, urine output (5) MARTINEZ (dyspnea on exertion): Progressively worsening over the last 2 months, most likely secondary to acute on chronic diastolic CHF, symptomatic anemia, and pleural effusions CT chest on 05/24 showed mild emphysematous changes. Repeat CTA on 05/27 showed volume overload. - Got 2 units of PRBCs on 05/24 - Elevated troponin on 05/27 in the setting of worsening shortness of breath and tachypnea & tachycardia. Stable; non-ischemic pattern. -Canceled nuclear stress as originally planned. -DC nitroglycerin patch per cardiology rec. (6) GI bleed: Presented with anemia with hemoglobin of 8, now improved to 11.8 after PRBC transfusion on 05/24 EGD on 05/23 showed esophagitis consistent with candidiasis along with gastritis. No overt melena or hematochezia. CT a/p on 05/24 did not show any mass or concerning findings related to bleeding. - GI consulted - Appreciate recs -Continue PPI PO BID and Carafate -Continue fluconazole for esophageal candidiasis x21-day course -Follow CBC-hemoglobin trending upward (7) Essential hypertension: BP is controlled -Continue to hold valsartan due to ZAC and hold verapamil due to possibility of causing worsening renal function as per discussion with pharmacy -Continue to hold hydrochlorothiazide (8) Esophageal candidiasis: As above -Treating with Diflucan x21-day course with last day being approximately 06/14/2019 (9) Hyponatremia: Sodium has been in the mid 120s throughout her entire stay and is likely due to volume overload and CHF -Attempts at diuresis as above -Nephrology following -Follow BMP (10) Elevated troponin: Mildly elevated at 0.5 and stable x3 in the setting of acute CHF as above and respiratory distress No ischemic pattern Echocardiogram on 05/22 without wall motion abnormalities Nuclear stress test canceled due to severe respiratory distress and would not likely exchange architect at this time even if abnormal -Appreciate cardiology consultation (11) Aortic stenosis: Moderate, noted on echocardiogram -Should be followed routinely as an outpatient (12) Carotid artery stenosis: Known to have bilateral SHITAL 50-69%, followed as an outpatient -Holding home aspirin due to recent GI bleed -Continue atorvastatin 40 mg p.o. nightly (13) DVT prophylaxis: Previously avoiding anticoagulation due to GI bleed but now this is stabilized and hemoglobin trending upward -Could add SQ heparin -SCDs Disposition-continued stay in the ICU Subjective Patient was intubated this morning for worsening respiratory failure. Is now on a max drip and received Diuril with continued oliguria although had a good response to Diuril. Discussed the case with the dance artist Review of Systems Review of Systems: Unobtainable due to endotracheal tube and Unobtainable due to reduced consciousness Physical Exam Constitutional: average body habitus, + frail appearing and + mechanically ventilated; no acute distress ENMT: external ear and nose normal, oropharynx normal Neck: trachea midline, no thyromegaly Respiratory: no labored breathing Auscultation: + crackles (In the middle lung whittaker bilaterally); no rhonchi and no wheezes Cardiovascular: RRR, no murmur, no edema Gastrointestinal (Abdomen): normal bowel sounds, soft, nontender, no hepatosplenomegaly Musculoskeletal: Extremities: extremities normal to inspection; no cyanosis and no clubbing Skin: no rashes, warm and dry Neurologic: + not awake Genitourinary: Benitez catheter in place Results & Data Vital Signs (Past 12 Hours) Vital Signs Temp Pulse Pulse Resp BP Pulse Ox 05/30/19 19:09 75 16 05/30/19 18:00 76 119/43 L 98 05/30/19 17:46 87 19 100 05/30/19 17:00 76 147/54 H 98 05/30/19 16:00 73 127/47 L 97 05/30/19 15:00 37.4 C 79 126/41 L 97 05/30/19 14:38 73 16 98 05/30/19 14:00 72 98 05/30/19 13:00 73 123/59 L 98 05/30/19 12:00 37.4 C 78 121/54 L 98 05/30/19 11:00 73 124/48 L 98 05/30/19 10:39 79 17 99 05/30/19 10:00 77 130/51 L 100 05/30/19 09:00 75 128/48 L 100 05/30/19 08:01 79 16 98 05/30/19 08:00 36.9 C 76 118/42 L 100 Laboratory Results Labs reviewed Diagnostic Findings Chest x-ray image personally reviewed by me and agree with the following report: XR chest 1V portable HISTORY: 89 years-old Female S/P ETT OGT acute respiratory distress COMPARISON: Chest radiograph 05/29/2019 TECHNIQUE: Portable AP view of the chest FINDINGS: Cardiac silhouette is enlarged, unchanged. Calcification of the thoracic aortic arch. No pneumothorax. Unchanged bilateral pleural effusions with bibasilar opacities. Pulmonary vascular congestion with pulmonary edema pattern of disease redemonstrated. Slightly improved aeration of the right greater than left lung bases. Degenerative changes of the shoulders and spine. Endotracheal tube has been placed, terminating 3.9 cm superior to the bobo. An enteric tube is noted coursing below the diaphragm outside the [id number]. IMPRESSION: 1. Cardiomegaly with persistent pulmonary edema. There is slightly improved aeration of the lung bases. 2. Bilateral pleural effusions with bibasilar opacities redemonstrated. 3. Endotracheal tube terminates 3.9 cm superior to the bobo. PG Care Time/CCT Total # of Minutes Spent Total Time Spent with Patient: Total time spent is greater than 50% in coordination of care (as documented) at patient's floor/unit and/or counseling patient:
[2019-05-30] MEDS: ATORVASTATIN 40 MG TAB PO SCH (20:35)
[2019-05-30] MEDS: PEPTAMEN 1.5 CAL 1,000 ML BAG PO SCH (21:22)
[2019-05-31] MEDS: LEVALBUTEROL HCL 0.63 MG/3 ML NEB NEB SCH ×4 (00:58→19:39)
[2019-05-31] MEDS: BUMETANIDE 10 MG in DEXTROSE 5% 10 ML IV SCH ×3 (01:40→22:22)
[2019-05-31] MEDS: fentaNYL citrate 100 MCG/2 ML VIAL IV PRN ×3 (02:45→17:52)
[2019-05-31] MEDS: LORazepam 1 MG/2 ML VIAL IV PRN ×3 (03:03→19:46)
[2019-05-31] MEDS: NOREPINEPHRINE BIT INJ 8 MG in DEXTROSE 5% 500 ML IV SCH ×2 (05:21→18:37)
[2019-05-31 05:28] LABS: Basophils # (auto) 0.02 K/uL (0-0.2); Basophils % (auto) 0.2 %; Eosinophils # (auto) 0.07 K/uL (0-0.5); Eosinophils % (auto) 0.6 %; Hematocrit (blood only) 31.5 % (37-47); Hemoglobin 10.9 g/dL (12.0-16.0); Immature Granulocytes # (auto) 0.04 K/uL (0.00-0.02); Immature Granulocytes % (auto) 0.3 %; Lymphocytes # (auto) 0.53 K/uL (1.2-3.4); Lymphocytes % (auto) 4.2 %; Mean Corpuscular Hgb Conc 34.6 g/dL (32-36); Mean Corpuscular Volume 85.4 fL (80-100); Monocytes # (auto) 0.98 K/uL (0.11-0.59); Monocytes % (auto) 7.8 %; Neutrophils # (auto) 10.85 K/uL (1.4-6.5); Neutrophils % (auto) 86.9 %; Platelet Count 268 K/uL (130-400); RDW Standard Deviation 43.5 fL (36.4-46.3); Red Blood Count 3.69 M/uL (4.2-5.4); White Blood Count 12.49 K/uL (4.8-10.8)
[2019-05-31] MEDS: POTASSIUM CHLORIDE / WTR 10 MEQ/100 ML PLCT IV SCH ×2 (05:39→06:44)
[2019-05-31 05:48] LABS: BUN Creatinine Ratio 34.3 (10-20); Calcium 8.1 mg/dl (8.5-10.1); Creatinine Clr Calc Pharmacy 16.7 ml/min; Est GFR (Non-African American) 25.9; Potassium 3.2 mmol/L (3.5-5.1)
[2019-05-31 05:56] LABS: Phosphorus 3.8 mg/dl (2.5-4.9)
[2019-05-31 06:12] LABS: iSTAT Art Bld Gas pCO2 Correct 38 mmHg (35-46); iSTAT Art Bld Gas pH Corrected 7.436 (7.35-7.45); iSTAT Arterial Blood Gas HCO3 25 meg/L (19-24); iSTAT Arterial Blood Gas pCO2 38 mmHg (35-46); iSTAT Arterial Blood Gas pH 7.44 (7.35-7.45); iSTAT Carbon Dioxide 27 mEq/l (24-31); iSTAT Site Art Line
--- NOTE | 2019-05-31 07:04 | XRay Report ---
XR chest 1V portable CLINICAL HISTORY: Respiratory failure COMPARISON STUDY: 05/30/2019 FINDINGS: There is an endotracheal tube 27 mm above the bobo. A nasogastric tube passes into the st omach. There is slight improvement in the congestive failure and pulmonary edema. There are persisten t bilateral pleural effusions with associated basilar opacities likely representing compressive atele ctasis.[ IMPRESSION: Slight improvement in the congestive failure/pulmonary edema pattern with persistent bila teral pleural effusions and associated basilar opacities Electronically signed by: Angel Mei M.D. 05/31/2019 7:03 AM
--- NOTE | 2019-05-31 07:44 | Critical Care Progress Note ---
Date of Service May 31, 2019 Assessment & Plan (1) Admitted to intensive care unit: Nighat Greene is a 89 y/o female who presents to ICU for worsening respiratory status from pulmonary edema in setting of acute kidney injury and oliguria, with possible need for thoracentesis intervention. Neuro: - Tylenol 650mg q4h PRN for pain/fever - Lorazepam 0.5mg q6h PRN for anxiety Cardiac/Vascular: PMHx: HTN, HLD - currently stable hemodynamics. - NTG patch for chest discomfort - hold home anti-HTNs - Echocardiogram performed showed LV normal systolic function; no regional wall abnormalities; mild concentric LVH; EF 55-60%; moderate aortic stenosis Pulm: - Did not handle attempt to wean from ventilator - bedside US for considerations for thoracentesis and thoracentesis bilaterally per family's wishes. - Xopenex 0.63mg neb q6h GI: PPx - Protonix 40mg BID; sucralfate 1gm qACHS Zofran for nausea continue with home multivitamin okay Renal/lytes: - elevated creatinine <1 to 1.20 (05/28) to 2.21 in setting of diuresis to improve pulmonary edema, trended down to 1.98 (05/30); improved further 05/31 1.72. - nephro consulted : underwood cath strict I/Os Endo: No hx of DM or thyroid disease Heme: - Leukocytosis of 18.75 on transfer to ICU, presented with value approx 15 that peaked to 20. Improved today to 1.72. - Hgb stable - Platelets WNL ID: - positive blood cultures on 05/28 for strep mitis; 05/29 blood cultures positive for step mitis, 05/29 urine culture positive for MRSA. 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 Also treated for esophageal candidiasis with Diflucan 100mg qAM with completion of 7 day course - ID consult placed DVT ppx:SCDs Resuscitation status: DNR/DNI Supervising Physician Co-Signing Physician Notes Dr. Noland was resident physician during care of patient. I separately evaluated patient for perdomo portions of the history and the exam. I was present during the critical portion of medical decision making, and I discussed the case with the resident. I generally agree with the findings and plan. ID speciation of Streptococcus mitis will add Rocephin in addition to Dapto as there is MRSA growing out of it this could represent colonization, at this time I will defer to infectious disease and continue the daptomycin, avoiding vancomycin secondary to ongoing renal insufficiency. Patient is diuresing however she is still requiring large amounts of Bumex via infusion, will repeat lung ultrasound to evaluate for any decrease in pulmonary edema. Discussed with Dr. Whitaker pulmonary regarding possible thoracentesis. If there is significant pulmonary edema still I feel a thoracentesis may improve respiratory function to allow for possible extubation under the hospice is of terminal extubation without reintubation for subsequent respiratory insufficiency. 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 I believe the patient is in an end-stage terminal condition without chance of meaningful recovery as defined by the patient's long-term goals and wishes. In discussion with the patient's son and daughter yesterday she would desire to dependently at home and shelter residents would be inconsistent with her desires, the patient's son brought in a living will which clearly stated she would not want long-term mechanical ventilation no heroic measures undertaken in event of cardiac arrest. 2199 update: In speaking with patient's family son who is power of attorney general has opted to proceed with bilateral pleural drainage in the hopes of some improvement in the next 24 hours. Gwendolyn Cabrera and I have performed bilateral pleural drainage removing approximately 600 mL's out of the left chest and 1000 mL's out of the right chest post procedure chest x-ray was reviewed which did not demonstrate a pneumothorax and significant improvement in the patient's bila teral pleural effusions. I have personally spent 50 minutes of critical care time in the direct management of this patient. This is a life/limb threatening event. This includes time spent evaluating patient, direct bedside care, chart review, placing orders, interpretation of diagnostic studies, discussion with consultants, patient, and/or family members regarding treatment decisions, as well as other required patient management activities. This time is exclusive of all separately billable procedures, and teaching time and separate from and in addition to any other critical care service time. I have personally spent 45 minutes of critical care time in the direct management of this patient. This is a life/limb threatening event. This includes time spent evaluating patient, direct bedside care, chart review, placing orders, interpretation of diagnostic studies, discussion with consultants, patient, and/or family members regarding treatment decisions, as well as other required patient management activities. This time is exclusive of all separately billable procedures, and teaching time and separate from and in addition to any other critical care service time. Subjective Caveat: History Limited by on ventilator. Nighat was reported to have increased diuresis overnight. Nighat's son is also POA with documentation now on patient's chart. Family would like to pursue with thoracentesis being aware of most likely reaccumulation of fluid. Also, nursing reported noticing abrasion of lower lip. Review of Systems Review of Systems: Unobtainable due to endotracheal tube Physical Exam Constitutional: + ill appearing and comfortable Neck: trachea midline Respiratory: no respiratory distress Auscultation: + diminished lung sounds (at bases bilaterally) Cardiovascular: Rate/Rhythm: regular rate and + irregularly irregular Extremities: no edema Gastrointestinal (Abdomen): Percussion/Palpation: abdomen soft; abdomen nontender Musculoskeletal: Head/Neck/Chest: normocephalic sarcopenic Skin: no rashes, warm and dry Neurologic: moves all extremities Results & Data Vital Signs (Past 12 Hours) Vital Signs Temp Pulse Resp BP Pulse Ox 05/31/19 06:00 89 129/56 L 97 05/31/19 05:05 80 16 93 05/31/19 05:00 80 123/46 L 94 05/31/19 04:00 36.9 C 75 119/37 L 96 05/31/19 03:00 82 109/40 L 95 05/31/19 02:00 80 129/42 L 97 05/31/19 01:00 87 16 113/43 L 95 05/30/19 23:00 77 122/59 L 97 05/30/19 22:50 77 16 97 05/30/19 22:00 74 117/42 L 97 05/30/19 21:54 75 19 96 05/30/19 21:00 77 112/43 L 96 05/30/19 20:00 37.0 C 89 146/58 H 98 PG Care Time/CCT Total # of Minutes Spent Total Time Spent with Patient: Total time spent is greater than 50% in coordination of care (as documented) at patient's floor/unit and/or counseling patient: Resident Activity Tracking Resident Involvement: Resident Care Provided Care Provided: Adult Hospital Medicine (ICU)
[2019-05-31] MEDS: MULTI VIT W/MINERALS LIQUID 15 ML UDP PO SCH (08:45)
[2019-05-31] MEDS: FLUCONAZOLE 100 MG TAB PO SCH (08:45)
[2019-05-31] MEDS: FAMOTIDINE 20 MG in SYRINGE 3 ML IV SCH (08:45)
[2019-05-31] MEDS: SUCRALFATE 1 GM/10 ML UDC PO SCH ×4 (08:45→20:34)
[2019-05-31] MEDS ORDERED: MULTI VIT W/MINERALS LIQUID 15 ML UDP PO SCH (09:00)
--- NOTE | 2019-05-31 09:49 | Nephrology Progress Note ---
Date of Service May 31, 2019 Assessment & Plan (1) ZAC (acute kidney injury): -- Baseline creatinine 0.8 mg/dL -- Creatinine stable at 1.8 mg/dL today -- Hypokalemic, electrolytes otherwise acceptable - KCl replacement being provided (additional 20 mEq provided this AM) -- Clinical presentation consistent with ATN associated with acute on chronic CHF, medications, iodinated contrast -- Non-oliguric -- CT did not demonstrate obstruction -- Urine studies demonstrate persistent microscopic hematuria and pyuria, culture + MRSA: catheter should be exchanged and urine studies repeated -- Continue to hold WILBERT/ARB -- Document I/O's -- Monitor metabolic profile twice daily -- No indication for dialysis at this time (2) MARTINEZ (dyspnea on exertion): -- Clinically consistent with Acute CHF with interstitial edema -- CXR improving -- Remains on Bumex gtt -- IV Diuril provided x 2 doses yesterday to encourage diuresis (3) GI bleed: -- EGD on 05/23 showed esophagitis consistent with candidiasis along with gastritis -- PPI PO BID -- Fluconazole for esophageal candidiasis (4) Essential hypertension: -- Hold HCTZ and valsartan Subjective Remains on ventilator support. CPAP with sedation weaned. Low tidal volumes. Urine output improved. O2 requirement also improved. Plan of care discussed with ICU team and Dr. Oconnor. Review of Systems Review of Systems: All systems reviewed & are unremarkable except as noted in HPI & below Physical Exam Constitutional: + frail appearing; no acute distress Eyes: no scleral abnormality and no corneal abnormality ENMT: Mouth: no oral mucosal abnormality and oral mucous membranes not dry Neck: normal visual inspection and trachea midline Respiratory: Auscultation: + diminished lung sounds and + rales improving breath sounds Cardiovascular: Rate/Rhythm: regular rate and regular rhythm Heart Sounds: normal S1 and normal S2 Vessels: + JVD Extremities: no edema Gastrointestinal (Abdomen): Percussion/Palpation: abdomen soft; abdomen nontender Musculoskeletal: Extremities: no cyanosis and no clubbing Skin: + turgor decreased; no rashes Neurologic: Motor/Sensory: no tremor and no asterixis Psychiatric: Orientation: alert Affect: euthymic affect Results & Data Vital Signs (Past 12 Hours) Vital Signs Temp Pulse Resp BP Pulse Ox 05/31/19 07:08 93 H 19 96 05/31/19 06:00 89 129/56 L 97 05/31/19 05:05 80 16 93 05/31/19 05:00 80 123/46 L 94 05/31/19 04:00 36.9 C 75 119/37 L 96 05/31/19 03:00 82 109/40 L 95 05/31/19 02:00 80 129/42 L 97 05/31/19 01:00 87 16 113/43 L 95 05/30/19 23:00 77 122/59 L 97 05/30/19 22:50 77 16 97 05/30/19 22:00 74 117/42 L 97 05/30/19 21:54 75 19 96 Laboratory Results Laboratory Results - last 24 hr 05/30/19 05/30/19 05/30/19 12:22 15:59 15:59 WBC RBC Hgb Hct MCV MCH MCHC RDW Std Deviation RDW Coeff of Sean Plt Count MPV Immature Gran % (Auto) Neut % (Auto) Lymph % (Auto) Delta % (Auto) Eos % (Auto) Baso % (Auto) Immature Gran # (Auto) Neut # (Auto) Lymph # (Auto) Delta # (Auto) Eos # (Auto) Baso # (Auto) Sample Site POC pH POC pCO2 POC pO2 POC HCO3 POC Total CO2 POC Base Excess ABG pH (Temp Correct) ABG pCO2 (Temp Corrct POC ABG pO2 at Pt Temp POC ABG O2 Sat Dieudonne Test O2 Delivery Device POC O2 Rate Minute Ventilation Tidal Volume PEEP Sodium 128 L Potassium 3.4 L Chloride 91 L Carbon Dioxide 23 Anion Gap 14.0 H BUN 59 H Creatinine 1.89 H Est Cr Clr Drug Dosing 15.2 Est GFR ( Amer) 26.8 Est GFR (Non-Af Amer) 23.1 BUN/Creatinine Ratio 31.3 H Glucose 79 POC Glucose 95 Lactate 0.8 Calcium 8.4 L Phosphorus Magnesium Total Bilirubin 0.5 Direct Bilirubin 0.2 AST 34 ALT 55 Alkaline Phosphatase 123 H Total Protein 5.5 L Albumin 2.4 L 05/30/19 05/31/19 05/31/19 23:54 04:58 04:58 WBC 12.49 H RBC 3.69 L Hgb 10.9 L Hct 31.5 L MCV 85.4 MCH 29.5 MCHC 34.6 RDW Std Deviation 43.5 RDW Coeff of Sean 14.0 Plt Count 268 MPV 10.0 Immature Gran % (Auto) 0.3 Neut % (Auto) 86.9 Lymph % (Auto) 4.2 Delta % (Auto) 7.8 Eos % (Auto) 0.6 Baso % (Auto) 0.2 Immature Gran # (Auto) 0.04 H Neut # (Auto) 10.85 H Lymph # (Auto) 0.53 L Delta # (Auto) 0.98 H Eos # (Auto) 0.07 Baso # (Auto) 0.02 Sample Site POC pH POC pCO2 POC pO2 POC HCO3 POC Total CO2 POC Base Excess ABG pH (Temp Correct) ABG pCO2 (Temp Corrct POC ABG pO2 at Pt Temp POC ABG O2 Sat Dieudonne Test O2 Delivery Device POC O2 Rate Minute Ventilation Tidal Volume PEEP Sodium 128 L Potassium 3.2 L Chloride 91 L Carbon Dioxide 25 Anion Gap 12.0 H BUN 59 H Creatinine 1.72 H Est Cr Clr Drug Dosing 16.7 Est GFR ( Amer) 30.0 Est GFR (Non-Af Amer) 25.9 BUN/Creatinine Ratio 34.3 H Glucose 101 H POC Glucose 86 Lactate Calcium 8.1 L Phosphorus 3.8 D Magnesium 2.0 Total Bilirubin Direct Bilirubin AST ALT Alkaline Phosphatase Total Protein Albumin 05/31/19 05:59 WBC RBC Hgb Hct MCV MCH MCHC RDW Std Deviation RDW Coeff of Sean Plt Count MPV Immature Gran % (Auto) Neut % (Auto) Lymph % (Auto) Delta % (Auto) Eos % (Auto) Baso % (Auto) Immature Gran # (Auto) Neut # (Auto) Lymph # (Auto) Delta # (Auto) Eos # (Auto) Baso # (Auto) Sample Site Art Line POC pH 7.44 POC pCO2 38 POC pO2 105 H POC HCO3 25 H POC Total CO2 27 POC Base Excess 1.0 ABG pH (Temp Correct) 7.436 ABG pCO2 (Temp Corrct 38 POC ABG pO2 at Pt Temp 104 POC ABG O2 Sat 98.0 H Dieudonne Test NA O2 Delivery Device Ventilator POC O2 Rate 16 Minute Ventilation 5.9 Tidal Volume 400 PEEP 5 Sodium Potassium Chloride Carbon Dioxide Anion Gap BUN Creatinine Est Cr Clr Drug Dosing Est GFR ( Amer) Est GFR (Non-Af Amer) BUN/Creatinine Ratio Glucose POC Glucose Lactate Calcium Phosphorus Magnesium Total Bilirubin Direct Bilirubin AST ALT Alkaline Phosphatase Total Protein Albumin
--- NOTE | 2019-05-31 10:47 | Cardiology Progress Note ---
Date of Service May 31, 2019 Assessment & Plan (1) Acute respiratory failure with hypoxia: Patient remains sedated and intubated in the intensive care unit. Decompensation likely related to CHF. Remains on IV Bumex drip and diuril. (2) Acute on chronic diastolic CHF (congestive heart failure): Decompensated at this time. Diuretic management per Dr. Gaviria. (3) Aortic stenosis: Her aortic valve stenosis is moderate in degree. (4) Gram positive sepsis: Unfortunately, with her aortic valve stenosis, we should presume that the patient has endocarditis. Would recommend a longer course of antibiotics. (5) Essential hypertension: Normal intensive at this time. Could consider the addition low-dose beta- blockade realizing her sinus tachycardia. (6) Hypercholesterolemia: Continue atorvastatin. Subjective Remains sedated and intubated in the intensive care unit. Physical Exam Physical Exam: In general is a well-developed well-nourished white female seated at the bedside without complaints. HEENT exam is notes an ET tube in place. Neck is supple with full carotid upstrokes. A transmitted murmur is noted bilaterally. Jugular venous pressure is difficult to assess. There is no thyromegaly. Cardiovascular exam reveals a regular rhythm with a 2/6 crescendo decrescendo systolic murmur is heard loudest at the base. S2 is audible at the apex. Lungs are clear without rales, rhonchi, wheezes. Abdomen is soft nontender without bruits. Extremities reveal intact radial artery pulses bilaterally. There is no peripheral edema. Results & Data Vital Signs (Past 12 Hours) Vital Signs Temp Pulse Resp BP Pulse Ox 05/31/19 07:08 93 H 19 96 05/31/19 06:00 89 129/56 L 97 05/31/19 05:05 80 16 93 05/31/19 05:00 80 123/46 L 94 05/31/19 04:00 36.9 C 75 119/37 L 96 05/31/19 03:00 82 109/40 L 95 05/31/19 02:00 80 129/42 L 97 05/31/19 01:00 87 16 113/43 L 95 05/30/19 23:00 77 122/59 L 97 05/30/19 22:50 77 16 97 Diagnostic Findings monitoring analyst notes sinus rhythm with frequent PACs.
[2019-05-31] MEDS: DAPTOmycin 400 MG in SYRINGE 0 ML IV SCH (11:41)
[2019-05-31] MEDS ORDERED: cefTRIAXone SODIUM 1,000 MG in DEXTROSE 5% 50 ML IV SCH (12:30)
--- NOTE | 2019-05-31 14:14 | Infectious Disease Progress Nt ---
Date of Service May 31, 2019 Assessment & Plan (1) Gram positive sepsis: will repeat blood cultures again today and continue dapto pending additional micro data. If today's cultures + as well would suggest repeat echo to r/o IE, agree she would be poor candidate for LILIAN. follow culture results. Agree she will need prolonged course of IV abx for suspected IE and . Unclear source, GI, oral, no signs of skin/soft tissue infection. Will repeat blood cultures x 2 and follow results. Final abx plan will depend on ID/sensitivity, echo findings, etc. will follow. Subjective pt seen in followup, family at bedside. Remains intubated, sedated. CXR some improvement, creat improved. 05/30 blood cultures pending. Previous blood cultures 05/28, 05/29 alpha strep, final pending. remains on dapto, tolerating well. afebrile today. wbc improved to 12. Review of Systems Review of Systems: Unobtainable due to endotracheal tube Physical Exam Constitutional: WD/WN, vitals as above + ill appearing and + cachectic Eyes: PERRL, conjunctivae normal, anicteric sclerae ENMT: external ear and nose normal, oropharynx normal Neck: normal visual inspection Respiratory: normal respiratory effort, lungs clear to auscultation Auscultation: + diminished lung sounds Cardiovascular: RRR, no murmur, no edema Extremities: no pedal edema Gastrointestinal (Abdomen): normal bowel sounds, soft, nontender, no hepatosplenomegaly Musculoskeletal: no cyanosis or clubbing, extremities motor strength 5/5 Skin: no rashes, warm and dry Psychiatric: A+Ox3, euthymic affect Results & Data Vital Signs (Past 12 Hours) Vital Signs Temp Pulse Resp BP Pulse Ox 05/31/19 12:52 16 05/31/19 12:00 98 H 132/50 L 98 05/31/19 11:06 103 H 13 98 05/31/19 11:00 100 H 155/70 H 98 05/31/19 10:00 98 H 148/61 H 98 05/31/19 09:01 100 H 139/58 L 97 05/31/19 08:00 102 H 147/68 H 97 05/31/19 07:08 93 H 19 96 05/31/19 07:01 94 H 146/63 H 97 05/31/19 06:00 89 129/56 L 97 05/31/19 05:05 80 16 93 05/31/19 05:00 80 123/46 L 94 05/31/19 04:00 36.9 C 75 119/37 L 96 05/31/19 03:00 82 109/40 L 95 Laboratory Results Microbiology 05/29/19 11:07 Urine,Indwelling Cath Urine Culture - Final Staph aureus MRSA 05/29/19 11:00 Blood Aerobic Blood Culture - Preliminary Streptococcus mitis/oralis 05/29/19 11:00 Blood Anaerobic Blood Culture - Preliminary No growth in Anaerobic bottle after 24 hours. 05/29/19 10:53 Blood Aerobic Blood Culture - Preliminary Streptococcus mitis/oralis 05/29/19 10:53 Blood Anaerobic Blood Culture - Preliminary No growth in Anaerobic bottle after 24 hours. 05/28/19 14:05 Blood Aerobic Blood Culture - Final Streptococcus mitis/oralis 05/28/19 14:05 Blood Anaerobic Blood Culture - Final Streptococcus mitis/oralis 05/28/19 13:57 Blood Aerobic Blood Culture - Final Streptococcus mitis/oralis#2 05/28/19 13:57 Blood Anaerobic Blood Culture - Final Streptococcus mitis/oralis 05/23/19 10:15 Throat Fungal Smear - Final 05/23/19 10:15 Throat Fungal Culture - Final Cate albicans 05/22/19 11:17 Urine,Clean Catch Urine Culture - Final More than three types of organisms present, all high counts mixed probable skin natalie - No further kaelyn ntifications or sensitivities to follow.
--- NOTE | 2019-05-31 14:23 | Progress Note ---
DATE: 05/31/2019 PULMONARY MEDICINE PROGRESS NOTE Chart reviewed and the patient examined. SUBJECTIVE: The patient intubated, receiving mechanical ventilator assistance. I spoke with Dr. Colvin concerning her care earlier in the day. OBJECTIVE: CURRENT VITAL SIGNS: Temperature 36.9, pulse 77 and regular, respiratory rate 16, blood pressure 122/59, O2 sat 97% on current FIO2. SKIN: Without lesion. HEENT: Atraumatic, normocephalic. PERRLA. NECK: Neck veins did not appear to be distended at 180 degrees. No carotid bruits. LUNGS: With rales bilaterally. CARDIAC: Regular rate and rhythm. Grade 2/6 crescendo decrescendo systolic murmur heard at the lower left sternal border. No S3. ABDOMEN: Soft, protuberant. EXTREMITIES: No significant pedal edema, clubbing or cyanosis. NEUROLOGIC: Difficult to assess. LABORATORY DATA: White count 12,400, H and H 10.9 and 31.5. Chest x-ray, perhaps some slight improvement in the pulmonary edema pattern with persistent bilateral pleural effusions and bibasilar atelectasis. Urine grew out Staph aureus MRSA. Blood cultures, Streptococcus mitis/oralis, 2 bottles, O2 sats and vitals. 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 I spoke with Dr. Colvin. I believe the pleural effusions may very well not improve despite aggressive diuresis. I would consider a PleurX catheter placement to either one or both pleural spaces in order to help drain the effusions and improve patient's respiratory status and reserve in order to consider possible extubation within the next 24-48 hours if possible.
[2019-05-31] MEDS ORDERED: ALBUMIN 25% 50 ML IV ONE (18:08)
[2019-05-31] MEDS ORDERED: ALBUMIN 5% 250 ML IV SCH (18:15)
[2019-05-31 19:48] LABS: BUN Creatinine Ratio 40.2 (10-20); Calcium 8.1 mg/dl (8.5-10.1); Creatinine Clr Calc Pharmacy 20.1 ml/min; Est GFR (African American) 37.5; Est GFR (Non-African American) 32.4; Potassium 3.1 mmol/L (3.5-5.1)
--- NOTE | 2019-05-31 20:31 | Hospitalist Progress Note ---
Date of Service May 31, 2019 Assessment & Plan (1) Septicemia: Presented with progressive fatigue and dyspnea since the end of March, but no reports of fevers. 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 -Started IV vancomycin but then infectious disease switched her to IV daptomycin given renal failure -Continue IV daptomycin for MRSA UTI -Benitez catheter exchanged on 05/31 -Rocephin added on 05/31 as Streptococcus mitis can develop resistance to daptomycin -Consult infectious disease-appreciate recommendations -Is not able to withstand a LILIAN at this time due to severe respiratory distress requiring intubation as below-discussed with cardiology -Would likely just treat empirically with 4 to 6 weeks of IV antibiotics -Follow blood cultures until sterile-repeat cultures on 05/30 are no growth to date Blood pressures are stable Leukocytosis is significantly improved today (2) Acute respiratory failure with hypoxia: Secondary to acute on chronic diastolic CHF, with bilateral pleural effusions and pulmonary edema worsening on chest x-ray on 05/29 On the morning of 05/30, she continued to be in significant respiratory distress and developed worsening acute hypercapnic and hypoxic respiratory failure despite being on BiPAP-was intubated and mechanically ventilated Chest x-ray continues to be improved with less pulmonary edema today but with pleural effusion-plan for thoracentesis this evening She is now putting out quite a bit of urine and is likely having a post ATN diuresis -Continue diuresis now with Bumex drip and did receive 2 doses of Diuril on 05/30-can likely wean off Bumex drip by tomorrow -Continued stay in the ICU-appreciate critical care management -Follow chest x-ray in the morning -Hopeful to wean off ventilator in the next day or so (3) Acute on chronic diastolic CHF (congestive heart failure): Has had progressive dyspnea on exertion over the last 2 months, much worse in the last week prior to admission, and then significantly worse since receiving PRBC transfusion for anemia Echocardiogram with moderate aortic stenosis with preserved EF Question if this is been exacerbated by her septicemia and perhaps by suspected infective endocarditis She had multiple doses of IV Lasix and was still requiring BiPAP and eventually mechanical ventilation as above Her acute kidney injury is now significantly improved and she is having excellent urine output as above -Received 1 dose of IV albumin x1 as per engineering secretary on 05/29 -Continue Bumex drip, also received Diuril -Follow I's and O's, daily weights -Appreciate cardiology consultation and critical care management (4) ZAC (acute kidney injury): Baseline Cr is 0.8. - On 05/28, Cr bumped to 1.2 with Lasix diuresis. On 05/29, creatinine increased again to 2.19 and BUN up to 44, did receive IV diuretics but fractional excretion of sodium calculated to be prerenal, no granular casts on UA Because of her severe respiratory distress and worsening pulmonary edema, she was given total of 60 mg of IV Lasix on the morning of 05/29 with not a brisk response of urine output Creatinine continues to trend downward today to 1.43 and is now making excellent urine as above Other electrolytes are improving as well, hyponatremia improving, with hy pokalemia secondary to loop diuretic -Received 1 dose of IV albumin as above and continues on Bumex drip as above -Appreciate nephrology consultation -Follow BMP in the morning (5) MARTINEZ (dyspnea on exertion): Progressively worsening over the last 2 months, most likely secondary to acute on chronic diastolic CHF, symptomatic anemia, and pleural effusions CT chest on 05/24 showed mild emphysematous changes. Repeat CTA on 05/27 showed volume overload. - Got 2 units of PRBCs on 05/24 - Elevated troponin on 05/27 in the setting of worsening shortness of breath and tachypnea & tachycardia. Stable; non-ischemic pattern. -Canceled nuclear stress as originally planned. -DC nitroglycerin patch per cardiology rec. (6) GI bleed: Presented with anemia with hemoglobin of 8, now improved to 10-11 after PRBC transfusion on 05/24 EGD on 05/23 showed esophagitis consistent with candidiasis along with gastritis. No overt melena or hematochezia. CT a/p on 05/24 did not show any mass or concerning findings related to bleeding. - GI consulted - Appreciate recs -Currently, her PPI PO BID and Carafate are on hold-receiving IV Pepcid -Continue fluconazole for esophageal candidiasis x21-day course -Follow CBC-hemoglobin remained stable (7) Essential hypertension: BP is controlled -Continue to hold valsartan due to ZAC and hold verapamil due to possibility of causing worsening renal function as per discussion with pharmacy -Continue to hold hydrochlorothiazide (8) Esophageal candidiasis: As above -Treating with Diflucan x21-day course with last day being approximately 06/14/2019 (9) Hyponatremia: Sodium has been in the mid 120s throughout her entire stay and is likely due to volume overload and CHF-is now improved to 130 -Continue diuresis as above -Nephrology following -Follow BMP (10) Elevated troponin: Mildly elevated at 0.5 and stable x3 in the setting of acute CHF as above and respiratory distress No ischemic pattern Echocardiogram on 05/22 without wall motion abnormalities Nuclear stress test canceled due to severe respiratory distress and would not likely spinning frame changer at this time even if abnormal -Appreciate cardiology consultation (11) Aortic stenosis: Moderate, noted on echocardiogram -Should be followed routinely as an outpatient (12) Carotid artery stenosis: Known to have bilateral SHITAL 50-69%, followed as an outpatient -Holding home aspirin due to recent GI bleed -Continue atorvastatin 40 mg p.o. nightly (13) DVT prophylaxis: Previously avoiding anticoagulation due to GI bleed and now on hold for thoracentesis -Could add SQ heparin likely tomorrow -SCDs Disposition-continued stay in the ICU Discussed her care with son and daughter at the bedside extensively Has now been changed to a DNR/DNI as per family discussion with engineering secretary today Subjective Patient remains mechanically ventilated and sedated. I discussed her case with her son and daughter at the bedside today. She is to have a thoracentesis sometime here this evening. Rocephin was started today after BCxs growing Strep mitis/oralis. She is also growing MRSA in the urine. She had her Benitez catheter changed out today by nursing. She is making plenty of urine now and her renal function is improving. Review of Systems Review of Systems: Unobtainable due to endotracheal tube and Unobtainable due to reduced consciousness Physical Exam Constitutional: average body habitus, + frail appearing and + mechanically ventilated; no acute distress Neck: trachea midline, no thyromegaly Respiratory: no labored breathing Auscultation: no crackles, no rhonchi and no wheezes Cardiovascular: RRR, no murmur, no edema Gastrointestinal (Abdomen): normal bowel sounds, soft, nontender, no hepatosplenomegaly Musculoskeletal: Extremities: extremities normal to inspection; no cyanosis and no clubbing Skin: no rashes, warm and dry Neurologic: + not awake Genitourinary: Benitez catheter in place draining clear yellow urine Results & Data Vital Signs (Past 12 Hours) Vital Signs Pulse Resp BP Pulse Ox 05/31/19 19:40 87 16 99 05/31/19 19:01 78 138/50 L 99 05/31/19 19:00 87 99 05/31/19 18:17 83 99/40 L 95 05/31/19 18:13 85 96/38 L 96 05/31/19 18:06 88 101/40 L 96 05/31/19 18:00 93 H 124/52 L 97 05/31/19 17:00 102 H 161/66 H 99 05/31/19 16:46 93 H 17 97 05/31/19 16:00 89 133/48 L 97 05/31/19 15:01 113 H 181/144 H 99 05/31/19 15:00 111 H 98 05/31/19 14:26 88 16 98 05/31/19 12:52 16 05/31/19 12:00 98 H 132/50 L 98 05/31/19 11:06 103 H 13 98 05/31/19 11:00 100 H 155/70 H 98 05/31/19 10:00 98 H 148/61 H 98 05/31/19 09:01 100 H 139/58 L 97 Laboratory Results 05/31/19 05/31/19 05/31/19 Range/Units 21:48 21:48 21:48 WBC (4.8-10.8) K/uL RBC (4.2-5.4) M/uL Hgb (12.0-16.0) g/dL Hct (37-47) % MCV (80-100) fL MCH (25-34) pg MCHC (32-36) g/dL RDW Std Deviation (36.4-46.3) fL RDW Coeff of Sean (11.5-14.5) % Plt Count (130-400) K/uL MPV (7.4-10.4) fL Immature Gran % (Auto) % Neut % (Auto) % Lymph % (Auto) % [place] % (Auto) % Eos % (Auto) % Baso % (Auto) % Immature Gran # (Auto) (0.00-0.02) K/uL Neut # (Auto) (1.4-6.5) K/uL Lymph # (Auto) (1.2-3.4) K/uL [place] # (Auto) (0.11-0.59) K/uL Eos # (Auto) (0-0.5) K/uL Baso # (Auto) (0-0.2) K/uL Sample Site POC pH (7.35-7.45) POC pCO2 (35-46) mmHg POC pO2 (80-95) mmHg POC HCO3 (19-24) jeanie/L POC Total CO2 (24-31) mEq/l POC Base Excess (-9-1.8) jeanie/L ABG pH (Temp Correct) (7.35-7.45) ABG pCO2 (Temp Corrct (35-46) mmHg POC ABG pO2 at Pt Temp POC ABG O2 Sat (90-95) % Dieudonne Test O2 Delivery Device POC O2 Rate Minute Ventilation Tidal Volume PEEP Sodium (136-145) mmol/L Potassium (3.5-5.1) mmol/L Chloride (98-107) mmol/L Carbon Dioxide (21-32) mmol/L Anion Gap (3-11) BUN (7-18) mg/dl Creatinine (0.6-1.2) mg/dl Est Cr Clr Drug Dosing ml/min Est GFR ( Amer) Est GFR (Non-Af Amer) BUN/Creatinine Ratio (10-20) Glucose (70-99) mg/dl POC Glucose (70-99) Calcium (8.5-10.1) mg/dl Phosphorus (2.5-4.9) mg/dl Magnesium (1.8-2.4) mg/dl Lactate Dehydrogenase (84-246) U/L Total Protein Albumin Pleural Fluid Source Pending Pending Pleural Color Pending Pending Pleural Appearance Pending Pending Pleural WBC Pending Pending Pleural RBC Pending Pending Pleural Total Protein Pending Pleural LDH Pending Pleural Glucose Pending 05/31/19 05/31/19 05/31/19 Range/Units 19:24 19:24 19:17 WBC (4.8-10.8) K/uL RBC (4.2-5.4) M/uL Hgb (12.0-16.0) g/dL Hct (37-47) % MCV (80-100) fL MCH (25-34) pg MCHC (32-36) g/dL RDW Std Deviation (36.4-46.3) fL RDW Coeff of Sean (11.5-14.5) % Plt Count (130-400) K/uL MPV (7.4-10.4) fL Immature Gran % (Auto) % Neut % (Auto) % Lymph % (Auto) % [place] % (Auto) % Eos % (Auto) % Baso % (Auto) % Immature Gran # (Auto) (0.00-0.02) K/uL Neut # (Auto) (1.4-6.5) K/uL Lymph # (Auto) (1.2-3.4) K/uL [place] # (Auto) (0.11-0.59) K/uL Eos # (Auto) (0-0.5) K/uL Baso # (Auto) (0-0.2) K/uL Sample Site POC pH (7.35-7.45) POC pCO2 (35-46) mmHg POC pO2 (80-95) mmHg POC HCO3 (19-24) jeanie/L POC Total CO2 (24-31) mEq/l POC Base Excess (-9-1.8) jeanie/L ABG pH (Temp Correct) (7.35-7.45) ABG pCO2 (Temp Corrct (35-46) mmHg POC ABG pO2 at Pt Temp POC ABG O2 Sat (90-95) % Dieudonne Test O2 Delivery Device POC O2 Rate Minute Ventilation Tidal Volume PEEP Sodium 130 L (136-145) mmol/L Potassium 3.1 L (3.5-5.1) mmol/L Chloride 92 L (98-107) mmol/L Carbon Dioxide 28 (21-32) mmol/L Anion Gap 10.0 (3-11) BUN 58 H (7-18) mg/dl Creatinine 1.43 H (0.6-1.2) mg/dl Est Cr Clr Drug Dosing 20.1 ml/min Est GFR ( Amer) 37.5 Est GFR (Non-Af Amer) 32.4 BUN/Creatinine Ratio 40.2 H (10-20) Glucose 172 H (70-99) mg/dl POC Glucose (70-99) Calcium 8.1 L (8.5-10.1) mg/dl Phosphorus (2.5-4.9) mg/dl Magnesium (1.8-2.4) mg/dl Lactate Dehydrogenase 333 H (84-246) U/L Total Protein Pending Albumin Pending Pleural Fluid Source Pleural Color Pleural Appearance Pleural WBC Pleural RBC Pleural Total Protein Pleural LDH Pleural Glucose 05/31/19 05/31/19 05/31/19 Range/Units 18:00 05:59 04:58 WBC (4.8-10.8) K/uL RBC (4.2-5.4) M/uL Hgb (12.0-16.0) g/dL Hct (37-47) % MCV (80-100) fL MCH (25-34) pg MCHC (32-36) g/dL RDW Std Deviation (36.4-46.3) fL RDW Coeff of Sean (11.5-14.5) % Plt Count (130-400) K/uL MPV (7.4-10.4) fL Immature Gran % (Auto) % Neut % (Auto) % Lymph % (Auto) % [place] % (Auto) % Eos % (Auto) % Baso % (Auto) % Immature Gran # (Auto) (0.00-0.02) K/uL Neut # (Auto) (1.4-6.5) K/uL Lymph # (Auto) (1.2-3.4) K/uL [place] # (Auto) (0.11-0.59) K/uL Eos # (Auto) (0-0.5) K/uL Baso # (Auto) (0-0.2) K/uL Sample Site Art Line POC pH 7.44 (7.35-7.45) POC pCO2 38 (35-46) mmHg POC pO2 105 H (80-95) mmHg POC HCO3 25 H (19-24) jeanie/L POC Total CO2 27 (24-31) mEq/l POC Base Excess 1.0 (-9-1.8) jeanie/L ABG pH (Temp Correct) 7.436 (7.35-7.45) ABG pCO2 (Temp Corrct 38 (35-46) mmHg POC ABG pO2 at Pt Temp 104 POC ABG O2 Sat 98.0 H (90-95) % Dieudonne Test NA O2 Delivery Device Ventilator POC O2 Rate 16 Minute Ventilation 5.9 Tidal Volume 400 PEEP 5 Sodium 128 L (136-145) mmol/L Potassium 3.2 L (3.5-5.1) mmol/L Chloride 91 L (98-107) mmol/L Carbon Dioxide 25 (21-32) mmol/L Anion Gap 12.0 H (3-11) BUN 59 H (7-18) mg/dl Creatinine 1.72 H (0.6-1.2) mg/dl Est Cr Clr Drug Dosing 16.7 ml/min Est GFR ( Amer) 30.0 Est GFR (Non-Af Amer) 25.9 BUN/Creatinine Ratio 34.3 H (10-20) Glucose 101 H (70-99) mg/dl POC Glucose 159 H (70-99) Calcium 8.1 L (8.5-10.1) mg/dl Phosphorus 3.8 D (2.5-4.9) mg/dl Magnesium 2.0 (1.8-2.4) mg/dl Lactate Dehydrogenase (84-246) U/L Total Protein Albumin Pleural Fluid Source Pleural Color Pleural Appearance Pleural WBC Pleural RBC Pleural Total Protein Pleural LDH Pleural Glucose 05/31/19 05/30/19 Range/Units 04:58 23:54 WBC 12.49 H (4.8-10.8) K/uL RBC 3.69 L (4.2-5.4) M/uL Hgb 10.9 L (12.0-16.0) g/dL Hct 31.5 L (37-47) % MCV 85.4 (80-100) fL MCH 29.5 (25-34) pg MCHC 34.6 (32-36) g/dL RDW Std Deviation 43.5 (36.4-46.3) fL RDW Coeff of Sean 14.0 (11.5-14.5) % Plt Count 268 (130-400) K/uL MPV 10.0 (7.4-10.4) fL Immature Gran % (Auto) 0.3 % Neut % (Auto) 86.9 % Lymph % (Auto) 4.2 % [place] % (Auto) 7.8 % Eos % (Auto) 0.6 % Baso % (Auto) 0.2 % Immature Gran # (Auto) 0.04 H (0.00-0.02) K/uL Neut # (Auto) 10.85 H (1.4-6.5) K/uL Lymph # (Auto) 0.53 L (1.2-3.4) K/uL [place] # (Auto) 0.98 H (0.11-0.59) K/uL Eos # (Auto) 0.07 (0-0.5) K/uL Baso # (Auto) 0.02 (0-0.2) K/uL Sample Site POC pH (7.35-7.45) POC pCO2 (35-46) mmHg POC pO2 (80-95) mmHg POC HCO3 (19-24) jeanie/L POC Total CO2 (24-31) mEq/l POC Base Excess (-9-1.8) jeanie/L ABG pH (Temp Correct) (7.35-7.45) ABG pCO2 (Temp Corrct (35-46) mmHg POC ABG pO2 at Pt Temp POC ABG O2 Sat (90-95) % Dieudonne Test O2 Delivery Device POC O2 Rate Minute Ventilation Tidal Volume PEEP Sodium (136-145) mmol/L Potassium (3.5-5.1) mmol/L Chloride (98-107) mmol/L Carbon Dioxide (21-32) mmol/L Anion Gap (3-11) BUN (7-18) mg/dl Creatinine (0.6-1.2) mg/dl Est Cr Clr Drug Dosing ml/min Est GFR ( Amer) Est GFR (Non-Af Amer) BUN/Creatinine Ratio (10-20) Glucose (70-99) mg/dl POC Glucose 86 (70-99) Calcium (8.5-10.1) mg/dl Phosphorus (2.5-4.9) mg/dl Magnesium (1.8-2.4) mg/dl Lactate Dehydrogenase (84-246) U/L Total Protein Albumin Pleural Fluid Source Pleural Color Pleural Appearance Pleural WBC Pleural RBC Pleural Total Protein Pleural LDH Pleural Glucose Diagnostic Findings Chest x-ray image personally reviewed by me and agree with the following report: XR chest 1V portable CLINICAL HISTORY: Respiratory failure COMPARISON STUDY: 05/30/2019 FINDINGS: There is an endotracheal tube 27 mm above the bobo. A nasogastric tube passes into the stomach. There is slight improvement in the congestive failure and pulmonary edema. There are persistent bilateral pleural effusions with associated basilar opacities likely representing compressive atelectasis.[ IMPRESSION: Slight improvement in the congestive failure/pulmonary edema pattern with persistent bilateral pleural effusions and associated basilar opacities PG Care Time/CCT Total # of Minutes Spent Total Time Spent with Patient: Total time spent is greater than 50% in coordination of care (as documented) at patient's floor/unit and/or counseling patient:
[2019-05-31] MEDS: ATORVASTATIN 40 MG TAB PO SCH (20:34)
--- NOTE | 2019-05-31 21:42 | Procedure Note ---
Procedure Note Date of Service May 31, 2019 Procedure: RIGHT Sided Diagnostic/Therapeutic Thoracentesis Attending: Dr. Colvin APC: Shen Cabrera PA-C Indication: Large RIGHT sided pleural effusion with concerns for worsening compressive atelectasis and subsequent worsening oxygenation issues on the ventilator. Anesthesia: Lidocaine 1% Written consent was obtained and on the chart per attending providers. Prior to procedure, chest x-ray films were reviewed by myself and demonstrated large pleural effusion to the right sided lung field with effusion present to the LEFT-sided lung field as well. A time-out was completed verifying correct patient, procedure, site, positioning, and implant(s) or special equipment if applicable. Utilizing bedside ultrasound, chest wall was evaluated for location for optimal chest tube placement. Location between the posterior ribs were marked on the skin using gentle pressure. The RIGHT sided posterior chest wall was prepped with chlorhexidine and draped in the typical sterile fashion. 5 mL of 1% Lidocaine without epinephrine was used to anesthetize the skin down to the dorsal surface of the rib. Straw colored pleural fluid return confirmed entry into the pleural space. Lidocaine was injected into the pleural space for increased anesthetization. Introducer needle on syringe was inserted in perpendicular fashion taking care to ride just above the dorsal surface of the rib. A small sub-centimeter skin obdulio was placed at the site of entry. Entry into the pleural space was heralded by straw colored pleural return into the syringe while under gentle aspiration. The chest tube was advanced over the introducer needle into the pleural space without resistance and the introducer needle was subsequently removed. The chest drain was attached to a collection bag and three way stopcock. A 60 mL syringe was used to manually extract 1000 mL of straw colored pleural fluid. After no more fluid could be aspirated, the tube was removed under negative pressure. The area was cleansed and dressed with a bandage. Patient tolerated procedure well. No immediate complications noted. Blood Loss: Minimal Complications: None Post procedure Chest X-ray was ordered and reviewed and demonstrated improvement of RIGHT and LEFT sided pleural effusions. Coding CPT Codes Pulmonary/Thoracic - Pulmonary and Thoracic: Thoracentesis w imaging ([id number])
--- NOTE | 2019-05-31 21:51 | Procedure Note ---
Procedure Note Date of Service May 31, 2019 Procedure Date: noted above Procedure: Thoracentesis Pre-procedure Diagnosis: Pleural effusion Post-procedure Diagnosis: same as above Prior to Procedure: Informed Consent: The risks, benefits, indications, potential complications, and alternatives were explained to the patient's family: Son and daughter and informed consent obtained. Attending Staff: Julia Colvin DO Resident/Physician Business Dean: Gwendolyn Cabrera Indications: The patient is a 89-year-old female with persistent bacteremia bilateral pleural effusions and acute hypoxic respiratory failure requiring thoracentesis The identity of the patient was confirmed and a bedside time out was performed. Description of Procedure: Patient positioned, the left posterior axillary line was prepped with chlorhexidine and draped in usual sterile fashion. Ultrasound guidance was used and appropriate fluid pocket was identified. 4 mL of 1% Lidocaine without epinephrine was used to anesthetize the area. A needle was introduced into the pleural space and fluid removed. Total Fluid Removed: 600 ml Color of Fluid: Staw Color Sent for: Gram Stain, culture, cell count, glucose, protein, LDH Complications: None Estimated blood loss: None Coding CPT Codes Pulmonary/Thoracic - Pulmonary and Thoracic: Thoracentesis w/o imaging ([id number])
--- NOTE | 2019-05-31 22:00 | Procedure Note ---
Procedure Note Date of Service May 31, 2019 Procedure Date: Noted above Critical Care Medicine Point of Care Bedside Ultrasound Procedure: Limited Bedside Lung Ultrasound Indication: Hypoxic respiratory failure Attending: Anahi Colvin DO Resident/Physician Cloth Washer Back Tender: Ludin Organs Examined: Lung BLUE point (upper), BLUE point (lower), Phrenic Point (axillary), PLAPS point (posterior) A lines visualized: Absent, Hemithorax: Bilateral B lines visualized: Present, Hemithorax: Bilateral through all lung whittaker Lung Sliding: Present, Hemithorax: Bilateral Tissue-like Sign: Present, Hemithorax: Bilateral posterior lung whittaker Shred Sign: Absent, Hemithorax: Bilateral Quad Sign: Present, Hemithorax: Bilateral posterior lung whittaker Sinusoid Sign: Present, Hemithorax: Bilateral posterior lung whittaker Type of effusions: Simple, Hemithorax: Bilateral Interpleural distance: Approximately 1.6 cm bilaterally Impression: Global type B profile consistent with significant pulmonary edema and simple appearing bilateral pleural effusions. This is compared to the previous lung ultrasound, there is a decrease in total number B lines present which would be possibly business office representative of decreasing pulmonary edema. Decrease in overall size of bilateral pleural effusions they still remain looking simple uncomplicated Images obtained are saved for permanent record Coding CPT Codes Pulmonary/Thoracic - Pulmonary and Thoracic: US, Chest, real time with imaging documentation ([id number])
--- NOTE | 2019-05-31 22:21 | XRay Report ---
SINGLE VIEW CHEST CLINICAL HISTORY: Status post bilateral thoracentesis. FINDINGS: An AP, portable, semierect chest radiograph is compared to study performed earlier the same day 05/31/2019 and correlated with chest CT dated 05/27/2019. The examination is degraded by portable technique and patient rotation. Endotracheal and enteric tubes are unchanged in position. The heart i s enlarged and there is atherosclerotic calcification of the thoracic aorta. Mild pulmonary vascular congestion persists. This has improved from previous. There are small pleural effusions with left bas ilar consolidation. These have decreased in size from previous. No pneumothorax is seen. The skeletal structures are osteopenic. Advanced arthritic changes noted in the shoulders and thoracic spine. IMPRESSION: 1. No pneumothorax is identified post procedure. 2. Cardiomegaly with pulmonary vascular congestion. This has improved from previous. 3. Small pleural effusions with bibasilar consolidation. The pleural effusions have decreased in size from previous. Electronically signed by: Jefe High M.D. 05/31/2019 10:20 PM
[2019-05-31 22:47] LABS: Glucose Pleural Fluid 154 mg/dl
[2019-05-31 22:48] LABS: Albumin Level 2.6 gm/dl (3.4-5.0); Total Protein 6.1 gm/dl (6.4-8.2)
[2019-05-31 22:55] LABS: Total Protein Pleural Fluid 1.8 g/dl
[2019-06-01 00:02] LABS: Appearance Pleural Fluid CLEAR; Color Pleural Fluid YELLOW; RBC Pleural Fluid (A) < 3000 /uL; Source Pleural Fluid LEFT LUNG; Source Pleural Fluid RIGHT LUNG; WBC Pleural Fluid (A) 167 /uL; WBC Pleural Fluid (A) 268 /uL
[2019-06-01 00:04] LABS: Mononuclear WBC Pleural 48.1 %; Mononuclear WBC Pleural 48.3 %; Polynuclear WBC Pleural 51.7 %; Polynuclear WBC Pleural 51.9 %
[2019-06-01] MEDS: LORazepam 1 MG/2 ML VIAL IV PRN ×5 (02:01→22:17)
[2019-06-01] MEDS: LEVALBUTEROL HCL 0.63 MG/3 ML NEB NEB SCH ×4 (02:35→18:57)
[2019-06-01 05:01] LABS: Basophils # (auto) 0.02 K/uL (0-0.2); Basophils % (auto) 0.1 %; Eosinophils # (auto) 0.07 K/uL (0-0.5); Eosinophils % (auto) 0.5 %; Hematocrit (blood only) 33.8 % (37-47); Hemoglobin 11.5 g/dL (12.0-16.0); Immature Granulocytes # (auto) 0.05 K/uL (0.00-0.02); Immature Granulocytes % (auto) 0.3 %; Lymphocytes # (auto) 0.54 K/uL (1.2-3.4); Lymphocytes % (auto) 3.6 %; Mean Corpuscular Volume 87.8 fL (80-100); Monocytes # (auto) 1.05 K/uL (0.11-0.59); Neutrophils % (auto) 88.5 %; Platelet Count 291 K/uL (130-400); RDW Coefficient of Variation 14.3 % (11.5-14.5); RDW Standard Deviation 46.2 fL (36.4-46.3); Red Blood Count 3.85 M/uL (4.2-5.4); White Blood Count 14.93 K/uL (4.8-10.8)
[2019-06-01] MEDS: POTASSIUM CHLORIDE / WTR 10 MEQ/100 ML PLCT IV SCH ×4 (05:05→08:24)
[2019-06-01] MEDS: PEPTAMEN 1.5 CAL 1,000 ML BAG PO SCH (05:10)
[2019-06-01 05:21] LABS: BUN Creatinine Ratio 46.7 (10-20); Creatinine Clr Calc Pharmacy 22.7 ml/min; Est GFR (African American) 43.3; Est GFR (Non-African American) 37.4; Magnesium 1.6 mg/dl (1.8-2.4)
[2019-06-01 05:30] LABS: Phosphorus 2.9 mg/dl (2.5-4.9)
--- NOTE | 2019-06-01 06:40 | Critical Care Progress Note ---
Date of Service June 01, 2019 Assessment & Plan (1) Admitted to intensive care unit: Nighat Greene is a 89 y/o female who presents to ICU for worsening respiratory status from pulmonary edema in setting of acute kidney injury and oliguria, with possible need for thoracentesis intervention. Neuro: - Tylenol 650mg q4h PRN for pain/fever - Lorazepam 0.5mg q6h PRN for anxiety Cardiac/Vascular: PMHx: HTN, HLD - currently stable hemodynamics. - NTG patch for chest discomfort - hold home anti-HTNs - Echocardiogram performed showed LV normal systolic function; no regional wall abnormalities; mild concentric LVH; EF 55-60%; moderate aortic stenosis Pulm: - Did not handle attempt to wean from ventilator - bedside US for considerations for thoracentesis and thoracentesis bilaterally per family's wishes. - Xopenex 0.63mg neb q6h GI: PPx - Protonix 40mg BID; sucralfate 1gm qACHS Zofran for nausea continue with home multivitamin okay Renal/lytes: - elevated creatinine <1 to 1.20 (05/28) to 2.21 in setting of diuresis to improve pulmonary edema, trended down to 1.98 (05/30); improved further 05/31 1.72. - nephro consulted : underwood cath strict I/Os Endo: No hx of DM or thyroid disease Heme: - Leukocytosis of 18.75 on transfer to ICU, presented with value approx 15 that peaked to 20. Improved today to 1.72. - Hgb stable - Platelets WNL ID: - positive blood cultures on 05/28 for strep mitis; 05/29 blood cultures positive for step mitis, 05/29 urine culture positive for MRSA. 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 Also treated for esophageal candidiasis with Diflucan 100mg qAM with completion of 7 day course - ID consult placed DVT ppx:SCDs Resuscitation status: DNR/DNI Subjective Caveat: History Limited by on ventilator. Nighat was reported to have adequate diuresis overnight. Patient lost her lyndsay overnight because it kinked. She is following simple commands this morning. She had bilateral thoracentesis last night. Physical Exam Constitutional: + ill appearing and comfortable Eyes: EOM intact bilaterally Neck: trachea midline Respiratory: no respiratory distress Auscultation: + diminished lung sounds (at bases bilaterally) and + crackles (at bases bilaterally) Cardiovascular: Rate/Rhythm: regular rate and + irregularly irregular Extremities: no edema Gastrointestinal (Abdomen): Percussion/Palpation: abdomen soft; abdomen nontender Musculoskeletal: Head/Neck/Chest: normocephalic Skin: no rashes, warm and dry Neurologic: moves all extremities Psychiatric: Orientation: alert and oriented x 3 Results & Data Vital Signs (Past 12 Hours) Vital Signs Temp Pulse Resp BP Pulse Ox 06/01/19 06:00 84 129/71 98 06/01/19 05:00 85 125/52 L 99 06/01/19 04:30 83 99 06/01/19 04:00 36.8 C 84 118/44 L 98 06/01/19 03:30 87 98 06/01/19 03:01 90 109/46 L 96 06/01/19 02:54 97 H 17 97 06/01/19 02:01 103 H 202/73 H 99 06/01/19 02:00 103 H 99 06/01/19 01:30 80 96 06/01/19 01:00 75 165/51 H 99 06/01/19 00:30 75 100 06/01/19 00:00 37.0 C 79 150/44 H 100 05/31/19 23:44 89 16 97 05/31/19 23:30 77 100 05/31/19 23:00 89 172/66 H 99 05/31/19 22:30 80 99 05/31/19 22:00 81 144/51 H 99 05/31/19 21:52 86 05/31/19 21:30 99 H 98 05/31/19 21:00 93 H 165/104 H 98 05/31/19 20:42 84 147/54 H 98 05/31/19 20:30 87 98 05/31/19 20:00 36.9 C 96 H 153/55 H 98 05/31/19 19:40 87 16 99 05/31/19 19:30 92 H 99 05/31/19 19:02 87 99 05/31/19 19:01 78 138/50 L 99 05/31/19 19:00 87 99 PG Care Time/CCT Total # of Minutes Spent Total Time Spent with Patient: Total time spent is greater than 50% in coordination of care (as documented) at patient's floor/unit and/or counseling patient:
[2019-06-01] MEDS: NOREPINEPHRINE BIT INJ 8 MG in DEXTROSE 5% 500 ML IV SCH (07:12)
--- NOTE | 2019-06-01 07:18 | XRay Report ---
XR chest 1V portable HISTORY: Shortness of breath. COMPARISON: Chest 05/31/2019. FINDINGS: Nasogastric tube terminates below the diaphragm. The tip is not included on this study. End otracheal tube terminates 4 cm from the bobo. No pneumothorax. No pleural effusions. Left basilar a irspace opacity has slightly improved. Mild interstitial thickening is again noted. No evidence for p ulmonary edema. IMPRESSION: 1. Satisfactory support line placement. 2. Improved aeration within the left lung base. Electronically signed by: Tarun Hinojosa M.D. 06/01/2019 7:17 AM
--- NOTE | 2019-06-01 07:47 | Critical Care Progress Note ---
Date of Service June 01, 2019 Assessment & Plan (1) Admitted to intensive care unit: Mrs. Greene is a 89 y/o female who presents to ICU for worsening respiratory status from pulmonary edema in setting of ZAC and CHF, requiring intubation. Now weaning vent as tolerated. Neuro: CAM negative -Fentanyl 25 mics every hour - Lorazepam 0.5mg q4h PRN for anxiety Cardiac/Vascular: PMHx: HTN, HLD - currently stable hemodynamics without use of vasopressors - hold home anti-HTNs - Echocardiogram performed showed LV normal systolic function; no regional wall abnormalities; mild concentric LVH; EF 55-60%; moderate aortic stenosis Pulm: -Patient remains intubated, failed CPAP this a.m. -PRVC 16/400/5/30% -We will revisit goals of care with family and palliative team regarding extubation considering patient's living will states she would not want life- sustaining measures -Bilateral thoracentesis performed to drain pleural effusions yesterday, repeat chest ultrasound showed mild improvement with significant reaccumulation and greater than 5 B-lines mid axillary and posteriorly. - Xopenex 0.63mg neb q6h -We will continue diuresis with Bumex drip and Diuril this a.m. GI: PPx - Protonix 40mg BID; sucralfate 1gm qACHS Zofran for nausea continue with home multivitamin okay Renal/lytes: -Creatinine improved this a.m., will continue to trend -Potassium magnesium repleted, will continue to trend with routine BMPs and replete as necessary - nephro consulted, appreciate recommendations -Continue diuresis as above -Check prealbumin in a.m. : underwood cath strict I/Os Endo: No hx of DM or thyroid disease Heme: -Persistent leukocytosis improved, trend -H&H remained stable, routine CBCs ID: - positive blood cultures for strep mitis, antibiotics broadened to include Rocephin for endocarditis coverage and will continue daptomycin - Esophageal candidiasis with Diflucan 100mg qAM -Urine culture grew MRSA from [facility], suspected colonization, [place] change DVT ppx:SCDs, heparin BID Resuscitation status: DNR I have personally spent 40 minutes of critical care time in the direct m anagement of this patient. This is a life/limb threatening event. This includes time spent evaluating patient, direct bedside care, chart review, placing orders, interpretation of diagnostic studies, discussion with consultants, patient, and family members, as well as other required patient management activities. This time is exclusive of all separately billable procedures, and teaching time and separate from and in addition to any other critical care service time. Thank you for allowing us to participate in the care of this patient. Please refer to my attending physician's documentation for any further recommendations. Supervising Physician Co-Signing Physician Notes I have personally evaluated and examined this patient. I agree with assessment and plan of Brando RAPHAEL. Patient still having diuresis however this is only with continuous Bumex infusion and the addition of Diuril. We drained bilateral pleural effusions yesterday repeat chest ultrasound today demonstrates continued pulmonary edema very slightly improved is no longer anterior but still very significant with greater than 5B lines from the mid axillary line posteriorly. She is on minimal vent settings at this point but RSBI is greater than 150 and that is with 10 of pressure support. 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 I have reviewed the patient's living will she does not want life-sustaining treatment nor artificial hydration and nutrition and no heroic measures in event of cardiac arrest. We are waiting for family members to arrive and discuss liberation from the ventilator versus continuing diuresis and the hope that we can improve her pulmonary mechanics. Patient still has significant sarcopenia and I believe is profoundly weak and while the diuresis may improve her ability to oxygenate is not going to significantly improve her work of breathing. Adding heparin twice daily for DVT prophylaxis increasing Rocephin for endocarditis dosing. MRSA I believe is secondary to colonization [place] was changed yesterday. Deferring decision to continue daptomycin versus continue to infectious disease. I have personally spent 40 minutes of critical care time in the direct management of this patient. This is a life/limb threatening event. This includes time spent evaluating patient, direct bedside care, chart review, placing orders, interpretation of diagnostic studies, discussion with consultants, patient, and/or family members regarding treatment decisions, as well as other required patient management activities. This time is exclusive of all separately billable procedures, and teaching time and separate from and in addition to any other critical care service time. Review of Systems Review of Systems: Unobtainable due to endotracheal tube Physical Exam Eyes: PERRL, conjunctivae normal, anicteric sclerae ENMT: external ear and nose normal, oropharynx normal Neck: trachea midline, no thyromegaly Respiratory: Lungs are coarse and diminished in bases bilaterally, symmetrical chest wall movement, nonlabored breathing with ventilator support Cardiovascular: Rate/Rhythm: regular rate and regular rhythm Heart Sounds: normal S1 and normal S2 Vessels: no JVD Gastrointestinal (Abdomen): normal bowel sounds, soft, nontender, no hepatosplenomegaly Neurologic: Obeys commands, symmetrical movements bilaterally, exam limited secondary to intubation Genitourinary: Indwelling Underwood catheter Results & Data Vital Signs (Past 12 Hours) Vital Signs Temp Pulse Resp BP Pulse Ox 06/01/19 06:00 84 129/71 98 06/01/19 05:00 85 125/52 L 99 06/01/19 04:30 83 99 06/01/19 04:00 36.8 C 84 118/44 L 98 06/01/19 03:30 87 98 06/01/19 03:01 90 109/46 L 96 06/01/19 02:54 97 H 17 97 06/01/19 02:01 103 H 202/73 H 99 06/01/19 02:00 103 H 99 06/01/19 01:30 80 96 06/01/19 01:00 75 165/51 H 99 06/01/19 00:30 75 100 06/01/19 00:00 37.0 C 79 150/44 H 100 05/31/19 23:44 89 16 97 05/31/19 23:30 77 100 05/31/19 23:00 89 172/66 H 99 05/31/19 22:30 80 99 05/31/19 22:00 81 144/51 H 99 05/31/19 21:52 86 05/31/19 21:30 99 H 98 05/31/19 21:00 93 H 165/104 H 98 05/31/19 20:42 84 147/54 H 98 05/31/19 20:30 87 98 05/31/19 20:00 36.9 C 96 H 153/55 H 98 Laboratory Results Laboratory Results - last 24 hr 05/31/19 05/31/19 05/31/19 18:00 19:17 19:24 WBC RBC Hgb Hct MCV MCH MCHC RDW Std Deviation RDW Coeff of Sean Plt Count MPV Immature Gran % (Auto) Neut % (Auto) Lymph % (Auto) [place] % (Auto) Eos % (Auto) Baso % (Auto) Immature Gran # (Auto) Neut # (Auto) Lymph # (Auto) [place] # (Auto) Eos # (Auto) Baso # (Auto) Sodium 130 L Potassium 3.1 L Chloride 92 L Carbon Dioxide 28 Anion Gap 10.0 BUN 58 H Creatinine 1.43 H Est Cr Clr Drug Dosing 20.1 Est GFR ( Amer) 37.5 Est GFR (Non-Af Amer) 32.4 BUN/Creatinine Ratio 40.2 H Glucose 172 H POC Glucose 159 H Calcium 8.1 L Phosphorus Magnesium Lactate Dehydrogenase 333 H Total Protein Albumin Pleural Fluid Source Pleural Color Pleural Appearance Pleural WBC Pleural RBC Pleural Polynuclear % Pleural Mononuclear % Pleural Total Protein Pleural LDH Pleural Glucose 05/31/19 05/31/19 05/31/19 19:24 21:48 21:48 WBC RBC Hgb Hct MCV MCH MCHC RDW Std Deviation RDW Coeff of Sean Plt Count MPV Immature Gran % (Auto) Neut % (Auto) Lymph % (Auto) [place] % (Auto) Eos % (Auto) Baso % (Auto) Immature Gran # (Auto) Neut # (Auto) Lymph # (Auto) [place] # (Auto) Eos # (Auto) Baso # (Auto) Sodium Potassium Chloride Carbon Dioxide Anion Gap BUN Creatinine Est Cr Clr Drug Dosing Est GFR ( Amer) Est GFR (Non-Af Amer) BUN/Creatinine Ratio Glucose POC Glucose Calcium Phosphorus Magnesium Lactate Dehydrogenase Total Protein 6.1 L Albumin 2.6 L Pleural Fluid Source LEFT LUNG Pleural Color YELLOW Pleural Appearance CLEAR Pleural WBC 268 Pleural RBC < 3000 Pleural Polynuclear % 51.7 Pleural Mononuclear % 48.3 Pleural Total Protein Pleural LDH 103 Pleural Glucose 05/31/19 06/01/19 06/01/19 21:48 04:34 04:34 WBC 14.93 H RBC 3.85 L Hgb 11.5 L Hct 33.8 L MCV 87.8 MCH 29.9 MCHC 34.0 RDW Std Deviation 46.2 RDW Coeff of Sean 14.3 Plt Count 291 MPV 10.0 Immature Gran % (Auto) 0.3 Neut % (Auto) 88.5 Lymph % (Auto) 3.6 [place] % (Auto) 7.0 Eos % (Auto) 0.5 Baso % (Auto) 0.1 Immature Gran # (Auto) 0.05 H Neut # (Auto) 13.20 H Lymph # (Auto) 0.54 L [place] # (Auto) 1.05 H Eos # (Auto) 0.07 Baso # (Auto) 0.02 Sodium 131 L Potassium 3.0 L Chloride 93 L Carbon Dioxide 29 Anion Gap 9.0 BUN 59 H Creatinine 1.27 H Est Cr Clr Drug Dosing 22.7 Est GFR ( Amer) 43.3 Est GFR (Non-Af Amer) 37.4 BUN/Creatinine Ratio 46.7 H Glucose 159 H POC Glucose Calcium 8.0 L Phosphorus 2.9 Magnesium 1.6 L Lactate Dehydrogenase Total Protein Albumin Pleural Fluid Source RIGHT LUNG Pleural Color YELLOW Pleural Appearance CLEAR Pleural WBC 167 Pleural RBC < 3000 Pleural Polynuclear % 51.9 Pleural Mononuclear % 48.1 Pleural Total Protein 1.8 Pleural LDH Pleural Glucose 154 06/01/19 06/01/19 06:24 11:51 WBC RBC Hgb Hct MCV MCH MCHC RDW Std Deviation RDW Coeff of Sean Plt Count MPV Immature Gran % (Auto) Neut % (Auto) Lymph % (Auto) [place] % (Auto) Eos % (Auto) Baso % (Auto) Immature Gran # (Auto) Neut # (Auto) Lymph # (Auto) [place] # (Auto) Eos # (Auto) Baso # (Auto) Sodium Potassium Chloride Carbon Dioxide Anion Gap BUN Creatinine Est Cr Clr Drug Dosing Est GFR ( Amer) Est GFR (Non-Af Amer) BUN/Creatinine Ratio Glucose POC Glucose 149 H 144 H Calcium Phosphorus Magnesium Lactate Dehydrogenase Total Protein Albumin Pleural Fluid Source Pleural Color Pleural Appearance Pleural WBC Pleural RBC Pleural Polynuclear % Pleural Mononuclear % Pleural Total Protein Pleural LDH Pleural Glucose Medications Administered Home Medications acetaminophen [Tylenol] 650 mg PO BID 05/11/19 [History Confirmed 05/22/19] aspirin 325 mg PO HS 05/11/19 [History Confirmed 05/22/19] atorvastatin 40 mg PO HS 05/11/19 [History Confirmed 05/22/19] cetirizine [Zyrtec] 10 mg PO DAILY PRN 05/11/19 [History Confirmed 05/22/19] multivitamin 1 tab PO QAM 05/11/19 [History Confirmed 05/22/19] omeprazole 20 mg PO QAM 05/11/19 [History Confirmed 05/22/19] valsartan-hydrochlorothiazide 1 tab PO QAM 05/11/19 [History Confirmed 05/22/19] verapamil 120 mg PO HS 05/11/19 [History Confirmed 05/22/19] Active Medications Acetaminophen (Tylenol) 650 mg PO Q4H PRN PRN Reason: Pain or Fever Stop: 06/21/19 13:29 Al Hydrox/Mg Hydrox/Simethicone (Maalox) 15 ml PO Q4H PRN PRN Reason: Dyspepsia Stop: 06/21/19 13:29 Atorvastatin Calcium (Lipitor) 40 mg PO HS [facility] Stop: 06/21/19 20:59 Last Admin: 05/31/19 20:34 Dose: 40 mg Documented by: Cetirizine HCl (Zyrtec) 10 mg PO DAILY PRN PRN Reason: Allergy Symptoms Stop: 06/21/19 13:29 Enteral Nutritional Formula (Peptamen 1.5 Rj) 1,000 ml PO [facility]; Protocol Stop: 06/29/19 19:59 Last Admin: 06/01/19 05:10 Dose: 1,000 ml Documented by: Fentanyl Citrate (Fentanyl Citrate) 25 mcg IV Q1H PRN PRN Reason: Moderate Pain (4,5,6) Stop: 06/13/19 04:58 Fluconazole (Diflucan) 100 mg PO QAM [facility]; Protocol Stop: 06/05/19 09:01 Last Admin: 06/01/19 08:24 Dose: 100 mg Documented by: Heparin Sodium (Porcine) (Heparin Sodium (Porcine)) 5,000 units SQ Q12H [facility] Stop: 07/01/19 09:59 Last Admin: 06/01/19 11:46 Dose: 5,000 units Documented by: Daptomycin 400 mg/ Syringe 8 mls @ 0 mls/min IV Q48H [facility]; Protocol Stop: 06/12/19 11:59 Last Admin: 05/31/19 11:41 Dose: 4 mls/min Documented by: Norepinephrine Bitartrate 8 mg (/ Dextrose) 508 mls @ 0 mls/hr IV .Q0M [facility]; Protocol Stop: 06/29/19 05:59 Last Admin: 06/01/19 07:12 Dose: Not Given Documented by: Bumetanide 10 mg/ Dextrose 50 mls @ 5 mls/hr IV .Q10H [facility] Stop: 06/29/19 06:14 Last Admin: 06/01/19 08:10 Dose: 1 mg/hr, 5 mls/hr Documented by: Lorazepam (Ativan) 1 mg in 2 mls @ 2 mls/min IV Q4H PRN PRN Reason: AGITATION/SEDATION Stop: 06/29/19 12:02 Last Admin: 06/01/19 08:36 Dose: 2 mls/min Documented by: Famotidine 20 mg/ Syringe 5 mls @ 2.5 mls/min IV DAILY [facility] Stop: 06/30/19 08:59 Last Admin: 06/01/19 08:11 Dose: 2.5 mls/min Documented by: Ceftriaxone Sodium 2,000 mg/ (Dextrose) 70 mls @ 140 mls/hr IV Q24H [facility] Stop: 07/13/19 09:59 Last Admin: 06/01/19 11:46 Dose: 140 mls/hr Documented by: Levalbuterol HCl (Xopenex 0.63 Mg/3 Ml Neb) 0.63 mg NEB Q6R [facility] Stop: 06/22/19 19:59 Last Admin: 06/01/19 07:49 Dose: 0.63 mg Documented by: Multivitamins/Minerals (Cerovite Liquid) 15 ml PO QAM [facility] Stop: 06/30/19 08:59 Last Admin: 06/01/19 08:24 Dose: 15 ml Documented by: Ondansetron HCl (Zofran) 4 mg IV Q6H PRN PRN Reason: Nausea Stop: 06/21/19 13:29 Last Admin: 05/28/19 19:49 Dose: 4 mg Documented by: Potassium Chloride (Teri Ciel Elix) 60 meq NG TODAY@2000 [facility] Stop: 06/01/19 23:59 Sucralfate (Carafate) 1 gm PO ACHS [facility] Stop: 06/21/19 20:59 Last Admin: 06/01/19 08:06 Dose: 1 gm Documented by: Valsartan (Diovan) 320 mg PO QAM [facility] Stop: 06/22/19 08:59 Last Admin: 05/29/19 07:40 Dose: 320 mg Documented by: Verapamil HCl (Calan Sr) 120 mg PO HS [facility] Stop: 06/21/19 20:59 Last Admin: 05/28/19 20:22 Dose: 120 mg Documented by: PG Care Time/CCT Critical Care Time: Yes Total Critical Care Time: 40
[2019-06-01] MEDS: SUCRALFATE 1 GM/10 ML UDC PO SCH ×4 (08:06→20:16)
[2019-06-01] MEDS: MAGNESIUM SULFATE / D5W 1 GM/100 ML BAG IV SCH ×2 (08:06→09:06)
[2019-06-01] MEDS: BUMETANIDE 10 MG in DEXTROSE 5% 10 ML IV SCH ×2 (08:10→17:22)
[2019-06-01] MEDS: FAMOTIDINE 20 MG in SYRINGE 3 ML IV SCH (08:11)
[2019-06-01] MEDS: MULTI VIT W/MINERALS LIQUID 15 ML UDP PO SCH (08:24)
[2019-06-01] MEDS: FLUCONAZOLE 100 MG TAB PO SCH (08:24)
[2019-06-01] MEDS ORDERED: LACTULOSE SYRUP 20 GM/30 ML UDC NG ONE (08:30)
[2019-06-01] MEDS ORDERED: CHLOROTHIAZIDE SODIUM 500 MG in DEXTROSE 5% 50 ML IV ONE (09:00)
--- NOTE | 2019-06-01 09:32 | Palliative Care Consultation ---
Date of Consultation June 01, 2019 Assessment & Plan (1) Goals of care, counseling/discussion: -89 year old female patient with PMH htn, GI bleed, migraines and UTI, presented to the hospital with fatigue and SOB, and left sided chest pain. She was found to have GI bleed with heme positive stool, hgb 8.4. GI was consulted and patient underwent EGD and was found to have gastritis and esophageal plaques consistent with candidiasis. Echocardiogram was completed showing preserved EF and moderate aortic stenosis. Patient continued to have abnormally high leukocytosis, but unclear source. CXR showed no acute process. Blood cultures were drawn which were positive for strep mitis. Patient is on multiple abx for endocarditis. She was having worsening respiratory failure with decompensated diastolic heart failure. She was initially placed on bipap, but continued to worsen so she was transferred to ICU and intubated. Her kidney function also worsened with creatinine 2.1. She was placed on Bumex gtt for diuresis. Patient has been diuresing well. CXR improved. Creatinine improved to 1.27. Patient remains intubated, failed CPAP trial this morning. See drug abuse technician and hospitalist notes for details. Given patient's advanced age and multiple comorbidities, palliative care is consulted to discuss goals of care and provide support. -Met with patient, Dr. Colvin, patient's son Akhil and daughter in room 107. We stepped out of room to discuss. -Dr. Colvin gave detailed medical update to patient's children. They both verbalized understanding of patient's guarded prognosis. After discussion, patient's children both stated that they would like to continue with full treatment today. THey'd like to get opinions from patient's other physicians (hospitalist, weather teacher and display decorator) before making any decisions. Patient does have a living will which states that she would want two physicians to determine if she was truly end-stage or terminal without meaningful hope of recovery if there was a decision about changing goals of care that needed to be made. -I also discussed some long-term goals with patient's children in the case that she does improve and makes it out of the hospital. -For now, continue with full treatment. Family is going to discuss amongst themselves and we will continue this conversation tomorrow. Certainly, if patient acutely decompensates or declines, family is leaning towards transitioning to comfort measures. -We will follow. (2) Septicemia: (3) Acute respiratory failure with hypoxia: (4) Acute on chronic diastolic CHF (congestive heart failure): (5) Esophageal candidiasis: Supervising Physician Co-Signing Physician Notes Chart reviewed, pt seen and examined in the ICU - daughter at bedside. Collaborated with DONAVON Rodrigez. PE: Pt intubated, less sedated, trying to use tongue to remove ET tube. HEENT: EOMI Resp: intubated, pt given Fentanyl - more calm CV: RR Abd: not distended Neuro: sedated Agree with above note, assessment and plan - will cont to follow and assist family with medical decision making History of Present Illness Attending Physician: Emerald Carias MD History of Present Illness This 89 year old female patient with PMH htn, GI bleed, migraines and UTI, presented to the hospital with fatigue and SOB, and left sided chest pain. She was found to have GI bleed with heme positive stool, hgb 8.4. GI was consulted and patient underwent EGD and was found to have gastritis and esophageal plaques consistent with candidiasis. Echocardiogram was completed showing preserved EF and moderate aortic stenosis. Patient continued to have abnormally high leukocytosis, but unclear source. CXR showed no acute process. Blood cultures were drawn which were positive for strep mitis. Patient is on multiple abx for endocarditis. She was having worsening respiratory failure with decompensated diastolic heart failure. She was initially placed on bipap, but continued to worsen so she was transferred to ICU and intubated. Her kidney function also worsened with creatinine 2.1. She was placed on Bumex gtt for diuresis. Patient has been diuresing well. CXR improved. Creatinine improved to 1.27. Patient remains intubated, failed CPAP trial this morning. See drug abuse technician and hospitalist notes for details. Given patient's advanced age and multiple comorbidities, palliative care is consulted to discuss goals of care and provide support. Thank you kindly for this consult. I will follow as needed. Allergies Allergy/AdvReac Type Severity Reaction Status Date / Time Sulfa (Sulfonamide AdvReac Unknown Unknown Unverified 05/22/19 11:08 Antibiotics) Home Medications Home Medications Medication Instructions Recorded Confirmed Type acetaminophen [Tylenol] 650 mg PO BID 05/11/19 05/22/19 History aspirin 325 mg PO HS 05/11/19 05/22/19 History atorvastatin 40 mg PO HS 05/11/19 05/22/19 History cetirizine [Zyrtec] 10 mg PO DAILY PRN 05/11/19 05/22/19 History multivitamin 1 tab PO QAM 05/11/19 05/22/19 History omeprazole 20 mg PO QAM 05/11/19 05/22/19 History valsartan-hydrochlorothiazide 1 tab PO QAM 05/11/19 05/22/19 History verapamil 120 mg PO HS 05/11/19 05/22/19 History Patient History Medical History Essential hypertension (Chronic) GI bleed (Acute) Acute UTI (Inactive) Acute hyponatremia (Inactive) Migraines Surgical History H/O: hysterectomy Family History Other Family history non-contributory Social History Preferred Language: Malay Communication Ability: Effective 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 Beliefs That Will Affect Care: None marital status: / Current Living Situation: Personal Care Facility current occupational status: retired Feels Safe at Home: Yes Safety Concerns: Feels Safe At This Time Smoking Status: Never smoker Hx Alcohol Use: No Hx Substance Use: No Review of Systems Review of Systems: Unobtainable due to endotracheal tube Physical Exam Constitutional: + ill appearing and + frail appearing Neck: normal visual inspection Respiratory: + tachypneic Auscultation: lungs clear to auscultation bilaterally and + diminished lung sounds Cardiovascular: Rate/Rhythm: regular rate and regular rhythm Gastrointestinal (Abdomen): Inspection/Auscultation: abdomen normal to inspection and normal bowel sounds Neurologic: moves all extremities (following commands on ventilator) and awake Results & Data Vital Signs (Past 12 Hours) Vital Signs Temp Pulse Resp BP Pulse Ox 06/01/19 07:55 90 28 H 99 06/01/19 06:00 84 129/71 98 06/01/19 05:00 85 125/52 L 99 06/01/19 04:30 83 99 06/01/19 04:00 36.8 C 84 118/44 L 98 06/01/19 03:30 87 98 06/01/19 03:01 90 109/46 L 96 06/01/19 02:54 97 H 17 97 06/01/19 02:01 103 H 202/73 H 99 06/01/19 02:00 103 H 99 06/01/19 01:30 80 96 06/01/19 01:00 75 165/51 H 99 06/01/19 00:30 75 100 06/01/19 00:00 37.0 C 79 150/44 H 100 05/31/19 23:44 89 16 97 05/31/19 23:30 77 100 05/31/19 23:00 89 172/66 H 99 05/31/19 22:30 80 99 05/31/19 22:00 81 144/51 H 99 05/31/19 21:52 86 05/31/19 21:30 99 H 98 PG Care Time/CCT Total # of Minutes Spent Total Time Spent with Patient: Total time spent is greater than 50% in coordination of care (as documented) at patient's floor/unit and/or counseling patient: Time Spent Midlevel 75 minutes with >50% of the time spent at bedside with IDT and family discussing condition and GOC.
--- NOTE | 2019-06-01 09:35 | Nephrology Progress Note ---
Date of Service June 01, 2019 Assessment & Plan (1) ZAC (acute kidney injury): -- Baseline creatinine 0.8 mg/dL -- Creatinine improving -- Hypokalemic + magnesium slightly low - replacement is being provided -- Metabolic profile monitored at least twice daily -- Clinical presentation consistent with ATN associated with acute on chronic CHF, medications, iodinated contrast -- Urine studies demonstrate persistent microscopic hematuria and pyuria, culture + MRSA: catheter exchanged yesterday -- Continue to hold WILBERT/ARB -- Document I/O's (2) MARTINEZ (dyspnea on exertion): -- Clinically consistent with Acute CHF with interstitial edema -- Improving with diuretics, remains on Bumex gtt -- Possible extubation today -- Remains on Bumex gtt -- IV Diuril provided x 1 dose yesterday (3) GI bleed: -- EGD on 05/23 showed esophagitis consistent with candidiasis along with gastritis -- PPI PO BID -- Fluconazole for esophageal candidiasis (4) Essential hypertension: -- Hold HCTZ and valsartan Subjective No acute events overnight. Remains intubated on CPAP. RR increased. Plan to extubate today. No fevers. Remains in a negative fluid balance on Bumex gtt. 1 x dose of Diuril given yesterday. Additional dose provided this morning. Review of Systems Review of Systems: Unobtainable due to endotracheal tube Physical Exam Constitutional: + frail appearing; no acute distress Eyes: no scleral abnormality and no corneal abnormality ENMT: ETT Neck: normal visual inspection and trachea midline Respiratory: Improving breath sounds, decreased rales Cardiovascular: Rate/Rhythm: regular rate and regular rhythm Heart Sounds: normal S1 and normal S2 Vessels: + JVD Extremities: no edema Gastrointestinal (Abdomen): Percussion/Palpation: abdomen soft; abdomen nontender Musculoskeletal: Extremities: no cyanosis and no clubbing Skin: + turgor decreased; no rashes Neurologic: Motor/Sensory: no tremor and no asterixis Psychiatric: awake, opens eyes to voice Genitourinary: Benitez draining clear yellow urine Results & Data Vital Signs (Past 12 Hours) Vital Signs Temp Pulse Resp BP Pulse Ox 06/01/19 07:55 90 28 H 99 06/01/19 06:00 84 129/71 98 06/01/19 05:00 85 125/52 L 99 06/01/19 04:30 83 99 06/01/19 04:00 36.8 C 84 118/44 L 98 06/01/19 03:30 87 98 06/01/19 03:01 90 109/46 L 96 06/01/19 02:54 97 H 17 97 06/01/19 02:01 103 H 202/73 H 99 06/01/19 02:00 103 H 99 06/01/19 01:30 80 96 06/01/19 01:00 75 165/51 H 99 06/01/19 00:30 75 100 06/01/19 00:00 37.0 C 79 150/44 H 100 05/31/19 23:44 89 16 97 05/31/19 23:30 77 100 05/31/19 23:00 89 172/66 H 99 05/31/19 22:30 80 99 05/31/19 22:00 81 144/51 H 99 05/31/19 21:52 86 05/31/19 21:30 99 H 98 Laboratory Results Laboratory Results - last 24 hr 05/31/19 05/31/19 05/31/19 18:00 19:17 19:24 WBC RBC Hgb Hct MCV MCH MCHC RDW Std Deviation RDW Coeff of Sean Plt Count MPV Immature Gran % (Auto) Neut % (Auto) Lymph % (Auto) Lassen % (Auto) Eos % (Auto) Baso % (Auto) Immature Gran # (Auto) Neut # (Auto) Lymph # (Auto) Lassen # (Auto) Eos # (Auto) Baso # (Auto) Sodium 130 L Potassium 3.1 L Chloride 92 L Carbon Dioxide 28 Anion Gap 10.0 BUN 58 H Creatinine 1.43 H Est Cr Clr Drug Dosing 20.1 Est GFR ( Amer) 37.5 Est GFR (Non-Af Amer) 32.4 BUN/Creatinine Ratio 40.2 H Glucose 172 H POC Glucose 159 H Calcium 8.1 L Phosphorus Magnesium Lactate Dehydrogenase 333 H Total Protein Albumin Pleural Fluid Source Pleural Color Pleural Appearance Pleural WBC Pleural RBC Pleural Polynuclear % Pleural Mononuclear % Pleural Total Protein Pleural LDH Pleural Glucose 05/31/19 05/31/19 05/31/19 19:24 21:48 21:48 WBC RBC Hgb Hct MCV MCH MCHC RDW Std Deviation RDW Coeff of Sean Plt Count MPV Immature Gran % (Auto) Neut % (Auto) Lymph % (Auto) Lassen % (Auto) Eos % (Auto) Baso % (Auto) Immature Gran # (Auto) Neut # (Auto) Lymph # (Auto) Lassen # (Auto) Eos # (Auto) Baso # (Auto) Sodium Potassium Chloride Carbon Dioxide Anion Gap BUN Creatinine Est Cr Clr Drug Dosing Est GFR ( Amer) Est GFR (Non-Af Amer) BUN/Creatinine Ratio Glucose POC Glucose Calcium Phosphorus Magnesium Lactate Dehydrogenase Total Protein 6.1 L Albumin 2.6 L Pleural Fluid Source LEFT LUNG Pleural Color YELLOW Pleural Appearance CLEAR Pleural WBC 268 Pleural RBC < 3000 Pleural Polynuclear % 51.7 Pleural Mononuclear % 48.3 Pleural Total Protein Pleural LDH 103 Pleural Glucose 05/31/19 06/01/19 06/01/19 21:48 04:34 04:34 WBC 14.93 H RBC 3.85 L Hgb 11.5 L Hct 33.8 L MCV 87.8 MCH 29.9 MCHC 34.0 RDW Std Deviation 46.2 RDW Coeff of Sean 14.3 Plt Count 291 MPV 10.0 Immature Gran % (Auto) 0.3 Neut % (Auto) 88.5 Lymph % (Auto) 3.6 Lassen % (Auto) 7.0 Eos % (Auto) 0.5 Baso % (Auto) 0.1 Immature Gran # (Auto) 0.05 H Neut # (Auto) 13.20 H Lymph # (Auto) 0.54 L Lassen # (Auto) 1.05 H Eos # (Auto) 0.07 Baso # (Auto) 0.02 Sodium 131 L Potassium 3.0 L Chloride 93 L Carbon Dioxide 29 Anion Gap 9.0 BUN 59 H Creatinine 1.27 H Est Cr Clr Drug Dosing 22.7 Est GFR ( Amer) 43.3 Est GFR (Non-Af Amer) 37.4 BUN/Creatinine Ratio 46.7 H Glucose 159 H POC Glucose Calcium 8.0 L Phosphorus 2.9 Magnesium 1.6 L Lactate Dehydrogenase Total Protein Albumin Pleural Fluid Source RIGHT LUNG Pleural Color YELLOW Pleural Appearance CLEAR Pleural WBC 167 Pleural RBC < 3000 Pleural Polynuclear % 51.9 Pleural Mononuclear % 48.1 Pleural Total Protein 1.8 Pleural LDH Pleural Glucose 154 06/01/19 06:24 WBC RBC Hgb Hct MCV MCH MCHC RDW Std Deviation RDW Coeff of Sean Plt Count MPV Immature Gran % (Auto) Neut % (Auto) Lymph % (Auto) Lassen % (Auto) Eos % (Auto) Baso % (Auto) Immature Gran # (Auto) Neut # (Auto) Lymph # (Auto) Lassen # (Auto) Eos # (Auto) Baso # (Auto) Sodium Potassium Chloride Carbon Dioxide Anion Gap BUN Creatinine Est Cr Clr Drug Dosing Est GFR ( Amer) Est GFR (Non-Af Amer) BUN/Creatinine Ratio Glucose POC Glucose 149 H Calcium Phosphorus Magnesium Lactate Dehydrogenase Total Protein Albumin Pleural Fluid Source Pleural Color Pleural Appearance Pleural WBC Pleural RBC Pleural Polynuclear % Pleural Mononuclear % Pleural Total Protein Pleural LDH Pleural Glucose PG Care Time/CCT Critical Care Time: Yes Total Critical Care Time: 30
--- NOTE | 2019-06-01 09:38 | Cardiology Progress Note ---
Date of Service June 01, 2019 Assessment & Plan (1) Acute respiratory failure with hypoxia: Her decompensation likely secondary to CHF. Remains on IV Bumex drip. (2) Acute on chronic diastolic CHF (congestive heart failure): Improving with intravenous Bumex. Diuretic management per Dr. Gaviria and ICU team. (3) Aortic stenosis: Her aortic valve stenosis is moderate in degree. (4) Gram positive sepsis: Presume that the patient has SBE. Four sets of blood cultures have grown out strep mitis/oralis. Would recommend a longer course of antibiotics. (5) Essential hypertension: Normotensive. (6) Hypercholesterolemia: Continue atorvastatin. Subjective Mrs. Greene remains sedated and intubated in the intensive care unit. Physical Exam Physical Exam: In general is a well-developed well-nourished white female seated at the bedside without complaints. HEENT exam is notes an ET tube in place. Neck is supple with full carotid upstrokes. A transmitted murmur is noted bilaterally. Jugular venous pressure is difficult to assess. There is no thyromegaly. Cardiovascular exam reveals a regular rhythm with a 2/6 crescendo decrescendo systolic murmur is heard loudest at the base. S2 is audible at the apex. Lungs are clear without rales, rhonchi, wheezes. Abdomen is soft nontender without bruits. Extremities reveal intact radial artery pulses bilaterally. There is no peripheral edema. Results & Data Vital Signs (Past 12 Hours) Vital Signs Temp Pulse Resp BP Pulse Ox 06/01/19 07:55 90 28 H 99 06/01/19 06:00 84 129/71 98 06/01/19 05:00 85 125/52 L 99 06/01/19 04:30 83 99 06/01/19 04:00 36.8 C 84 118/44 L 98 06/01/19 03:30 87 98 06/01/19 03:01 90 109/46 L 96 06/01/19 02:54 97 H 17 97 06/01/19 02:01 103 H 202/73 H 99 06/01/19 02:00 103 H 99 06/01/19 01:30 80 96 06/01/19 01:00 75 165/51 H 99 06/01/19 00:30 75 100 06/01/19 00:00 37.0 C 79 150/44 H 100 05/31/19 23:44 89 16 97 05/31/19 23:30 77 100 05/31/19 23:00 89 172/66 H 99 05/31/19 22:30 80 99 05/31/19 22:00 81 144/51 H 99 05/31/19 21:52 86 Laboratory Results CBC notes hemoglobin 11.5, hematocrit 33.8, white count 14.93, platelet count of 291. Electrolytes noted a sodium of 131, potassium 3.0, chloride 93, bicarb 29, BUN 59, creatinine 1.27, glucose of 159. PG Care Time/CCT Total # of Minutes Spent Total Time Spent with Patient: Total time spent is greater than 50% in coordination of care (as documented) at patient's floor/unit and/or counseling patient: 40 minutes.
[2019-06-01] MEDS ORDERED: POTASSIUM CHLORIDE 20 MEQ/15 ML UDC NG SCH ×2 (10:15→20:00)
[2019-06-01] MEDS: cefTRIAXone SODIUM 2,000 MG in DEXTROSE 5% 50 ML IV SCH (11:46)
[2019-06-01] MEDS: HEPARIN SOD 5,000 UNIT/0.5 ML VIAL SQ SCH ×2 (11:46→22:21)
[2019-06-01] MEDS: fentaNYL citrate 100 MCG/2 ML VIAL IV PRN ×5 (12:15→21:58)
--- NOTE | 2019-06-01 13:51 | Progress Note ---
DATE: 06/01/2019 PULMONARY MEDICINE PROGRESS NOTE Chart reviewed, the patient examined. SUBJECTIVE: The patient is sedated, no sign of respiratory distress while being mechanically ventilated. OBJECTIVE: CURRENT VITAL SIGNS: Blood pressure 116/41, pulse 82 and irregular, respiratory rate 16, temperature 36.8, O2 sat 98% on 40% FIO2. SKIN: Without lesion. HEENT: Atraumatic, normocephalic. PERRLA. LUNGS: Improved aeration at the bases. CARDIAC: Regular rate and rhythm, a grade 2/6 crescendo decrescendo systolic murmur heard at the lower left sternal border. No S3. ABDOMEN: Soft, scaphoid. No evidence of hepatosplenomegaly. EXTREMITIES: No pedal edema, clubbing or cyanosis. NEUROLOGICAL: Difficult to assess. LABORATORY DATA: Currently on IV Bumex drip. A chest x-ray post-thoracentesis shows satisfactory support line placement with marked improvement in both bases, mild residual interstitial thickening. No evidence of pulmonary edema. No evidence of pneumothorax post-thoracentesis, right and left. White count 14,000, H and H 11.5 and 33.8. ABGs yesterday, pH 7.44, pCO2 of 38, pO2 of 105 on current settings. Potassium today 3.0, BUN 59, creatinine 1.27. Most recent, the pleural fluid was sterile bilaterally and blood cultures from 05/30 negative to date. Pleural fluid from the right pleural space was transudative. ASSESSMENT: An 89-year-old with [id number] aortic valve stenosis, acute on chronic diastolic heart failure with probable endocarditis, currently on effective treatment, status post bilateral thoracentesis for transudative effusions with no overt signs of pulmonary edema clinically or on chest radiograph. I have spoken with the patient's family, I think at this point within the next 24-48 hours or sooner, the patient needs to be evaluated for possible extubation as her chest x-ray and lungs are as clear as I have heard them since admission. Ventilator management as per Dr. Colvin.
--- NOTE | 2019-06-01 14:14 | Infectious Disease Progress Nt ---
Date of Service June 01, 2019 Assessment & Plan (1) Gram positive sepsis: repeat cutlures negative to date, continue to follow. agree with Rocephin, can stop dapto. follow culture results. Agree she will need prolonged course of IV abx for suspected IE and . Unclear source, GI, oral, no signs of skin/soft tissue infection but with cultures growing S. mitis, suspect oral source. .follow culture results. would suggest 6 weeks IV Rocephin with weekly cbc, cmp, esr. Subjective s/p intubatioin, thorocenthesis yesterday, cultures pending. Repeat blood cultures from 05/30 negative to date. Initial cultures from 05/28 and repeat cult ures 05/29 - S. mitis. now on ctx as well as dapto, remains on pressors. afebrile overnight. wbc 14, creat improvd to 1.2. potential extubation soon, cxr with improving pulm edema. Results & Data Vital Signs (Past 12 Hours) Vital Signs Temp Pulse Resp BP Pulse Ox 06/01/19 13:30 80 122/39 L 97 06/01/19 13:00 80 145/42 H 98 06/01/19 12:30 82 116/41 L 98 06/01/19 12:00 85 153/49 H 98 06/01/19 11:30 86 147/46 H 97 06/01/19 11:00 83 147/52 H 98 06/01/19 10:38 82 16 97 06/01/19 10:30 82 124/44 L 97 06/01/19 10:09 16 06/01/19 10:00 82 158/53 H 98 06/01/19 09:30 82 154/78 H 98 06/01/19 09:00 84 136/47 L 98 06/01/19 08:30 87 151/61 H 98 06/01/19 08:01 36.8 C 94 H 160/51 H 97 06/01/19 07:55 90 28 H 99 06/01/19 07:00 81 128/42 L 97 06/01/19 06:00 84 129/71 98 06/01/19 05:00 85 125/52 L 99 06/01/19 04:30 83 99 06/01/19 04:00 36.8 C 84 118/44 L 98 06/01/19 03:30 87 98 06/01/19 03:01 90 109/46 L 96 06/01/19 02:54 97 H 17 97 Laboratory Results Microbiology 05/31/19 21:48 Pleural Fluid Gram Stain - Final 05/31/19 21:48 Pleural Fluid Aerobic and Anaerobic Culture - Preliminary No growth to date. 05/31/19 21:48 Pleural Fluid Gram Stain - Final 05/31/19 21:48 Pleural Fluid Aerobic and Anaerobic Culture - Preliminary No growth to date. 05/30/19 16:12 Blood Aerobic Blood Culture - Preliminary No growth in Aerobic bottle after 24 hours. 05/30/19 16:12 Blood Anaerobic Blood Culture - Preliminary No growth in Anaerobic bottle after 24 hours. 05/30/19 16:10 Blood Aerobic Blood Culture - Preliminary No growth in Aerobic bottle after 24 hours. 05/30/19 16:10 Blood Anaerobic Blood Culture - Preliminary No growth in Anaerobic bottle after 24 hours. 05/29/19 11:00 Blood Aerobic Blood Culture - Preliminary Streptococcus mitis/oralis 05/29/19 11:00 Blood Anaerobic Blood Culture - Preliminary No growth in Anaerobic bottle after 48 hours. 05/29/19 10:53 Blood Aerobic Blood Culture - Preliminary Streptococcus mitis/oralis 05/29/19 10:53 Blood Anaerobic Blood Culture - Preliminary No growth in Anaerobic bottle after 48 hours. 05/29/19 11:07 Urine,Indwelling Cath Urine Culture - Final Staph aureus MRSA 05/28/19 14:05 Blood Aerobic Blood Culture - Final Streptococcus mitis/oralis 05/28/19 14:05 Blood Anaerobic Blood Culture - Final Streptococcus mitis/oralis 05/28/19 13:57 Blood Aerobic Blood Culture - Final Streptococcus mitis/oralis#2 05/28/19 13:57 Blood Anaerobic Blood Culture - Final Streptococcus mitis/oralis 05/23/19 10:15 Throat Fungal Smear - Final 05/23/19 10:15 Throat Fungal Culture - Final Cate albicans 05/22/19 11:17 Urine,Clean Catch Urine Culture - Final More than three types of organisms present, all high counts mixed probable skin natalie - No further identifications or sensitivities to follow.
--- NOTE | 2019-06-01 20:00 | Hospitalist Progress Note ---
Date of Service June 01, 2019 Assessment & Plan (1) Septicemia: Presented with progressive fatigue and dyspnea since the end of March, but no reports of fevers. 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, no LILIAN performed due to decompensated condition as below -Started IV vancomycin but then infectious disease switched her to IV daptomycin given renal failure -Rocephin added on 05/31 as Streptococcus mitis can develop resistance to daptomycin -Consult infectious disease-appreciate recommendations -Continue IV daptomycin for MRSA UTI, however today ID recommended discontinuing -Benitez catheter exchanged on 05/31 -Would likely just treat empirically with 6 weeks of IV Rocephin -Follow blood cultures until sterile-repeat cultures on 05/30 are no growth to date Blood pressures are stable Leukocytosis is improved overall but is slightly increased from yesterday (2) Acute respiratory failure with hypoxia: Secondary to acute on chronic diastolic CHF, with bilateral pleural effusions and pulmonary edema worsening on chest x-ray on 05/29 On the morning of 05/30, she continued to be in significant respiratory distress and developed worsening acute hypercapnic and hypoxic respiratory failure despite being on BiPAP-was intubated and mechanically ventilated With bilateral pleural effusions that were large now status post thoracenteses on 05/31 with 1 L removed from the left and 600 mL's from the right-transudate of Chest x-ray continues to be improved with less pulmonary edema today, fleet maintenance foreman reports thoracic ultrasound at the bedside is also improving with less B-lines She is now putting out quite a bit of urine and is likely having a post ATN diuresis, but remains on Bumex drip and getting Diuril daily -Continue diuresis with Bumex drip and Diuril and wean off likely soon -Continued stay in the ICU-appreciate critical care management -Follow chest x-ray in the morning -Hopeful to extubate tomorrow (3) Acute on chronic diastolic CHF (congestive heart failure): Has had progressive dyspnea on exertion over the last 2 months, much worse in the last week prior to admission, and then significantly worse since receiving PRBC transfusion for anemia Echocardiogram with moderate aortic stenosis with preserved EF Question if this is been exacerbated by her septicemia and perhaps by suspected infective endocarditis She had multiple doses of IV Lasix and was still requiring BiPAP and eventually mechanical ventilation as above Her acute kidney injury is now significantly improved and she is having excellent urine output as above Chest x-ray continues to improve as above -Received 1 dose of IV albumin x1 as per fleet maintenance foreman on 05/29 and again on 05/31 after thoracentesis -Continue Bumex drip and Diuril as above -Follow I's and O's, daily weights -Appreciate cardiology consultation and critical care management (4) Hyponatremia: Sodium has been in the mid 120s throughout her entire stay and is likely due to volume overload and CHF-is now improved to 131 -Continue diuresis as above -Nephrology following -Follow BMP (5) ZAC (acute kidney injury): Baseline Cr is 0.8. - On 05/28, Cr bumped to 1.2 with Lasix diuresis. On 05/29, creatinine increased again to 2.19 and BUN up to 44, did receive IV diuretics but fractional excretion of sodium calculated to be prerenal, no granular casts on UA Because of her severe respiratory distress and worsening pulmonary edema, she was given total of 60 mg of IV Lasix on the morning of 05/29 with not a brisk response of urine output Creatinine continues to trend downward today to 1.2 and is now making excellent urine as above Other electrolytes are improving as well, hyponatremia improving, with hypokalemia secondary to loop diuretic -Received 2 doses of IV albumin as above and continues on Bumex drip as above -Appreciate nephrology consultation -Follow BMP in the morning (6) Esophageal candidiasis: As above -Treating with Diflucan x21-day course with last day being approximately 06/14/2019 (7) MARTINEZ (dyspnea on exertion): Progressively worsening over the last 2 months, most likely secondary to acute on chronic diastolic CHF, symptomatic anemia, and pleural effusions CT chest on 05/24 showed mild emphysematous changes. Repeat CTA on 05/27 showed volume overload. - Got 2 units of PRBCs on 05/24 - Elevated troponin on 05/27 in the setting of worsening shortness of breath and tachypnea & tachycardia. Stable; non-ischemic pattern. -Canceled nuclear stress as originally planned. -DC nitroglycerin patch per cardiology rec. (8) Essential hypertension: BP is controlled -Continue to hold valsartan due to ZAC and hold verapamil due to possibility of causing worsening renal function as per discussion with pharmacy -Continue to hold hydrochlorothiazide (9) GI bleed: Presented with anemia with hemoglobin of 8, now improved to 11.5 after PRBC transfusion on 05/24 EGD on 05/23 showed esophagitis consistent with candidiasis along with gastritis. No overt melena or hematochezia. CT a/p on 05/24 did not show any mass or concerning findings related to bleeding. - GI consulted - Appreciate recs -Currently, her PPI PO BID is on hold-receiving IV Pepcid -Continue fluconazole for esophageal candidiasis x21-day course -Follow CBC-hemoglobin remained stable (10) Carotid artery stenosis: Known to have bilateral SHITAL 50-69%, followed as an outpatient -Holding home aspirin due to recent GI bleed -Continue atorvastatin 40 mg p.o. nightly (11) Elevated troponin: Mildly elevated at 0.5 and stable x3 in the setting of acute CHF as above and respiratory distress No ischemic pattern Echocardiogram on 05/22 without wall motion abnormalities Nuclear stress test canceled due to severe respiratory distress and would not likely supervisor policy change clerks at this time even if abnormal -Appreciate cardiology consultation (12) Aortic stenosis: Moderate, noted on echocardiogram -Should be followed routinely as an outpatient (13) DVT prophylaxis: SQ heparin -SCDs Disposition-continued stay in the ICU Discussed her care with son and daughter at the bedside extensively Has now been changed to a DNR/DNI as per family discussion with fleet maintenance foreman Subjective Patient remains mechanically ventilated. I had a lengthy discussion with the family at the bedside about her condition and prognosis. Plan is for likely extubation tomorrow. Discussed case with the fleet maintenance foreman and palliative care nurse practitioner. Continues to make plenty of urine and remains on Bumex drip. Review of Systems Review of Systems: All systems reviewed & are unremarkable except as noted in HPI & below Physical Exam Constitutional: average body habitus, + frail appearing and + mechanically ventilated; no acute distress Eyes: + anicteric sclerae ENMT: ET tube in place Neck: trachea midline, no thyromegaly Respiratory: no labored breathing Auscultation: no crackles, no rhonchi and no wheezes Cardiovascular: RRR, no murmur, no edema Gastrointestinal (Abdomen): normal bowel sounds, soft, nontender, no hepatosplenomegaly Musculoskeletal: Extremities: extremities normal to inspection; no cyanosis and no clubbing Skin: no rashes, warm and dry Neurologic: + not awake Genitourinary: Benitez catheter with copious clear yellow urine Results & Data Vital Signs (Past 12 Hours) Vital Signs Temp Pulse Pulse Resp BP Pulse Ox 06/01/19 18:57 88 88 16 97 06/01/19 18:00 85 127/48 L 97 06/01/19 17:30 85 97 06/01/19 17:00 86 106/40 L 97 06/01/19 16:00 37.5 C 91 H 141/87 H 98 06/01/19 15:52 91 H 16 98 06/01/19 15:00 98 H 148/53 H 98 06/01/19 14:13 84 22 100 06/01/19 14:02 112 H 183/121 H 96 06/01/19 13:30 80 122/39 L 97 06/01/19 13:00 80 145/42 H 98 06/01/19 12:30 82 116/41 L 98 06/01/19 12:00 85 153/49 H 98 06/01/19 11:30 86 147/46 H 97 06/01/19 11:00 83 147/52 H 98 06/01/19 10:38 82 16 97 06/01/19 10:30 82 124/44 L 97 06/01/19 10:09 16 06/01/19 10:00 82 158/53 H 98 06/01/19 09:30 82 154/78 H 98 06/01/19 09:00 84 136/47 L 98 06/01/19 08:30 87 151/61 H 98 06/01/19 08:01 36.8 C 94 H 160/51 H 97 Laboratory Results 06/01/19 06/01/19 06/01/19 Range/Units 11:51 06:24 04:34 WBC (4.8-10.8) K/uL RBC (4.2-5.4) M/uL Hgb (12.0-16.0) g/dL Hct (37-47) % MCV (80-100) fL MCH (25-34) pg MCHC (32-36) g/dL RDW Std Deviation (36.4-46.3) fL RDW Coeff of Sean (11.5-14.5) % Plt Count (130-400) K/uL MPV (7.4-10.4) fL Immature Gran % (Auto) % Neut % (Auto) % Lymph % (Auto) % Chester % (Auto) % Eos % (Auto) % Baso % (Auto) % Immature Gran # (Auto) (0.00-0.02) K/uL Neut # (Auto) (1.4-6.5) K/uL Lymph # (Auto) (1.2-3.4) K/uL Chester # (Auto) (0.11-0.59) K/uL Eos # (Auto) (0-0.5) K/uL Baso # (Auto) (0-0.2) K/uL Sodium 131 L (136-145) mmol/L Potassium 3.0 L (3.5-5.1) mmol/L Chloride 93 L (98-107) mmol/L Carbon Dioxide 29 (21-32) mmol/L Anion Gap 9.0 (3-11) BUN 59 H (7-18) mg/dl Creatinine 1.27 H (0.6-1.2) mg/dl Est Cr Clr Drug Dosing 22.7 ml/min Est GFR ( Amer) 43.3 Est GFR (Non-Af Amer) 37.4 BUN/Creatinine Ratio 46.7 H (10-20) Glucose 159 H (70-99) mg/dl POC Glucose 144 H 149 H (70-99) Calcium 8.0 L (8.5-10.1) mg/dl Phosphorus 2.9 (2.5-4.9) mg/dl Magnesium 1.6 L (1.8-2.4) mg/dl Lactate Dehydrogenase (84-246) U/L Total Protein (6.4-8.2) gm/dl Albumin (3.4-5.0) gm/dl Pleural Fluid Source Pleural Color Pleural Appearance Pleural WBC /uL Pleural RBC /uL Pleural Polynuclear % % Pleural Mononuclear % % Pleural Total Protein g/dl Pleural LDH U/L Pleural Glucose mg/dl 06/01/19 05/31/19 05/31/19 Range/Units 04:34 21:48 21:48 WBC 14.93 H (4.8-10.8) K/uL RBC 3.85 L (4.2-5.4) M/uL Hgb 11.5 L (12.0-16.0) g/dL Hct 33.8 L (37-47) % MCV 87.8 (80-100) fL MCH 29.9 (25-34) pg MCHC 34.0 (32-36) g/dL RDW Std Deviation 46.2 (36.4-46.3) fL RDW Coeff of Sean 14.3 (11.5-14.5) % Plt Count 291 (130-400) K/uL MPV 10.0 (7.4-10.4) fL Immature Gran % (Auto) 0.3 % Neut % (Auto) 88.5 % Lymph % (Auto) 3.6 % Chester % (Auto) 7.0 % Eos % (Auto) 0.5 % Baso % (Auto) 0.1 % Immature Gran # (Auto) 0.05 H (0.00-0.02) K/uL Neut # (Auto) 13.20 H (1.4-6.5) K/uL Lymph # (Auto) 0.54 L (1.2-3.4) K/uL Chester # (Auto) 1.05 H (0.11-0.59) K/uL Eos # (Auto) 0.07 (0-0.5) K/uL Baso # (Auto) 0.02 (0-0.2) K/uL Sodium (136-145) mmol/L Potassium (3.5-5.1) mmol/L Chloride (98-107) mmol/L Carbon Dioxide (21-32) mmol/L Anion Gap (3-11) BUN (7-18) mg/dl Creatinine (0.6-1.2) mg/dl Est Cr Clr Drug Dosing ml/min Est GFR ( Amer) Est GFR (Non-Af Amer) BUN/Creatinine Ratio (10-20) Glucose (70-99) mg/dl POC Glucose (70-99) Calcium (8.5-10.1) mg/dl Phosphorus (2.5-4.9) mg/dl Magnesium (1.8-2.4) mg/dl Lactate Dehydrogenase (84-246) U/L Total Protein (6.4-8.2) gm/dl Albumin (3.4-5.0) gm/dl Pleural Fluid Source RIGHT LUNG LEFT LUNG Pleural Color YELLOW YELLOW Pleural Appearance CLEAR CLEAR Pleural WBC 167 268 /uL Pleural RBC < 3000 < 3000 /uL Pleural Polynuclear % 51.9 51.7 % Pleural Mononuclear % 48.1 48.3 % Pleural Total Protein 1.8 g/dl Pleural LDH U/L Pleural Glucose 154 mg/dl 05/31/19 05/31/19 05/31/19 Range/Units 21:48 19:24 19:24 WBC (4.8-10.8) K/uL RBC (4.2-5.4) M/uL Hgb (12.0-16.0) g/dL Hct (37-47) % MCV (80-100) fL MCH (25-34) pg MCHC (32-36) g/dL RDW Std Deviation (36.4-46.3) fL RDW Coeff of Sean (11.5-14.5) % Plt Count (130-400) K/uL MPV (7.4-10.4) fL Immature Gran % (Auto) % Neut % (Auto) % Lymph % (Auto) % Chester % (Auto) % Eos % (Auto) % Baso % (Auto) % Immature Gran # (Auto) (0.00-0.02) K/uL Neut # (Auto) (1.4-6.5) K/uL Lymph # (Auto) (1.2-3.4) K/uL Chester # (Auto) (0.11-0.59) K/uL Eos # (Auto) (0-0.5) K/uL Baso # (Auto) (0-0.2) K/uL Sodium (136-145) mmol/L Potassium (3.5-5.1) mmol/L Chloride (98-107) mmol/L Carbon Dioxide (21-32) mmol/L Anion Gap (3-11) BUN (7-18) mg/dl Creatinine (0.6-1.2) mg/dl Est Cr Clr Drug Dosing ml/min Est GFR ( Amer) Est GFR (Non-Af Amer) BUN/Creatinine Ratio (10-20) Glucose (70-99) mg/dl POC Glucose (70-99) Calcium (8.5-10.1) mg/dl Phosphorus (2.5-4.9) mg/dl Magnesium (1.8-2.4) mg/dl Lactate Dehydrogenase 333 H (84-246) U/L Total Protein 6.1 L (6.4-8.2) gm/dl Albumin 2.6 L (3.4-5.0) gm/dl Pleural Fluid Source Pleural Color Pleural Appearance Pleural WBC /uL Pleural RBC /uL Pleural Polynuclear % % Pleural Mononuclear % % Pleural Total Protein g/dl Pleural LDH 103 U/L Pleural Glucose mg/dl Diagnostic Findings Chest x-ray image personally reviewed by me and agree with the following report: XR chest 1V portable HISTORY: Shortness of breath. COMPARISON: Chest 05/31/2019. FINDINGS: Nasogastric tube terminates below the diaphragm. The tip is not includ ed on this study. Endotracheal tube terminates 4 cm from the bobo. No pneumothorax. No pleural effusions. Left basilar airspace opacity has slightly improved. Mild interstitial thickening is again noted. No evidence for pulmonary edema. IMPRESSION: 1. Satisfactory support line placement. 2. Improved aeration within the left lung base. PG Care Time/CCT Total # of Minutes Spent Total Time Spent with Patient: Total time spent is greater than 50% in coordination of care (as documented) at patient's floor/unit and/or counseling patient:
[2019-06-01] MEDS: ATORVASTATIN 40 MG TAB PO SCH (20:16)
[2019-06-02] MEDS: fentaNYL citrate 100 MCG/2 ML VIAL IV PRN ×3 (01:35→08:40)
[2019-06-02] MEDS: LEVALBUTEROL HCL 0.63 MG/3 ML NEB NEB SCH ×2 (02:25→08:08)
[2019-06-02] MEDS: BUMETANIDE 10 MG in DEXTROSE 5% 10 ML IV SCH (04:15)
[2019-06-02 05:48] LABS: BUN Creatinine Ratio 41.9 (10-20); Calcium 8.6 mg/dl (8.5-10.1); Creatinine Clr Calc Pharmacy 21.3 ml/min; Est GFR (African American) 40.2; Est GFR (Non-African American) 34.7; Potassium 4.4 mmol/L (3.5-5.1)
--- NOTE | 2019-06-02 08:11 | Critical Care Progress Note ---
Date of Service June 02, 2019 Assessment & Plan (1) Admitted to intensive care unit: Mrs. Greene is a 89 y/o female who presents to ICU for worsening respiratory status from pulmonary edema in setting of ZAC and CHF, requiring intubation. Now weaning vent as tolerated. Neuro: CAM negative -Fentanyl 25 mics every hour - Lorazepam 0.5mg q4h PRN for anxiety Cardiac/Vascular: PMHx: HTN, HLD - currently stable hemodynamics without use of vasopressors - hold home anti-HTNs - Echocardiogram performed showed LV normal systolic function; no regional wall abnormalities; mild concentric LVH; EF 55-60%; moderate aortic stenosis Pulm: -Patient remains intubated, failed CPAP this a.m. -PRVC 16/400/5/30% -Goals of care revisited this a.m. and family would like to proceed with palliative extubation following discussion with Dr. Colvin. -Bilateral thoracentesis performed to drain pleural effusions yesterday, repeat chest ultrasound showed mild improvement with significant reaccumulation and greater than 5 B-lines mid axillary and posteriorly. -We will discontinue Bumex drip at this time given established goals of care. GI: PPx - Protonix 40mg BID; sucralfate 1gm qACHS Zofran for nausea continue with home multivitamin okay Renal/lytes: -Creatinine 1.35 this a.m., patient displayed adequate diuresis overnight with therapy - nephro consulted, appreciate recommendations -Bumex drip DC'd per above : underwood cath strict I/Os Endo: No hx of DM or thyroid disease Heme: -Persistent leukocytosis improved, trend -H&H remained stable, routine CBCs ID: - positive blood cultures for strep mitis, antibiotics broadened to include Rocephin for endocarditis coverage and will continue daptomycin - Esophageal candidiasis with Diflucan 100mg qAM -Urine culture grew MRSA from Underwood, suspected colonization, Underwood change DVT ppx:SCDs, heparin BID Resuscitation status: DNR/DNI We will proceed with palliative extubation following discussion between Dr. Colvin and family at bedside, as discussed in HPI. I have personally spent 40 minutes of critical care time in the direct miguel angel gement of this patient. This is a life/limb threatening event. This includes time spent evaluating patient, direct bedside care, chart review, placing orders, interpretation of diagnostic studies, discussion with consultants, patient, and family members, as well as other required patient management activities. This time is exclusive of all separately billable procedures, and teaching time and separate from and in addition to any other critical care service time. Thank you for allowing us to participate in the care of this patient. Please refer to my attending physician's documentation for any further recommendations. Supervising Physician Co-Signing Physician Notes I have personally evaluated and examined this patient. I agree with assessment and plan of Brando RAPHAEL. We have optimized the patient's diuresis to the best of our ability and there is been a mild increase in her creatinine we are holding diuretics at this point. Patient was discussed in multidisciplinary rounds and I discussed the case with Dr. Carias. Repeat lung ultrasound demonstrates mild worsening of pulmonary edema as well as mild increase in bilateral pleural effusions. 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 She was on a CPAP trial and had a elevated RSBI, I am concerned this will be a terminal event. If she shows signs of extremitas we will proceed with comfort care and terminal sedation and anxiolysis. Patient remains critically ill. I have personally spent 45 minutes of critical care time in the direct management of this patient. This is a life/limb threatening event. This includes time spent evaluating patient, direct bedside care, chart review, placing orders, interpretation of diagnostic studies, discussion with consultants, patient, and/or family members regarding treatment decisions, as well as other required patient management activities. This time is exclusive of all separately billable procedures, and teaching time and separate from and in addition to any other critical care service time. Clinical update 1600 patient is not tolerating extubation and we have transition to comfort care. Morphine infusion ordered should it be required. Proceeding with expectant management. Subjective Ms. Greene is a 89-year-old female that was transferred to the ICU for hypoxic respiratory failure requiring intubation. Patient had large bilateral pleural effusions which were drained with thoracentesis and patient has underwent aggressive diuresis. However, it was discovered during thoracic ultrasound that the patient continues to have bilateral pulmonary edema and has reaccumulated pleural effusion in the in the left hemithorax. Per discussion between Dr. Colvin and family at bedside, family would like to proceed with palliative e xtubation at this time. Review of Systems Review of Systems: Unobtainable due to endotracheal tube Physical Exam Eyes: PERRL, conjunctivae normal, anicteric sclerae ENMT: external ear and nose normal, oropharynx normal Neck: trachea midline, no thyromegaly Respiratory: Symmetrical chest wall movement, bilateral breath sounds with coarse crackles bilaterally, diminished lung sounds in bases bilaterally Cardiovascular: Rate/Rhythm: regular rate and regular rhythm Heart Sounds: normal S1 and normal S2 Vessels: no JVD Gastrointestinal (Abdomen): normal bowel sounds, soft, nontender, no hepatosplenomegaly Neurologic: PERRLA, EOMs intact, symmetrical movement bilaterally Genitourinary: Indwelling Underwood catheter present Results & Data Vital Signs (Past 12 Hours) Vital Signs Temp Pulse Resp BP Pulse Ox 06/02/19 07:46 78 06/02/19 06:30 78 99 06/02/19 06:00 77 120/39 L 100 06/02/19 05:30 79 99 06/02/19 05:00 79 109/41 L 99 06/02/19 04:30 79 99 06/02/19 04:00 36.8 C 82 148/48 H 99 06/02/19 03:30 79 100 06/02/19 03:01 88 168/57 H 99 06/02/19 03:00 80 99 06/02/19 02:30 73 99 06/02/19 02:14 77 16 98 06/02/19 02:00 79 104/36 L 99 06/02/19 01:30 81 98 06/02/19 01:01 86 147/70 H 98 06/02/19 01:00 82 98 06/02/19 00:30 82 98 06/02/19 00:00 36.7 C 84 125/48 L 97 06/01/19 23:30 91 H 98 06/01/19 23:27 84 16 97 06/01/19 23:00 87 142/58 H 97 06/01/19 22:30 92 H 94 06/01/19 22:15 87 16 94 06/01/19 22:00 91 H 152/54 H 95 06/01/19 21:30 82 96 06/01/19 21:00 88 123/43 L 96 06/01/19 20:30 80 94 Laboratory Results Laboratory Results - last 24 hr 06/01/19 06/01/19 06/01/19 01:03 05:57 11:51 Sample Site L Radial POC pH 7.46 H POC pCO2 39 POC pO2 127 H POC HCO3 27 H POC Total CO2 28 POC Base Excess 3.0 H POC ABG O2 Sat 99.0 H Dieudonne Test Pass O2 Delivery Device Ventilator POC O2 Rate 16 Minute Ventilation 5.9 Tidal Volume 400 PEEP 5 Sodium Potassium Chloride Carbon Dioxide Anion Gap BUN Creatinine Est Cr Clr Drug Dosing Est GFR ( Amer) Est GFR (Non-Af Amer) BUN/Creatinine Ratio Glucose POC Glucose 144 H POC Glucose (other) 187 H Calcium Prealbumin 06/02/19 06/02/19 04:16 04:16 Sample Site POC pH POC pCO2 POC pO2 POC HCO3 POC Total CO2 POC Base Excess POC ABG O2 Sat Dieudonne Test O2 Delivery Device POC O2 Rate Minute Ventilation Tidal Volume PEEP Sodium 135 L Potassium 4.4 D Chloride 96 L Carbon Dioxide 32 Anion Gap 7.0 BUN 57 H Creatinine 1.35 H Est Cr Clr Drug Dosing 21.3 Est GFR ( Amer) 40.2 Est GFR (Non-Af Amer) 34.7 BUN/Creatinine Ratio 41.9 H Glucose 134 H POC Glucose POC Glucose (other) Calcium 8.6 Prealbumin 14.2 L Medications Administered Home Medications acetaminophen [Tylenol] 650 mg PO BID 05/11/19 [History Confirmed 05/22/19] aspirin 325 mg PO HS 05/11/19 [History Confirmed 05/22/19] atorvastatin 40 mg PO HS 05/11/19 [History Confirmed 05/22/19] cetirizine [Zyrtec] 10 mg PO DAILY PRN 05/11/19 [History Confirmed 05/22/19] multivitamin 1 tab PO QAM 05/11/19 [History Confirmed 05/22/19] omeprazole 20 mg PO QAM 05/11/19 [History Confirmed 05/22/19] valsartan-hydrochlorothiazide 1 tab PO QAM 05/11/19 [History Confirmed 05/22/19] verapamil 120 mg PO HS 05/11/19 [History Confirmed 05/22/19] Active Medications Acetaminophen (Tylenol) 650 mg PO Q4H PRN PRN Reason: Pain or Fever Stop: 06/21/19 13:29 Al Hydrox/Mg Hydrox/Simethicone (Maalox) 15 ml PO Q4H PRN PRN Reason: Dyspepsia Stop: 06/21/19 13:29 Atorvastatin Calcium (Lipitor) 40 mg PO HS [facility] [place] Stop: 06/21/19 20:59 Last Admin: 06/01/19 20:16 Dose: 40 mg Documented by: Cetirizine HCl (Zyrtec) 10 mg PO DAILY PRN PRN Reason: Allergy Symptoms Stop: 06/21/19 13:29 Enteral Nutritional Formula (Peptamen 1.5 Rj) 1,000 ml PO UD [facility] [place]; Protocol Stop: 06/29/19 19:59 Last Admin: 06/01/19 05:10 Dose: 1,000 ml Documented by: Fentanyl Citrate (Fentanyl Citrate) 25 mcg IV Q1H PRN PRN Reason: Moderate Pain (4,5,6) Stop: 06/13/19 04:58 Last Admin: 06/02/19 04:10 Dose: 25 mcg Documented by: Fluconazole (Diflucan) 100 mg PO QAM [facility] [place]; Protocol Stop: 06/05/19 09:01 Last Admin: 06/02/19 08:40 Dose: 100 mg Documented by: Heparin Sodium (Porcine) (Heparin Sodium (Porcine)) 5,000 units SQ Q12H [facility] Stop: 07/01/19 09:59 Last Admin: 06/01/19 22:21 Dose: 5,000 units Documented by: Lorazepam (Ativan) 1 mg in 2 mls @ 2 mls/min IV Q4H PRN PRN Reason: AGITATION/SEDATION Stop: 06/29/19 12:02 Last Admin: 06/01/19 22:17 Dose: 2 mls/min Documented by: Famotidine 20 mg/ Syringe 5 mls @ 2.5 mls/min IV DAILY [facility] [place] Stop: 06/30/19 08:59 Last Admin: 06/02/19 08:48 Dose: 2.5 mls/min Documented by: Ceftriaxone Sodium 2,000 mg/ (Dextrose) 70 mls @ 140 mls/hr IV Q24H [facility] [place] Stop: 07/13/19 09:59 Last Infusion: 06/01/19 12:25 Dose: Infused Documented by: Levalbuterol HCl (Xopenex 0.63 Mg/3 Ml Neb) 0.63 mg NEB Q6R [facility] Stop: 06/22/19 19:59 Last Admin: 06/02/19 08:08 Dose: 0.63 mg Documented by: Morphine Sulfate (Morphine Sulfate) 1 mg IV Q15M PRN PRN Reason: Pain Stop: 06/16/19 08:53 Multivitamins/Minerals (Cerovite Liquid) 15 ml PO QAM [facility] Stop: 06/30/19 08:59 Last Admin: 06/02/19 08:48 Dose: 15 ml Documented by: Ondansetron HCl (Zofran) 4 mg IV Q6H PRN PRN Reason: Nausea Stop: 06/21/19 13:29 Last Admin: 05/28/19 19:49 Dose: 4 mg Documented by: Sucralfate (Carafate) 1 gm PO ACHS [facility] [place] Stop: 06/21/19 20:59 Last Admin: 06/02/19 08:39 Dose: 1 gm Documented by: Valsartan (Diovan) 320 mg PO QAM [facility] Stop: 06/22/19 08:59 Last Admin: 05/29/19 07:40 Dose: 320 mg Documented by: Verapamil HCl (Calan Sr) 120 mg PO HS [facility] Stop: 06/21/19 20:59 Last Admin: 05/28/19 20:22 Dose: 120 mg Documented by:
--- NOTE | 2019-06-02 08:38 | XRay Report ---
XR chest 1V portable CLINICAL HISTORY: re-eval of pulmonary disease COMPARISON STUDY: 06/01/2019 FINDINGS: Endotracheal tube remains 4 cm above the bobo. Continued improvement of aeration left lung base. Improved visibility left hemidiaphragm. Nasogastric tube within the mid stomach. IMPRESSION: Improving aeration left lung base. Satisfactory endotracheal tube position 4 cm above th e bobo. The above report was generated using voice recognition software. It may contain grammatical, syntax or spelling errors. Electronically signed by: Akhil Tran M.D. 06/02/2019 8:37 AM
[2019-06-02] MEDS: SUCRALFATE 1 GM/10 ML UDC PO SCH ×3 (08:39→17:38)
[2019-06-02] MEDS: FLUCONAZOLE 100 MG TAB PO SCH (08:40)
[2019-06-02] MEDS: MULTI VIT W/MINERALS LIQUID 15 ML UDP PO SCH (08:48)
[2019-06-02] MEDS: FAMOTIDINE 20 MG in SYRINGE 3 ML IV SCH (08:48)
--- NOTE | 2019-06-02 08:57 | Procedure Note ---
Procedure Note Date of Service June 02, 2019 Note Critical Care Medicine Point of Care Bedside Ultrasound Procedure: Limited Bedside Lung Ultrasound Indication: Hypoxic respiratory failure, bilateral pleural effusions Attending: Anahi Colvin DO Provider: DONAVON Cortez Organs Examined: Lung BLUE point (upper), BLUE point (lower), Phrenic Point (axillary), PLAPS point (posterior) A lines visualized: Absent, Hemithorax: Bilateral B lines visualized: Present in lower anterior bilaterally, axillary bilaterally, posterior bilaterally Lung Sliding: Present, Hemithorax: Left lung Tissue-like Sign: Present, Hemithorax: Posterior right lung field Shred Sign: Absent, Hemithorax: Bilateral Quad Sign: Present, Hemithorax: Left lung posterior field Sinusoid Sign: Absent, Hemithorax: Bilateral posterior lung whittaker Type of effusions: Simple, Hemithorax: Left lung Impression: Global type B lung ultrasound with small left pleural effusions and bilateral pulmonary edema Images obtained are saved for permanent record Supervising Physician Co-Signing Physician Notes I was present during the entire procedure and independently reviewed the images. Coding CPT Codes Pulmonary/Thoracic - Pulmonary and Thoracic: US, Chest, real time with imaging documentation ([id number])
[2019-06-02] MEDS ORDERED: SOD PHOSPHATE/SOD BIPHOSPHATE ENEMA 132 ML BTL PR ONE (09:00)
[2019-06-02 09:20] LABS: iSTAT Allen Test Pass; iSTAT Arterial Blood Gas HCO3 27 meg/L (19-24); iSTAT Arterial Blood Gas pCO2 39 mmHg (35-46); iSTAT Arterial Blood Gas pH 7.46 (7.35-7.45); iSTAT Carbon Dioxide 28 mEq/l (24-31); iSTAT Site L Radial
--- NOTE | 2019-06-02 09:33 | Palliative Care Progress Note ---
Date of Service June 02, 2019 Assessment & Plan (1) Goals of care, counseling/discussion: -Patient discussed at ICU rounds this morning. Met with patient's son Akhil and daughter. Patient is still on mechanical ventilator, but plan is for extubation today. CXR showed improved left lung base aeration, but creatinine is slightly worse today at 1.35. -Patient's children both are in agreement that if patient declines after extubation, they do NOT want the ETT put back in. They are cautiously optimistic that patient will be able to maintain, but again if patient declines or deteriorates, low threshold to transition to comfort measures. -Uncertain of long-term goals-- will depend on clinical course. If patient becomes well enough to leave the hospital, she could go back to [facility], whether or not it will be with hospice is yet to be determined. -Palliative care will continue to follow. Update 1415: Patient tolerated extubation okay. Has received a couple doses of morphine. Dr. Colvin has ordered comfort measures only, but continuing to treat with abx and regular medications. Being transferred out of ICU. Continue conservative treatment for now. Will see how patient does over next few days. (2) Septicemia: (3) Acute respiratory failure with hypoxia: (4) Acute on chronic diastolic CHF (congestive heart failure): (5) Esophageal candidiasis: Subjective Patient is still on ventilator. Plan is for extubation today. Review of Systems Review of Systems: Unobtainable due to endotracheal tube Physical Exam Constitutional: + ill appearing and + frail appearing Neck: normal visual inspection Respiratory: no respiratory distress Cardiovascular: Rate/Rhythm: regular rate and regular rhythm Gastrointestinal (Abdomen): Inspection/Auscultation: abdomen normal to inspection and normal bowel sounds Neurologic: moves all extremities (following commands on ventilator) and awake Results & Data Vital Signs (Past 12 Hours) Vital Signs Temp Pulse Resp BP Pulse Ox 06/02/19 09:00 80 133/65 100 06/02/19 08:05 78 16 97 06/02/19 08:00 36.5 C 74 115/39 L 100 06/02/19 07:46 78 06/02/19 07:00 80 120/38 L 99 06/02/19 06:30 78 99 06/02/19 06:00 77 120/39 L 100 06/02/19 05:30 79 99 06/02/19 05:00 79 109/41 L 99 06/02/19 04:30 79 99 06/02/19 04:00 36.8 C 82 148/48 H 99 06/02/19 03:30 79 100 06/02/19 03:01 88 168/57 H 99 06/02/19 03:00 80 99 06/02/19 02:30 73 99 06/02/19 02:14 77 16 98 06/02/19 02:00 79 104/36 L 99 06/02/19 01:30 81 98 06/02/19 01:01 86 147/70 H 98 06/02/19 01:00 82 98 06/02/19 00:30 82 98 06/02/19 00:00 36.7 C 84 125/48 L 97 06/01/19 23:30 91 H 98 06/01/19 23:27 84 16 97 06/01/19 23:00 87 142/58 H 97 06/01/19 22:30 92 H 94 06/01/19 22:15 87 16 94 06/01/19 22:00 91 H 152/54 H 95 Supervising Physician Co-Signing Physician Notes Patient seen and examined-patient's daughter, son and grandson at bedside. Collaborated with DONAVON Rodrigez PE: Patient extubated, on O2 via oxygen mask HEENT: Opens eyes briefly, appears to hear Respiratory: Increased respiratory rate and work of breathing, O2 sats adequate CV: Regular rate Abdomen: Not distended Extremities: No edema, warm to touch Neuro: Arouses occasionally, aware of family at bedside. Patient unable to respond verbally Agree with above note, assessment and plan as per DONAVON Rodrigez-will continue to follow and assist family with medical decision making. PG Care Time/CCT Total # of Minutes Spent Total Time Spent with Patient: Total time spent is greater than 50% in coordination of care (as documented) at patient's floor/unit and/or counseling patient: Prolonged Care Time Prolonged Care Time: Yes Total Prolonged Care Time: 30 Time Spent Midlevel 35 minutes with >50% of the time spent at bedside with patient and family, as well as IDT discussing condition and GOC. Attending Spent 30 minutes in addition to the 35 minutes spent by DONAVON Rodrigez for a total of 65 minutes with greater than 50% of the time at bedside counseling family regarding end-of-life issues Critical Care Time Prolonged Care Time Prolonged Care Time: Yes Total Prolonged Care Time: 30 65
[2019-06-02] MEDS: HEPARIN SOD 5,000 UNIT/0.5 ML VIAL SQ SCH (10:25)
[2019-06-02] MEDS: cefTRIAXone SODIUM 2,000 MG in DEXTROSE 5% 50 ML IV SCH (10:31)
[2019-06-02] MEDS: MoRPHine SULFATE 2 MG/ML CARP IV PRN ×6 (10:32→15:20)
--- NOTE | 2019-06-02 10:39 | Nephrology Progress Note ---
Date of Service June 02, 2019 Assessment & Plan (1) ZAC (acute kidney injury): -- Consistent with ATN and acute cardiorenal syndrome -- Kidney function improved and stable -- Adequate urine output -- Patient's family does not desire to escalate care -- Palliative care following -- Bumex gtt DC'd -- Intermittent diuretics may be used as needed to encourage urine output -- Nephrology will sign off -- Please call with questions or concerns (2) MARTINEZ (dyspnea on exertion): -- Strep bacteremia being treated with rocephin -- Suspected IE -- Cardiology following -- ID following -- Extubated -- Family does not wish to escalate care, goals of care are palliative at this time (3) GI bleed: -- EGD on 05/23 showed esophagitis consistent with candidiasis along with gastritis -- PPI PO BID -- Fluconazole for esophageal candidiasis (4) Essential hypertension: Subjective Ms. Greene was extubated this AM. Mental status remains notably altered. She is not answering questions. The patient's children are at the bedside. They have expressed interest palliative care. Bumex gtt was discontinued and urine output remains appropriate. Kidney function has been stable. The patient has been afebrile. Review of Systems Review of Systems: Unobtainable due to cognitive status Physical Exam Constitutional: + ill appearing and + frail appearing Eyes: no scleral abnormality and no corneal abnormality ENMT: Mouth: + dry oral mucous membranes; no oral mucosal abnormality Neck: trachea midline Respiratory: + labored breathing Cardiovascular: Rate/Rhythm: regular rate and regular rhythm Heart Sounds: normal S1 and normal S2 Vessels: + JVD Extremities: no edema Gastrointestinal (Abdomen): Percussion/Palpation: abdomen soft Musculoskeletal: Extremities: + cyanosis; no clubbing Skin: + turgor decreased; no rashes Neurologic: Motor/Sensory: no tremor and no asterixis Psychiatric: Orientation: + not alert and + not oriented x 3 Results & Data Vital Signs (Past 12 Hours) Vital Signs Temp Pulse Resp BP Pulse Ox 06/02/19 09:00 80 133/65 100 06/02/19 08:05 78 16 97 06/02/19 08:00 36.5 C 74 115/39 L 100 06/02/19 07:46 78 06/02/19 07:00 80 120/38 L 99 06/02/19 06:30 78 99 06/02/19 06:00 77 120/39 L 100 06/02/19 05:30 79 99 06/02/19 05:00 79 109/41 L 99 06/02/19 04:30 79 99 06/02/19 04:00 36.8 C 82 148/48 H 99 06/02/19 03:30 79 100 06/02/19 03:01 88 168/57 H 99 06/02/19 03:00 80 99 06/02/19 02:30 73 99 06/02/19 02:14 77 16 98 06/02/19 02:00 79 104/36 L 99 06/02/19 01:30 81 98 06/02/19 01:01 86 147/70 H 98 06/02/19 01:00 82 98 06/02/19 00:30 82 98 06/02/19 00:00 36.7 C 84 125/48 L 97 06/01/19 23:30 91 H 98 06/01/19 23:27 84 16 97 06/01/19 23:00 87 142/58 H 97 Laboratory Results Laboratory Results - last 24 hr 06/01/19 06/01/19 06/01/19 01:03 05:57 11:51 Sample Site L Radial POC pH 7.46 H POC pCO2 39 POC pO2 127 H POC HCO3 27 H POC Total CO2 28 POC Base Excess 3.0 H POC ABG O2 Sat 99.0 H Dieudonne Test Pass O2 Delivery Device Ventilator POC O2 Rate 16 Minute Ventilation 5.9 Tidal Volume 400 PEEP 5 Sodium Potassium Chloride Carbon Dioxide Anion Gap BUN Creatinine Est Cr Clr Drug Dosing Est GFR ( Amer) Est GFR (Non-Af Amer) BUN/Creatinine Ratio Glucose POC Glucose 144 H POC Glucose (other) 187 H Calcium Prealbumin 06/02/19 06/02/19 04:16 04:16 Sample Site POC pH POC pCO2 POC pO2 POC HCO3 POC Total CO2 POC Base Excess POC ABG O2 Sat Dieudonne Test O2 Delivery Device POC O2 Rate Minute Ventilation Tidal Volume PEEP Sodium 135 L Potassium 4.4 D Chloride 96 L Carbon Dioxide 32 Anion Gap 7.0 BUN 57 H Creatinine 1.35 H Est Cr Clr Drug Dosing 21.3 Est GFR ( Amer) 40.2 Est GFR (Non-Af Amer) 34.7 BUN/Creatinine Ratio 41.9 H Glucose 134 H POC Glucose POC Glucose (other) Calcium 8.6 Prealbumin 14.2 L PG Care Time/CCT Total # of Minutes Spent Total Time Spent with Patient: Total time spent is greater than 50% in coordination of care (as documented) at patient's floor/unit and/or counseling patient: 25
[2019-06-02] MEDS ORDERED: LEVALBUTEROL HCL 0.63 MG/3 ML NEB NEB PRN (10:40)
--- NOTE | 2019-06-02 12:29 | Infectious Disease Progress Nt ---
Date of Service June 02, 2019 Assessment & Plan (1) Gram positive sepsis: repeat cutlures negative to date, continue to follow. agree with Rocephin. follow culture results. Agree she will need prolonged course of IV abx for suspected IE and . Unclear source, GI, oral, no signs of skin/soft tissue infection but with cultures growing S. mitis, suspect oral source. .follow culture results. would suggest 6 weeks IV Rocephin with weekly cbc, cmp, esr. Subjective 05/30 blood cultures negative to date, previous S. mitis, remains on ctx. extubated today, wbc slightly increased to 14. family met with palliative care, no additional intubation planned, ? hospice in future. she is tolerating abx. afebrile, creat slightly worse today, 1.3 Results & Data Vital Signs (Past 12 Hours) Vital Signs Temp Pulse Resp BP Pulse Ox 06/02/19 09:00 80 133/65 100 06/02/19 08:05 78 16 97 06/02/19 08:00 36.5 C 74 115/39 L 100 06/02/19 07:46 78 06/02/19 07:00 80 120/38 L 99 06/02/19 06:30 78 99 06/02/19 06:00 77 120/39 L 100 06/02/19 05:30 79 99 06/02/19 05:00 79 109/41 L 99 06/02/19 04:30 79 99 06/02/19 04:00 36.8 C 82 148/48 H 99 06/02/19 03:30 79 100 06/02/19 03:01 88 168/57 H 99 06/02/19 03:00 80 99 06/02/19 02:30 73 99 06/02/19 02:14 77 16 98 06/02/19 02:00 79 104/36 L 99 06/02/19 01:30 81 98 06/02/19 01:01 86 147/70 H 98 06/02/19 01:00 82 98 06/02/19 00:30 82 98 Laboratory Results Microbiology 05/31/19 21:48 Pleural Fluid Acid Fast Bacilli Smear - Final 05/30/19 16:10 Blood Aerobic Blood Culture - Preliminary No growth in Aerobic bottle after 48 hours. 05/30/19 16:10 Blood Anaerobic Blood Culture - Preliminary No growth in Anaerobic bottle after 48 hours. 05/30/19 16:12 Blood Aerobic Blood Culture - Preliminary No growth in Aerobic bottle after 48 hours. 05/30/19 16:12 Blood Anaerobic Blood Culture - Preliminary No growth in Anaerobic bottle after 48 hours. 05/31/19 21:48 Pleural Fluid Gram Stain - Final 05/31/19 21:48 Pleural Fluid Aerobic and Anaerobic Culture - Preliminary No growth to date. 05/31/19 21:48 Pleural Fluid Gram Stain - Final 05/31/19 21:48 Pleural Fluid Aerobic and Anaerobic Culture - Preliminary No growth to date. 05/29/19 11:00 Blood Aerobic Blood Culture - Preliminary Streptococcus mitis/oralis 05/29/19 11:00 Blood Anaerobic Blood Culture - Preliminary No growth in Anaerobic bottle after 48 hours. 05/29/19 10:53 Blood Aerobic Blood Culture - Preliminary Streptococcus mitis/oralis 05/29/19 10:53 Blood Anaerobic Blood Culture - Preliminary No growth in Anaerobic bottle after 48 hours. 05/29/19 11:07 Urine,Indwelling Cath Urine Culture - Final Staph aureus MRSA 05/28/19 14:05 Blood Aerobic Blood Culture - Final Streptococcus mitis/oralis 05/28/19 14:05 Blood Anaerobic Blood Culture - Final Streptococcus mitis/oralis 05/28/19 13:57 Blood Aerobic Blood Culture - Final Streptococcus mitis/oralis#2 05/28/19 13:57 Blood Anaerobic Blood Culture - Final Streptococcus mitis/oralis 05/23/19 10:15 Throat Fungal Smear - Final 05/23/19 10:15 Throat Fungal Culture - Final Cate albicans 05/22/19 11:17 Urine,Clean Catch Urine Culture - Final More than three types of organisms present, all high counts mixed probable skin natalie - No further identifications or sensitivities to follow. PG Care Time/CCT Total # of Minutes Spent Total Time Spent with Patient: Total time spent is greater than 50% in coordination of care (as documented) at patient's floor/unit and/or counseling patient:
[2019-06-02] MEDS ORDERED: MoRPHine SULF/NSS 250 MG/250 ML BTL IV SCH (15:30)
[2019-06-02] MEDS: MoRPHine SULF/NSS 100 MG/100 ML BAG IV SCH (15:53)
[2019-06-02] MEDS ORDERED: ATROPINE SULFATE 1% OP SOLN 2 ML BTL OP PRN (19:34)
--- NOTE | 2019-06-02 22:35 | Hospitalist Progress Note ---
Date of Service June 02, 2019 Assessment & Plan (1) Septicemia: Presented with progressive fatigue and dyspnea since the end of March, but no reports of fevers. 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, no LILIAN performed due to decompensated condition as below -Started IV vancomycin but then infectious disease switched her to IV daptomycin given renal failure -Rocephin added on 05/31 as Streptococcus mitis can develop resistance to daptomycin -Consult infectious disease-appreciate recommendations -Benitez catheter exchanged on 05/31 -Plan was to treat empirically with 6 weeks of IV Rocephin, however now transitioning to comfort measures only due to end-stage CHF and respiratory failure (2) Acute respiratory failure with hypoxia: Secondary to acute on chronic diastolic CHF, with bilateral pleural effusions and pulmonary edema worsening on chest x-ray on 05/29 On the morning of 05/30, she continued to be in significant respiratory distress and developed worsening acute hypercapnic and hypoxic respiratory failure despite being on BiPAP-was intubated and mechanically ventilated With bilateral pleural effusions that were large now status post thoracenteses on 05/31 with 1 L removed from the left and 600 mL's from the right-transudate of Chest x-ray appears improved, however materials handler reports thoracic ultrasound at the bedside is worse today with pulmonary edema She did put out quite a bit of urine on a Bumex drip and is likely having a post ATN diuresis, but but now will discontinue diuretics Extubated today and having respiratory distress and failure, requiring morphine for comfort -Transitioning to comfort measures only as patient does not want to be on long- term ventilation as per her advanced directive (3) Acute on chronic diastolic CHF (congestive heart failure): Has had progressive dyspnea on exertion over the last 2 months, much worse in the last week prior to admission, and then significantly worse since receiving PRBC transfusion for anemia Echocardiogram with moderate aortic stenosis with preserved EF Question if this is been exacerbated by her septicemia and perhaps by suspected infective endocarditis She had multiple doses of IV Lasix and was still requiring BiPAP and eventually mechanical ventilation as above Her acute kidney injury is now significantly improved and she began having good urine output as above Chest x-ray improved with less pulmonary edema, however respiratory failure did not improve as above Now discontinuing all diuretics Transitioning to comfort measures only (4) Hyponatremia: Sodium had been in the mid 120s throughout her entire stay and was likely due to volume overload and CHF-is now improved to 135 No further labs to be done (5) ZAC (acute kidney injury): Baseline Cr is 0.8. - On 05/28, Cr bumped to 1.2 with Lasix diuresis. On 05/29, creatinine increased again to 2.19 and BUN up to 44, did receive IV diuretics but fractional excretion of sodium calculated to be prerenal, no granular casts on UA Because of her severe respiratory distress and worsening pulmonary edema, she was given total of 60 mg of IV Lasix on the morning of 05/29 with not a brisk response of urine output Creatinine was trending downward to 1.2 and now increased again to 1.3 Other electrolytes are improving as well, hyponatremia improving, with hypokalemia secondary to loop diuretic Now transitioning to BITUMINOUS PAVING MACHINE OPERATOR (6) Esophageal candidiasis: Seen on EGD -Previously treating with Diflucan x21-day course, now will transition to BITUMINOUS PAVING MACHINE OPERATOR and discontinue all antibiotics (7) MARTINEZ (dyspnea on exertion): Progressively worsening over the last 2 months, most likely secondary to acute on chronic diastolic CHF, symptomatic anemia, and pleural effusions CT chest on 05/24 showed mild emphysematous changes. Repeat CTA on 05/27 showed volume overload. - Got 2 units of PRBCs on 05/24 - Elevated troponin on 05/27 in the setting of worsening shortness of breath and tachypnea & tachycardia. Stable; non-ischemic pattern. -Canceled nuclear stress as originally planned. -DC nitroglycerin patch per cardiology rec. (8) Essential hypertension: No further antihypertensives to be given (9) GI bleed: Presented with anemia with hemoglobin of 8, now improved to 11.5 after PRBC transfusion on 05/24 EGD on 05/23 showed esophagitis consistent with candidiasis along with gastritis. No overt melena or hematochezia. CT a/p on 05/24 did not show any mass or concerning findings related to bleeding. - GI consulted - Appreciate recs We will now discontinue all antacids and antifungals (10) Carotid artery stenosis: Known to have bilateral SHITAL 50-69%, followed as an outpatient Discontinuing aspirin and statin (11) Elevated troponin: Mildly elevated at 0.5 and stable x3 in the setting of acute CHF as above and respiratory distress No ischemic pattern Echocardiogram on 05/22 without wall motion abnormalities Nuclear stress test canceled due to severe respiratory distress and would not likely change consultant at this time even if abnormal -Appreciate cardiology consultation (12) Aortic stenosis: Moderate, noted on echocardiogram Likely contributed to her getting presumed endocarditis (13) DVT prophylaxis: Discontinue all DVT prophylaxis Disposition-transition to medical floor for comfort measures only, remain on morphine drip, add Ativan as needed for agitation, atropine as needed for secretions Discussed her care with son and daughter at the bedside extensively DNR/DNI Prognosis is very guarded and she will likely pass away within the next few days Subjective Patient was seen early this morning she was still mechanically ventilated. Decision was made by family to extubate her and would likely be a terminal extubation. When I saw her, she had been off all sedation for almost 5 hours and was not responding. Family understands that they are moving towards comfort measures most likely at this point. After she was extubated, she had to be given several doses of morphine for respiratory distress and was eventually placed on a morphine drip for comfort. Review of Systems Review of Systems: Unobtainable due to reduced consciousness Physical Exam Constitutional: average body habitus, + frail appearing and + mechanically ventilated; no acute distress Neck: trachea midline, no thyromegaly Respiratory: no labored breathing Auscultation: no crackles, no rhonchi and no wheezes Cardiovascular: RRR, no murmur, no edema Gastrointestinal (Abdomen): normal bowel sounds, soft, nontender, no hepatosplenomegaly Musculoskeletal: Extremities: extremities normal to inspection; no cyanosis and no clubbing Skin: no rashes, warm and dry Neurologic: + not awake Results & Data Vital Signs (Past 12 Hours) Vital Signs Pulse Resp BP Pulse Ox 06/02/19 17:00 92 H 20 137/52 L 96 06/02/19 16:00 88 21 119/44 L 93 06/02/19 15:00 95 H 30 H 158/59 H 97 06/02/19 14:00 91 H 27 H 144/70 H 97 06/02/19 13:00 84 32 H 148/65 H 97 06/02/19 12:00 91 H 30 H 159/57 H 91 06/02/19 11:00 87 139/52 L 98 Laboratory Results 06/02/19 06/02/19 06/01/19 Range/Units 04:16 04:16 05:57 Sample Site L Radial POC pH 7.46 H (7.35-7.45) POC pCO2 39 (35-46) mmHg POC pO2 127 H (80-95) mmHg POC HCO3 27 H (19-24) jeanie/L POC Total CO2 28 (24-31) mEq/l POC Base Excess 3.0 H (-9-1.8) jeanie/L POC ABG O2 Sat 99.0 H (90-95) % Dieudonne Test Pass O2 Delivery Device Ventilator POC O2 Rate 16 Minute Ventilation 5.9 Tidal Volume 400 PEEP 5 Sodium 135 L (136-145) mmol/L Potassium 4.4 D (3.5-5.1) mmol/L Chloride 96 L (98-107) mmol/L Carbon Dioxide 32 (21-32) mmol/L Anion Gap 7.0 (3-11) BUN 57 H (7-18) mg/dl Creatinine 1.35 H (0.6-1.2) mg/dl Est Cr Clr Drug Dosing 21.3 ml/min Est GFR ( Amer) 40.2 Est GFR (Non-Af Amer) 34.7 BUN/Creatinine Ratio 41.9 H (10-20) Glucose 134 H (70-99) mg/dl POC Glucose (other) (70-99) mg/dl Calcium 8.6 (8.5-10.1) mg/dl Prealbumin 14.2 L (20-40) mg/dl 06/01/19 Range/Units 01:03 Sample Site POC pH (7.35-7.45) POC pCO2 (35-46) mmHg POC pO2 (80-95) mmHg POC HCO3 (19-24) jeanie/L POC Total CO2 (24-31) mEq/l POC Base Excess (-9-1.8) jeanie/L POC ABG O2 Sat (90-95) % Dieudonne Test O2 Delivery Device POC O2 Rate Minute Ventilation Tidal Volume PEEP Sodium (136-145) mmol/L Potassium (3.5-5.1) mmol/L Chloride (98-107) mmol/L Carbon Dioxide (21-32) mmol/L Anion Gap (3-11) BUN (7-18) mg/dl Creatinine (0.6-1.2) mg/dl Est Cr Clr Drug Dosing ml/min Est GFR ( Amer) Est GFR (Non-Af Amer) BUN/Creatinine Ratio (10-20) Glucose (70-99) mg/dl POC Glucose (other) 187 H (70-99) mg/dl Calcium (8.5-10.1) mg/dl Prealbumin (20-40) mg/dl PG Care Time/CCT Total # of Minutes Spent Total Time Spent with Patient: Total time spent is greater than 50% in coordination of care (as documented) at patient's floor/unit and/or counseling patient:
[2019-06-03] MEDS: MoRPHine SULFATE 2 MG/ML CARP IV PRN (14:28)
[2019-06-03] MEDS: LORazepam 1 MG/2 ML VIAL IV PRN (14:57)
[2019-06-03] MEDS ORDERED: SCOPOLAMINE 1.5 MG TDSY TD SCH (15:00)
[2019-06-03] MEDS: CHECK SCOPOLAMINE PATCH PLACEMENT SCH (15:38)
[2019-06-03] MEDS: MoRPHine SULF/NSS 100 MG/100 ML BAG IV SCH (16:14)
--- NOTE | 2019-06-03 20:53 | Hospitalist Progress Note ---
Date of Service June 03, 2019 Assessment & Plan (1) Septicemia: Presented with progressive fatigue and dyspnea since the end of March, but no reports of fevers. 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, no LILIAN performed due to decompensated condition as below -Started IV vancomycin but then infectious disease switched her to IV daptomycin given renal failure -Rocephin added on 05/31 as Streptococcus mitis can develop resistance to daptomycin -Consult infectious disease-appreciate recommendations -Benitez catheter exchanged on 05/31 -Plan was to treat empirically with 6 weeks of IV Rocephin, however then was transitioned to comfort measures only due to end-stage CHF and respiratory failure Is now obtunded and on IV morphine drip-continue comfort care plan (2) Acute respiratory failure with hypoxia: Secondary to acute on chronic diastolic CHF, with bilateral pleural effusions and pulmonary edema worsening on chest x-ray on 05/29 On the morning of 05/30, she continued to be in significant respiratory distress and developed worsening acute hypercapnic and hypoxic respiratory failure despite being on BiPAP-was intubated and mechanically ventilated With bilateral pleural effusions that were large now status post thoracenteses on 05/31 with 1 L removed from the left and 600 mL's from the right-transudate of Chest x-ray appears improved, however social work associate reports thoracic ultrasound at the bedside is worse today with pulmonary edema She did put out quite a bit of urine on a Bumex drip and is likely having a post ATN diuresis, but but now will discontinue diuretics Extubated on 06/02 and having respiratory distress and failure, requiring morphine for comfort -Was transitioned to comfort measures only on 06/02 as patient does not want to be on long-term ventilation as per her advanced directive (3) Acute on chronic diastolic CHF (congestive heart failure): Has had progressive dyspnea on exertion over the last 2 months, much worse in the last week prior to admission, and then significantly worse since receiving PRBC transfusion for anemia Echocardiogram with moderate aortic stenosis with preserved EF Question if this is been exacerbated by her septicemia and perhaps by suspected infective endocarditis She had multiple doses of IV Lasix and was still requiring BiPAP and eventually mechanical ventilation as above Her acute kidney injury is now significantly improved and she began having good urine output as above Chest x-ray improved with less pulmonary edema, however respiratory failure did not improve as above Have since discontinued all diuretics Continue comfort measures only (4) Hyponatremia: Sodium had been in the mid 120s throughout her entire stay and was likely due to volume overload and CHF-then improved to 135 No further labs to be done (5) ZAC (acute kidney injury): Baseline Cr is 0.8. - On 05/28, Cr bumped to 1.2 with Lasix diuresis. On 05/29, creatinine increased again to 2.19 and BUN up to 44, did receive IV diuretics but fractional excretion of sodium calculated to be prerenal, no granular casts on UA Because of her severe respiratory distress and worsening pulmonary edema, she was given total of 60 mg of IV Lasix on the morning of 05/29 with not a brisk response of urine output Creatinine was trending downward to 1.2 and then increased again to 1.3 Other electrolytes were improving as well, hyponatremia improving, with hypokalemia secondary to loop diuretic Transition to comfort care as above -No further labs to be drawn (6) Esophageal candidiasis: Seen on EGD -Previously treating with Diflucan x21-day course, have since transitioned to SAFE TECHNICIAN and have discontinued all antibiotics (7) MARTINEZ (dyspnea on exertion): Progressively worsening over the last 2 months, most likely secondary to acute on chronic diastolic CHF, symptomatic anemia, and pleural effusions CT chest on 05/24 showed mild emphysematous changes. Repeat CTA on 05/27 showed volume overload. -Now on morphine drip as above (8) Essential hypertension: No further antihypertensives to be given (9) GI bleed: Presented with anemia with hemoglobin of 8, now improved to 11.5 after PRBC transfusion on 05/24 EGD on 05/23 showed esophagitis consistent with candidiasis along with gastritis. No overt melena or hematochezia. CT a/p on 05/24 did not show any mass or concerning findings related to bleeding. - GI consulted - Appreciate recs Have now discontinued all antacids and antifungals (10) Carotid artery stenosis: Known to have bilateral SHITAL 50-69%, followed as an outpatient Discontinuing aspirin and statin (11) Elevated troponin: Mildly elevated at 0.5 and stable x3 in the setting of acute CHF as above and respiratory distress No ischemic pattern Echocardiogram on 05/22 without wall motion abnormalities Nuclear stress test canceled due to severe respiratory distress (12) Aortic stenosis: Moderate, noted on echocardiogram Likely contributed to her getting presumed endocarditis (13) DVT prophylaxis: Discontinued all DVT prophylaxis Disposition-was transitioned to medical floor for comfort measures only on 06/02, she will remain on morphine drip, IV Ativan as needed for agitation, and atropine as needed for secretions -Added on scopolamine patch today for further secretions Discussed her care with son and daughter at the bedside DNR/DNI Prognosis is very guarded and she will likely pass away within the next few days Subjective I saw the patient and her son and daughter around 9:30 AM this morning. They were requesting a trial of stopping the morphine drip to see if the patient would wake up as they thought that perhaps she was "breathing on her own." The daughter described that the patient's breathing seemed less labored through the night and wanted to see if she would wake up if the morphine drip was stopped. We discussed that this was a reasonable plan but that if the patient developed significant respiratory distress, we should transition back to the morphine drip as needed for comfort and respiratory distress or breathlessness. Family was all in agreement at the bedside -Later in the day in the afternoon, I was contacted by the nurse to say that the patient developed tachypnea, twitching, and significant respiratory distress. The family was then agreeable to restarting the morphine drip. She was also noting the patient to have a lot of moist secretions and a scopolamine patch was ordered. When I saw the patient this morning, she was completely unresponsive to loud verbal or tactile stimulus Review of Systems Review of Systems: Unobtainable due to reduced consciousness Physical Exam Constitutional: average body habitus and + frail appearing; no acute distress (Obtunded) ENMT: Mouth: + dry oral mucous membranes Neck: trachea midline, no thyromegaly Respiratory: no labored breathing Auscultation: + crackles (At the bases bilaterally); no rhonchi and no wheezes Cardiovascular: Rate/Rhythm: regular rate and + tachycardic Gastrointestinal (Abdomen): normal bowel sounds, soft, nontender, no hepatosplenomegaly Musculoskeletal: Extremities: extremities normal to inspection; no cyanosis and no clubbing Skin: no rashes, warm and dry Neurologic: + obtunded; + not awake Genitourinary: Benitez catheter in place with 150 cc of clear yellow urine PG Care Time/CCT Total # of Minutes Spent Total Time Spent with Patient: Total time spent is greater than 50% in coordination of care (as documented) at patient's floor/unit and/or counseling patient:
[2019-06-04] MEDS: CHECK SCOPOLAMINE PATCH PLACEMENT SCH ×2 (00:30→08:43)
--- NOTE | 2019-06-04 10:25 | Death Summary ---
Date of Service June 04, 2019 Pronouncement Note Date and Time of Date of : 06/04/19 Time of : 09:20 PCOD Preliminary cause of : Acute diastolic congestive heart failure Contributing Factors (1) Septicemia: (2) Acute respiratory failure with hypoxia: (3) Acute on chronic diastolic CHF (congestive heart failure): (4) Hyponatremia: (5) ZAC (acute kidney injury): (6) Esophageal candidiasis: (7) MARTINEZ (dyspnea on exertion): (8) Essential hypertension: (9) GI bleed: (10) Carotid artery stenosis: (11) Elevated troponin: (12) Aortic stenosis: (13) DVT prophylaxis: Summary Additional details: [facility] [place] [address] Hospitalist Progress Note Signed Patient: LINNEA LOMELI Date: 05/22/19 MR#: [id number] Phy: Emerald Carias MD Acct ID:[id number] Phy: Negar Headley Date: 1930Fam Phy: Age: 89Location: 4W Sex: F Room/Bed: [facility] cc: ~ *NOTICE TO RECEIVING REPUBLICAN/AGENCY This information is strictly Confidential and protected under [place] law. [place] law prohibits you from making any further disclosure of this information unless further disclosure is expressly permitted by the written consent of the person to whom it pertains or is authorized by law. A general authorization for the release of medical or other information is not sufficient for this purpose. Hospital accepts no responsibility if the information is made available to any other person, INCLUDING THE PATIENT. Date of Service June 03, 2019 Assessment & Plan (1) Septicemia: Presented with progressive fatigue and dyspnea since the end of March, but no reports of fevers. 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, no LILIAN performed due to decompensated condition as below -Started IV vancomycin but then infectious disease switched her to IV daptomycin given renal failure -Rocephin added on 05/31 as Streptococcus mitis can develop resistance to daptomycin -Consult infectious disease-appreciate recommendations -Benitez catheter exchanged on 05/31 -Plan was to treat empirically with 6 weeks of IV Rocephin, however then was transitioned to comfort measures only due to end-stage CHF and respiratory failure Was then obtunded and on IV morphine drip-continue comfort care plan (2) Acute respiratory failure with hypoxia: Secondary to acute on chronic diastolic CHF, with bilateral pleural effusions and pulmonary edema worsening on chest x-ray on 05/29 On the morning of 05/30, she continued to be in significant respiratory distress and developed worsening acute hypercapnic and hypoxic respiratory failure despite being on BiPAP-was intubated and mechanically ventilated With bilateral pleural effusions that were large now status post thoracenteses on 05/31 with 1 L removed from the left and 600 mL's from the right-transudate of Chest x-ray appears improved, however [place] reports thoracic ultrasound at the bedside is worse today with pulmonary edema She did put out quite a bit of urine on a Bumex drip and is likely having a post ATN diuresis, but but now will discontinue diuretics Extubated on 06/02 and having respiratory distress and failure, requiring morphine for comfort -Was transitioned to comfort measures only on 06/02 as patient does not want to be on long-term ventilation as per her advanced directive (3) Acute on chronic diastolic CHF (congestive heart failure): Has had progressive dyspnea on exertion over the last 2 months, much worse in the last week prior to admission, and then significantly worse since receiving PRBC transfusion for anemia Echocardiogram with moderate aortic stenosis with preserved EF Question if this is been exacerbated by her septicemia and perhaps by suspected infective endocarditis She had multiple doses of IV Lasix and was still requiring BiPAP and eventually mechanical ventilation as above Her acute kidney injury is now significantly improved and she began having good urine output as above Chest x-ray improved with less pulmonary edema, however respiratory failure did not improve as above Have since discontinued all diuretics Continue comfort measures only (4) Hyponatremia: Sodium had been in the mid 120s throughout her entire stay and was likely due to volume overload and CHF-then improved to 135 No further labs to be done (5) ZAC (acute kidney injury): Baseline Cr is 0.8. - On 05/28, Cr bumped to 1.2 with Lasix diuresis. On 05/29, creatinine increased again to 2.19 and BUN up to 44, did receive IV diuretics but fractional excretion of sodium calculated to be prerenal, no granular casts on UA Because of her severe respiratory distress and worsening pulmonary edema, she was given total of 60 mg of IV Lasix on the morning of 05/29 with not a brisk response of urine output Creatinine was trending downward to 1.2 and then increased again to 1.3 Other electrolytes were improving as well, hyponatremia improving, with hypokalemia secondary to loop diuretic Transition to comfort care as above -No further labs to be drawn (6) Esophageal candidiasis: Seen on EGD -Previously treating with Diflucan x21-day course, have since transitioned to [employer]OUNTANT and have discontinued all antibiotics (7) MARTINEZ (dyspnea on exertion): Progressively worsening over the last 2 months, most likely secondary to acute on chronic diastolic CHF, symptomatic anemia, and pleural effusions CT chest on 05/24 showed mild emphysematous changes. Repeat CTA on 05/27 showed volume overload. -Now on morphine drip as above (8) Essential hypertension: No further antihypertensives to be given (9) GI bleed: Presented with anemia with hemoglobin of 8, now improved to 11.5 after PRBC transfusion on 05/24 EGD on 05/23 showed esophagitis consistent with candidiasis along with gastritis. No overt melena or hematochezia. CT a/p on 05/24 did not show any mass or concerning findings related to bleeding. - GI consulted - Appreciate recs Have now discontinued all antacids and antifungals (10) Carotid artery stenosis: Known to have bilateral SHITAL 50-69%, followed as an outpatient Discontinuing aspirin and statin (11) Elevated troponin: Mildly elevated at 0.5 and stable x3 in the setting of acute CHF as above and respiratory distress No ischemic pattern Echocardiogram on 05/22 without wall motion abnormalities Nuclear stress test canceled due to severe respiratory distress (12) Aortic stenosis: Moderate, noted on echocardiogram Likely contributed to her getting presumed endocarditis (13) DVT prophylaxis: Discontinued all DVT prophylaxis Disposition-was transitioned to medical floor for comfort measures only on 06/02, she remained on morphine drip, IV Ativan as needed for agitation, and atropine as needed for secretions -Added on scopolamine patch for further secretions Pt peacefully with her family at her bedside Additional Data Confirmation of : no pulse, no respirations, no heart sounds and pupils fixed and dilated Family: at bedside Attending/PCP notified?: Yes Attending physician: Emerald Carias MD Was code activated?: No Autopsy requested?: No
--- NOTE | 2019-06-07 08:55 | Coding Query ---
PRESENT ON ADMISSION QUERY To promote full compliance with coding requirements relating to pateint care, physician participation is requested in all cases of manufacturing chief engineer uncertainty. Please assist us with the question(s) below: Please place an X within the parenthesis (x). The following diagnosis(es) listed in this patient's medical record require physician assistance to determine if they were present on admission (POA) or not. Please advise for each diagnosis whether it was present on admission, not present on admission, or if it was clinically undetermined. 1. Septicemia ( x) Present On Admission ( ) Not Present On Admission ( ) Clinically Undetermined 2. MRSA UTI ( ) Present On Admission ( ) Not Present On Admission ( x) Clinically Undetermined ( ) Ruled-out Thank you Araceli Novoa *Definition of the present on admission (POA)-Present on admission is defined as present at the time the order for inpatient admission occurs. Conditions that develop during an outpatient encounter prior to a written order for inpatient admission (including emergency department, observation, or outpatient surgery) are considered present on admission. SOPHIA
== END 2019-06-04 13:04 | disposition expired | DRG 871 ==
LOC: ED 10:16 → SUATTDRO 12:33 → 2S 12:33 → 1E 05-29 12:15 → 4W 06-02 16:26